=== PATIENT | female | born 1935 | race Caucasian/White ===

== ENCOUNTER 2017-09-13 05:16 | Emergency (ER) | payer MEDICARE, OTHER, SELFPAY ==
[2017-09-13 05:17] VITALS: BP 117/65; PULSE 108; RESP 18; TEMP 36.7; BMI 26.4
--- NOTE | 2017-09-13 05:21 | NURSING ---
CALLED FOR EKG PER RN REQUEST, PULLED OLD EKG'S FOR
--- NOTE | 2017-09-13 05:33 | ED.DCSUM_ITS ---
- ER Visit Summary Date of Service: 09/13/17 Chief Complaint: [] Palpitations fast heart rate History of Present Illness: The patient is a 82 F complaining of palpitations. She woke with it 1 hour ago. She feels and currently. They are mild. She has no pain. She was seen 2 weeks ago for the same. No previous ablation. She does have a pacemaker. Her labs and EKG and chest x-ray were negative. Including a troponin. She has an appointment September 27 with her matching machine operator. She is on metoprolol for the above. She has a history of SVT and paroxysmal A. fib. Physical Examination: [] Vital signs reviewed General: Well-nourished well-developed Head: Normocephalic atraumatic Eyes: Pupils equal round and reactive to light extraocular movements intact ENT: TMs clear no hemotympanum no trauma Neck: Nontender full range of motion Cardiovascular: Regular rate rhythm no murmurs normal S1-S2 Respiratory: No distress clear to auscultation bilaterally chest nontender Abdomen: Soft nontender nondistended normal bowel sounds no masses Back: Nontender no CVA tenderness Extremities: Nontender active range of motion ?4 extremities no trauma Skin: Normal color no trauma Neuro alert oriented cranial nerves II through XII intact normal strength sensation reflexes Test Results: [] Emergency Department Course and Treatment: [] Cardiogram shows sinus rhythm at a rate of 98. No acute ischemia or arrhythmia. Patient was monitored for 1 hour without arrhythmia. I do not feel she needs repeat blood work as she just had this less 2 weeks ago. I do not feel she needs cardiac enzymes. She has no chest pain. She seen her medications and follow-up with her doctor. Treatment Plan: [] Disposition: [] Impression: [] Palpitations This note was generated with [employer] dictation software. It may contain incorrect words, spelling, and punctuation that were not noted in review of the chart prior to signing ED Disposition - Plan for ED Patient: Chief Complaint: Palpitations Referrals: Johnny Arguello MD [Primary Care Provider] -
--- NOTE | 2017-09-13 05:33 | ED.DEP ---
ED Disposition - Plan for ED Patient: Disposition: Home or Assisted Living Chief Complaint: Palpitations Instructions: ED Palpitations Referrals: Johnny Arguello MD [Primary Care Provider] - Bradley Lowe MD [STAFF PHYSICIAN] -
[2017-09-13 06:00] VITALS: BP 132/64; PULSE 85
[2017-09-13 06:29] VITALS: BP 135/63; PULSE 87; RESP 18; O2SAT 97
== END 2017-09-13 06:46 | disposition home or self-care (01) ==
PROVIDERS: Emergency Provider Emergency Medicine; Family Provider Family Medicine; PCP Family Medicine
DX: R00.2 Palpitations (principal); I47.1 Supraventricular tachycardia; I48.0 Paroxysmal atrial fibrillation; Z95.0 Presence of cardiac pacemaker; E78.00 Pure hypercholesterolemia, unspecified; F41.9 Anxiety disorder, unspecified; Z79.82 Long term (current) use of aspirin; Z79.899 Other long term (current) drug therapy
CPT/HCPCS: 99284; A4216

== ENCOUNTER → 2017-09-23 07:06 | Outpatient (CLI) | payer MEDICARE, OTHER, SELFPAY ==
[2017-09-23 09:37] LABS: AST(SGOT) 22 U/L (15-37); Alanine Aminotransfer ALT/SGPT 27 U/L (13-56); Albumin, Serum 3.7 g/dL (3.2-5.0); Alkaline Phosphatase 92 U/L (45-117); Bilirubin, Direct 0.13 mg/dL (0.00-0.30); Cholesterol 167 mg/dL (200); Globulin 3.9 g/dL (2.2-4.2); High Density Lipoprotein 67 mg/dL; Protein, Total 7.6 g/dL (6.4-8.2); Triglycerides 95 mg/dL; Very Low Density Lipoprotein 19 mg/dL (5-40)
== END ==
PROVIDERS: Family Provider Family Medicine; PCP Family Medicine; Visit Provider Physician Assistant Medical
DX: E78.5 Hyperlipidemia, unspecified (principal); Z79.899 Other long term (current) drug therapy
CPT/HCPCS: 36415; 80061; 80076

== ENCOUNTER → 2017-11-21 09:32 | Outpatient (CLI) | payer MEDICARE, OTHER, SELFPAY ==
--- NOTE | 2017-11-21 09:33 | ECHOD_ITS ---
Reason For Study: VALVULAR DISEASE Procedure This was a 2D Doppler, Color Flow transthoracic echocardiogram. The exam was of adequate technical quality. Exam performed in department. Left Ventricle Normal LV size. Left ventricular systolic function is normal. The estimated ejection fraction is 65 %. Unable to assess diastolic dysfunction. No regional wall motion abnormalities noted. Right Ventricle Normal RV size. ICD or pacer leads identified within the right ventricle. Normal systolic function. Atria The left atrium is moderately enlarged. Normal right atrium. ICD or pacer leads identified within the right atrium. No doppler evidence for ASD. Mitral Valve There is severe mitral annular calcification. Extension of the mitral annular calcification onto the posterior mitral valve leaflet. Mild focal mitral valve calcification of the anterior leaflet. Moderate mitral valve stenosis. Mild-Moderate (1-2+) mitral valve insufficiency. Tricuspid Valve Normal tricuspid valve. Mild tricuspid valve insufficiency. Right ventricular systolic pressure estimated to be 37 mmHg. Aortic Valve Trisinus/trileaflet aortic valve. Moderate focal aortic valve thickening. Mild aortic stenosis. Pulmonic Valve The pulmonic valve is not well visualized. Trivial pulmonic valve insufficiency. Great Vessels Normal sized aortic root. Calcified aortic root. Pericardium/Pleural No pericardial effusion. MMode/2D Measurements & Calculations LVIDd: 2.7 cm IVSd: 1.3 cm LVOT diam: 1.9 cm LVIDs: 1.8 cm LVPWd: 1.1 cm LVOT area: 2.8 cm2 RVDd: 3.0 cm FS: 35.2 % MVA(traced): 1.3 cm2 Ao root diam: 2.8 cm LAV(MOD-bp): 67.4 ml LAV(MOD-bp) Indexed: 39.9 ml/m2 LAV(MOD-sp2): 101.0 ml LAV(MOD-sp4): 37.3 ml EDV(MOD-sp4): 67.3 ml EDV(MOD-sp2): 41.1 ml SV(MOD-sp4): 52.3 ml ESV(MOD-sp4): 15.1 ml EF(MOD-sp2): 67.6 % EF(MOD-sp4): 77.6 % SV(MOD-sp2): 27.8 ml LA A4 area: 15.9 cm2 RA A4 area: 9.1 cm2 Doppler Measurements & Calculations MV E max avelino: 148.3 cm/sec MV V2 max: 249.3 cm/sec Ao V2 max: 266.2 cm/sec MV A max avelino: 226.9 cm/sec MV max P.9 mmHg Ao max P.4 mmHg MV E/A: 0.65 MV V2 mean: 152.0 cm/sec Ao V2 mean: 179.9 cm/sec MV mean P.2 mmHg Ao mean P.8 mmHg MV V2 VTI: 68.7 cm Ao V2 VTI: 56.8 cm MVA(VTI): 1.2 cm2 JOMAR(I,D): 1.4 cm2 JOMAR(V,D): 1.4 cm2 LV V1 max: 127.5 cm/sec SV(LVOT): 79.2 ml PA V2 max: 104.2 cm/sec LV V1 max P.5 mmHg LV V1 mean P.6 mmHg LV V1 mean: 88.7 cm/sec LV V1 VTI: 28.1 cm TR max avelino: 290.4 cm/sec TR max P.1 mmHg Interpretation Summary Left ventricular systolic function is normal. The estimated ejection fraction is 65 %. The left atrium is moderately enlarged. There is severe mitral annular calcification. Extension of the mitral annular calcification onto the posterior mitral valve leaflet. Mild focal mitral valve calcification of the anterior leaflet. Moderate mitral valve stenosis. Mild-Moderate (1-2+) mitral valve insufficiency. Mild tricuspid valve insufficiency. Moderate focal aortic valve thickening. Mild aortic stenosis. Trivial pulmonic valve insufficiency. Calcified aortic root. Right ventricular systolic pressure estimated to be 37 mmHg. Unable to assess diastolic dysfunction. ICD or pacer leads identified within the right atrium ICD or pacer leads identified within the right ventricle. Ordering Physician: Alisia Snider/Bradley Lowe Referring Physician: HERSON ROUSE Performed By: Cheri Lopez, ERICKACS, RVT
--- NOTE | 2017-11-21 09:33 | CDU_ITS ---
Reason For Study: Carotid bruit Rt. Velocities/BP Lt. Velocities/BP Prox CCA 86.8/8.2 cm/sec. Prox CCA 99.7/17.6 cm/sec. Mid CCA 89.7/11.7 cm/sec. Mid CCA 104.0/21.1 cm/sec. Dist CCA 73.9/12.3 cm/sec. Dist CCA 95.0/14.7 cm/sec. Prox ICA 65.7/14.1 cm/sec. Prox ICA 63.9/17.0 cm/sec. Mid ICA 52.6/12.2 cm/sec. Mid ICA 78.0/18.8 cm/sec. Dist ICA 58.7/12.6 cm/sec. Dist ICA 59.4/16.1 cm/sec. Rt. ICA/CCA = .73. Lt. ICA/CCA = .75. Prox ECA 55.7/0.0 cm/sec. Prox ECA 90.9/4.1 cm/sec. Rt. Vert. 37.5/7.6 cm/sec. Lt. Vert. 52.2/15.8 cm/sec. Right Extracranial There is intimal thickening but no significant atherosclerotic plaque noted in the right common carotid artery. There is heterogeneous, irregular atherosclerotic plaque noted in the right internal carotid artery. There is intimal thickening but no significant atherosclerotic plaque noted in the right external carotid artery. Antegrade flow is noted in the right vertebral artery. Left Extracranial There is intimal thickening but no significant atherosclerotic plaque noted in the left common carotid artery. There is heterogeneous, irregular atherosclerotic plaque noted in the left internal carotid artery. There is no significant atherosclerotic plaque noted in the left external carotid artery. Antegrade flow is noted in the left vertebral artery. Procedure Carotid Duplex [id number]. Exam performed in department. Interpretation Summary Mild (<50%) stenosis right extracranial internal carotid. Mild (<50%) stenosis left extracranial internal carotid. Flow within the vertebral arteries is antegrade bilaterally. Ordering Physician: Alisia Snider Referring Physician: Johnny Arguello Performed By: Malka Olivera RVT
== END ==
PROVIDERS: Family Provider Family Medicine; PCP Family Medicine; Visit Provider Physician Assistant Medical
DX: I47.1 Supraventricular tachycardia (principal); I36.1 Nonrheumatic tricuspid (valve) insufficiency; I25.10 Atherosclerotic heart disease of native coronary artery without angina pectoris; I35.9 Nonrheumatic aortic valve disorder, unspecified; R09.89 Other specified symptoms and signs involving the circulatory and respiratory systems
CPT/HCPCS: 93306; 93880

== ENCOUNTER → 2017-12-15 11:38 | Outpatient (CLI) | payer MEDICARE, OTHER, SELFPAY ==
--- NOTE | 2017-12-15 11:40 | BI_ITS ---
MAMMOGRAPHY - BILATERAL SCREENING REASON FOR EXAM: Female, 82 years old. Routine annual screening examination. PERTINENT HISTORY: Non-contributory. TECHNIQUE: Digital bilateral breast hortensia (3D mammographic acquisition) in the CC and MLO projections. 2-D mediolateral oblique (MLO) and craniocaudad (CC) views of both breasts were obtained. CAD: Full Field Digital Mammography with Computer Added Detection was performed. COMPARISON: Comparison is made with prior study dated December 02, 2016 and December 02, 2015. FINDINGS: Breast Composition: The breasts are heterogeneously dense, which may obscure small masses. There are no dominant masses or suspicious calcifications. No other significant abnormalities are identified. There has been no significant change since the prior study. BI/SCREENING MAMM (CAD), BILAT IMPRESSION: Stable bilateral screening mammogram. Yearly follow-up mammogram recommended. (A) ASSESSMENT CATEGORY: BIRADS Category 1: Negative. A letter regarding these results will be sent to the patient by the facility within 30 days. Approximately 10% of breast cancers are not detected by mammography. A normal mammogram should not delay biopsy of a clinically suspicious abnormality. [id number] Electronically Signed: Elie Ramos MD at 8:41 EDT Tel [phone], Service support ,
== END ==
PROVIDERS: Family Provider Family Medicine; PCP Family Medicine; Visit Provider Family Medicine
DX: Z12.31 Encounter for screening mammogram for malignant neoplasm of breast (principal)
CPT/HCPCS: 77063; 77067

== ENCOUNTER 2018-02-11 17:28 | Emergency (ER) | payer MEDICARE, OTHER, SELFPAY ==
[2018-02-11 17:30] VITALS: BP 168/91; PULSE 98; RESP 16; TEMP 36.7; O2SAT 97; BMI 26.4
--- NOTE | 2018-02-11 17:48 | EKG12_ITS ---
Test Reason : GEN ILLNESS Blood Pressure : / mmHG Vent. Rate : 092 BPM Atrial Rate : 092 BPM P-R Int : 220 ms QRS Dur : 088 ms QT Int : 368 ms P-R-T Axes : 064 038 085 degrees QTc Int : 455 ms Sinus rhythm with 1st degree A-V block Otherwise normal ECG Confirmed by TRAVIS MCNAMARA, MERCEDES ([id number]), news videotape editor EARLENE ROUSE ([id number]) on 02/13/2018 3:05:30 PM Referred By: NICK Confirmed By:MERCEDES ROBLES MD
[2018-02-11] MEDS: 0.9% Normal Saline 1,000 ML 1000 ML IV (18:11)
[2018-02-11 18:15] VITALS: BP 136/62; PULSE 67; RESP 17; O2SAT 96
[2018-02-11 18:22] LABS: Absolute Lymphocyte Count 1.33 X10^3/ul (0.83-4.51); Absolute Neutrophil Count 4.2 X10^3/uL (2.0-7.7); Basophil# 0.01 X10^3/uL; Basophil% 0.2 % (0-1); Eosinophils% 1.6 % (0-5); Hematocrit 40.4 % (37-47); Hemoglobin 13.3 g/dl (12.0-15.0); Lymphocyte # 1.33 X10^3/ul (4.0); Lymphocyte % 21.3 % (19-41); Mean Corp Hgb Conc 32.9 g/gl (32-36); Mean Corpuscular Hgb 30.9 pg (27.0-32.0); Mean Corpuscular Volume 93.7 fL (81-99); Mean Platelet Vol. 12.9 fl (6.2-12.0); Monocyte# 0.59 X10^3/uL; Monocyte% 9.5 % (0-10); Neutrophil % 67.2 % (47-70); POSITIVE COUNT NO; POSITIVE DIFFERENTIAL NO; POSITIVE MORPHOLOGY NO; Platelet Count 105 K/mm3 (150-450); RBC Distribution Width CV 13.7 % (11.6-14.6); RBC Distribution Width SD 46.8 fl (35.1-43.9); Red Blood Count 4.31 M/mm3 (4.2-5.4); White Blood Count 6.2 K/mm3 (4.4-11.0)
--- NOTE | 2018-02-11 18:23 | ED.DCSUM_ITS ---
- ER Visit Summary Date of Service: 02/11/18 Chief Complaint: General illness History of Present Illness: The patient is a 83 F presents to the emergency department generalized illness. Patient states she woke in just felt useless . She states that everything just felt like it was in knots. She denies any chest pain, shortness of breath, nausea, vomiting, or fever. She states throughout the day, her symptoms have improved. She states that she does have a history of anxiety but has never had symptoms like this before. The patient does have a history of hypertension and prior OH. She denies any headache. She has no focal weakness. She denies any trouble with speech or with balance. Physical Examination: Vital signs reviewed General: Well-nourished, well-developed Head: Normocephalic, atraumatic Eyes: Pupils equal and reactive, extraocular muscles intact Neck, supple, no lymphadenopathy Heart: Regular rate and rhythm Respiratory: No distress, clear bilaterally Abdomen: Soft, nontender, nondistended, no peritoneal signs Back: Nontender Extremities: Nontender, no edema, no cords Skin: Normal color no rash Neuro: Alert and oriented, no focal or lateralizing deficits Test Results: [] Emergency Department Course and Treatment: [The patient presents with generalized illness. She has absolutely no symptoms aside from some fatigue. Her exam is comforting. She has no focal weakness. Her lungs are clear. She is not hypoxic, tachypneic, or tachycardic. EKG was obtained which showed sinus rhythm without ischemic change. Screening labs are also unremarkable. With fluids and observation, the patient's symptoms had abated. I do feel that this may be a component of anxiety. I did cemetery counselor the patient that if her symptoms change in any way that she needs to return immediately. She and son at bedside are comfortable this plan of care. She will be discharged home. Treatment Plan: [] Disposition: Discharge Impression: Generalized illness-resolved This note was generated with [employer] dictation software. It may contain incorrect words, spelling, and punctuation that were not noted in review of the chart prior to signing ED Disposition - Plan for ED Patient: Chief Complaint: General Illness Instructions: ED Weakness [facility] Referrals: Johnny Arguello MD [Primary Care Provider] -
[2018-02-11 18:34] LABS: Anion Gap 8 (5-15); BUN 20 mg/dL (7-18); BUN/Creat Ratio 20.9 RATIO (10-20); Chloride 105 mmol/L (98-107); Creatinine, Serum 0.96 mg/dL (0.55-1.02); EST Glomerular Filtration Rate 59 mL/min (>60); Est Glom Filt Rate - Afr Amer 72 mL/min (>60); Estimated Creatinine Clearance 38.34 ml/min; Glucose 135 mg/dL (74-106); Potassium 3.9 mmol/L (3.5-5.1); Sodium Level 142 mmol/L (136-145)
[2018-02-11 18:59] VITALS: BP 133/56; PULSE 81; RESP 20
== END 2018-02-11 19:01 | disposition home or self-care (01) ==
LOC: ED 18:29
PROVIDERS: Emergency Provider Emergency Medicine; Family Provider Family Medicine; PCP Family Medicine
DX: R69 Illness, unspecified (principal); R53.83 Other fatigue; I25.10 Atherosclerotic heart disease of native coronary artery without angina pectoris; I25.2 Old myocardial infarction; I10 Essential (primary) hypertension; F41.9 Anxiety disorder, unspecified; E78.00 Pure hypercholesterolemia, unspecified; Z79.82 Long term (current) use of aspirin; Z79.899 Other long term (current) drug therapy
CPT/HCPCS: 80048; 85025; 93005; 96360; 99285; J7030

== ENCOUNTER 2018-08-13 09:00 | Emergency (ER) | payer MEDICARE, OTHER, SELFPAY ==
[2018-08-13 09:01] VITALS: BP 195/88; PULSE 72; RESP 18; TEMP 36.6; O2SAT 99; BMI 26.6
[2018-08-13] MEDS: LORazepam 1 MG Tablet PO (09:28)
--- NOTE | 2018-08-13 10:14 | ED.DCSUM_ITS ---
- ER Visit Summary Date of Service: 08/13/18 Chief Complaint: [Nerves] History of Present Illness: The patient is a 83 F [presents to the emergency department with complaint of feeling overwhelmed and nervous. Patient's felt this way since around 2017. Patient was seen by her primary care physician and started on escitalopram in June however she is been taking it as needed instead of on a regular basis. Patient also on imipramine for her anxiety. Patient denies any chest pain or shortness of breath. She denies feeling depressed or suicidal. She is been sleeping at night. She has been eating normally. Patient has no physical complaints. She only describes some slight fullness in her head.] Physical Examination: [HEENT-PERRLA, EOMI. Cranial nerves II through XII grossly intact. TMs clear. Mucous membranes moist. No adenopathy. Cardiovascular-regular rate and rhythm without murmur or ectopy Lungs-clear to auscultation, chest wall stable without crepitus or subcu emphysema Abdomen-normoactive bowel sounds, soft, nontender, no rebound or rigidity, no peritoneal signs. Extremities-intact ?4, normal range of motion, normal pulses, atraumatic] Test Results: [None indicated] Emergency Department Course and Treatment: [Patient was given Ativan 1 mg in the emergency department and on reevaluation she is feeling markedly improved.] Treatment Plan: [I discussed case with Dr. Bradley Reyna who was covering for Dr. Johnny Arguello who recommended as needed Ativan as well as continuing the Lexapro on a daily basis as well as the imipramine and follow-up with Dr. Johnny Arguello in the office.] Disposition: [Discharged home in stable condition] Impression: [Anxiety reaction] This note was generated with [employer] dictation software. It may contain incorrect words, spelling, and punctuation that were not noted in review of the chart prior to signing ED Disposition - Plan for ED Patient: Chief Complaint: General Illness Referrals: Johnny Arguello MD [Primary Care Provider] -
--- NOTE | 2018-08-13 10:14 | ED.DEP ---
ED Disposition - Plan for ED Patient: Chief Complaint: General Illness Instructions: ED Stress React Prescriptions: Lorazepam [Ativan] 0.5 mg PO TID PRN #20 tab PRN Reason: Anxiety Referrals: Johnny Arguello MD [Primary Care Provider] - 5-7 Days
== END 2018-08-13 10:46 | disposition home or self-care (01) ==
PROVIDERS: Emergency Provider Emergency Medicine; Family Provider Family Medicine; PCP Family Medicine
DX: F41.1 Generalized anxiety disorder (principal); I10 Essential (primary) hypertension; I47.1 Supraventricular tachycardia; I34.1 Nonrheumatic mitral (valve) prolapse; Z79.82 Long term (current) use of aspirin; Z79.899 Other long term (current) drug therapy
CPT/HCPCS: 99283

== ENCOUNTER 2019-01-07 07:58 | Emergency (ER) | payer MEDICARE, OTHER, SELFPAY ==
[2019-01-07 07:59] VITALS: BP 185/77; PULSE 84; RESP 16; TEMP 36.8; O2SAT 97; BMI 27.3
--- NOTE | 2019-01-07 08:17 | RAD_ITS ---
STUDY: X-RAY - ACUTE ABDOMINAL SERIES REASON FOR EXAM: Female, 83 years old. Ane constipation TECHNIQUE: Single view of the chest. Supine, and erect view(s) of the abdomen were obtained. COMPARISON: 08/30/2017 chest x-ray, 01/25/2016 CT scan abdomen and pelvis FINDINGS: There is a left-sided pacer with leads overlying the right atrium and ventricle. There are stable fibrotic changes suggested in the lung bases. The lungs are clear and expanded. Normal size heart. Normal mediastinum and jareth. Normal visualized pulmonary arteries. Normal visualized aortic arch and descending thoracic aorta. There is moderate stool in the colon. There is abundant stool within the sigmoid and rectum. Postoperative change in the right midline abdomen. There is dextroscoliosis of the lumbar spine. There is multilevel degenerative change. RAD/Acute Abdomen Inc Chest IMPRESSION: Stable chest. Pacemaker. Constipation fecal impaction. Scoliosis, degenerative change. Electronically Signed: Kalyn Martines MD at 8:57 EDT Tel , Service support ,
--- NOTE | 2019-01-07 08:23 | ED.DCSUM_ITS ---
History of Present Illness Chief Complaint: Abd Pain Detail of Chief Complaint: Sometimes upper sometimes lower Informant: Patient Onset: Month(s) - 4 months Timing: Intermittent Quality: It is presents Location: At times right and left upper quadrant and at times right and left lower qu Current Severity: - - Presently no discomfort Maximum Severity: - - Unable to quantitate. Worsened by: Nothing Relieved by: Nothing Associated Symptoms: Constipation, which patient states is a chronic issue Narrative: Patient is an 83-year-old woman who presents to determine what the cause of her upper and lower intermittent abdominal pain is. She states onset 4 months ago. She saw her primary care physician 1 month ago. She states he prescribed medication . She is on able to tell me what medication she was prescribed. She denies fever, chills night sweats. She denies weight gain or weight loss. She denies cardiac or respiratory symptoms. She presently denies abdominal pain. She states she has problems with bowel movement, which is chronic. She denies change in color, consistency or frequency of her bowel movements. Prior similar symptoms: Yes Recent Illness/Hospitalization: Yes - Past Medical History (1) Acute myocardial infarction Status: Chronic (2) Atrioventricular block, complete Status: Chronic (3) Benign essential hypertension Status: Chronic (4) CAD (coronary artery disease) Status: Chronic Comment: had a cardiac cath and no intervention necessary. (5) Hyperlipidemia Status: Chronic (6) Hypertension Status: Chronic (7) Pulmonary HTN Status: Chronic (8) Supraventricular tachycardia Status: Chronic Past Medical History - Allergies and Home Meds Allergies/Adverse Reactions: Allergies No Known Allergies Allergy (Verified 01/07/19 07:59) Primary Care Physician: Johnny Arguello MD [Primary Care Provider] - Prior records reviewed: Yes Surgical History: cataract - bilateral, cholecystectomy, hysterectomy - with oophorectomy for fibroids, pacemaker implantation - October of [address] Perez Lives: Alone Smoking Status: Never smoker Alcohol: None - Family History Maternal Family History: Reports: - - Her mother choked to in a restaurant but had no significan chronic medical illnesses. Paternal Family History: Reports: - - her father at 89 YOA of old AGE Sibling Family History: Reports: No pertinent history, - - she had a siser who at 12 YOA with a copper storage disease Review of Systems General: Denies: Chills, Fever, Malaise, Subjective, Sweats, Weight loss Eyes: Denies: Visual changes - bilaterally, Blurred Vision - bilaterally, Diplopia ENT: Denies: Rhinorrhea, Sore throat Cardiovascular: Denies: Chest pain, Palpitations Respiratory: Denies: Dyspnea, Cough, Dyspnea on exertion, Orthopnea, Paroxysmal nocturnal dyspnea Gastrointestinal: Reports: Abdominal pain, Constipation. Denies: Nausea, Vomiting, Diarrhea, Melena, Hematochezia Genitourinary: Denies: Dysuria, Hematuria, Frequency Musculoskeletal: Denies: Back pain, Extremity Pain Skin: Denies: Rash, Wounds Neurological: Denies: Headache, Weakness, Numbness Hematologic: Denies: Easy bruising, Easy bleeding Allergy: Denies: Uticaria, Swelling of the mouth Physical Exam Vital Signs/Narrative: Vital Signs Temp Pulse Resp BP Pulse Ox 01/07/19 07:59 98.2 F 84 16 185/77 H 97 Inital Vital Signs reviewed: Yes General: Well nourished, Well developed, No Acute Distress Head: Normocephalic, Atraumatic Eyes: Perrl, EOMI ENT: Moist mucous membranes, No rhinorrhea Neck: Supple, Nontender Cardiovascular: Regular rate, Regular rhythm, No murmurs Respiratory: No distress, CTA bilaterally, Chest nontender Abdomen: Soft, Nontender, Nondistended, Normal bowel sounds, No masses, - - Well-healed surgical scars noted. Back: Nontender, Normal Inspection Extremities: Nontender, No edema Skin: Normal color, No rash Neurological: Alert, Oriented x3, Cranial nerves II-XII grossly intact, Normal Strength, Normal Sensation Psychological: Normal affect, Normal Mood Diagnostic/Tx/Re-eval Chest X-Ray - ED: - - Three-view x-ray of the abdomen reveals no acute process on the chest portion. There is minimal chronic changes. Dual-chamber pacemaker noted. Film is rotated. The abdominal portion reveals evidence of scoliosis. No ossific gas pattern with significant amount of stool distal of the splenic fracture and in the sigmoid/rectal area. There is no evidence of free air or obstruction. - Medical Decision Making With intermittent discomfort for 4 months and presently no discomfort uncertain cause. Because patient is elderly will obtain CBC and BMP as well as x-ray. If evidence of anemia or hypercalcemia will scan looking for malignancy otherwise w ould be appropriate for outpatient follow-up and possible colonoscopy. Blood sugar is elevated. She is not diabetic. We will have her follow-up with Dr. JEFF Arguello for repeat blood work. Will place on MiraLAX 3 times a day for the next week. ED Disposition - Plan for ED Patient: Disposition: Home or Assisted Living Diagnosis: Bilateral lower abdominal pain, Hyperglycemia, unspecified, Constipation in female Instructions: ED Abdominal Pain Unkn Cause, ED Constipation, ED Hyperglycemia New Susp Diabetes Referrals: Johnny Arguello MD [Primary Care Provider] - 3-5 Days Additional Instructions: Recommend MiraLAX 3 times a day for the next 1 to 2 weeks then twice a day thereafter. Recommend follow-up with Dr. JEFF Arguello in 5 to 7 days for blood work and specifically assess blood sugar.
[2019-01-07 08:32] LABS: Absolute Lymphocyte Count 0.86 X10^3/ul (0.83-4.51); Absolute Neutrophil Count 5.2 X10^3/uL (2.0-7.7); Basophil# 0.03 X10^3/uL; Basophil% 0.4 % (0-1); Eosinophil# 0.13 X10^3/uL; Eosinophils% 1.9 % (0-5); Hematocrit 40.8 % (37-47); Hemoglobin 13.3 g/dl (12.0-15.0); Lymphocyte # 0.86 X10^3/ul (4.0); Lymphocyte % 12.7 % (19-41); Mean Corp Hgb Conc 32.6 g/gl (32-36); Mean Corpuscular Hgb 31.4 pg (27.0-32.0); Mean Corpuscular Volume 96.2 fL (81-99); Mean Platelet Vol. 13.1 fl (6.2-12.0); Monocyte# 0.52 X10^3/uL; Monocyte% 7.7 % (0-10); Neutrophil # 5.21 X10^3/uL (2.7-7.7); Platelet Count 122 K/mm3 (150-450); RBC Distribution Width CV 14.9 % (11.6-14.6); RBC Distribution Width SD 50.5 fl (35.1-43.9); Red Blood Count 4.24 M/mm3 (4.2-5.4); White Blood Count 6.8 K/mm3 (4.4-11.0)
[2019-01-07 08:33] LABS: POSITIVE COUNT NO; POSITIVE DIFFERENTIAL NO; POSITIVE MORPHOLOGY NO
[2019-01-07 08:46] LABS: Anion Gap 10 (5-15); BUN 16 mg/dL (7-18); Calcium,Total 8.9 mg/dL (8.5-10.1); Chloride 104 mmol/L (98-107); EST Glomerular Filtration Rate 56 mL/min (>60); Est Glom Filt Rate - Afr Amer 68 mL/min (>60); Estimated Creatinine Clearance 36.81 ml/min; Glucose 151 mg/dL (74-106); Sodium Level 144 mmol/L (136-145)
[2019-01-07 08:57] VITALS: BP 165/72; PULSE 72; RESP 16; O2SAT 98
--- NOTE | 2019-01-07 09:25 | ED.RN ---
pt requested to walk home instead of waiting for a ride. physician ok with that.
== END 2019-01-07 09:32 | disposition home or self-care (01) ==
PROVIDERS: Emergency Provider Emergency Medicine; Family Provider Family Medicine; PCP Family Medicine
DX: R10.31 Right lower quadrant pain (principal); R10.32 Left lower quadrant pain; R73.9 Hyperglycemia, unspecified; K56.41 Fecal impaction; I25.10 Atherosclerotic heart disease of native coronary artery without angina pectoris; I25.2 Old myocardial infarction; I10 Essential (primary) hypertension; E78.5 Hyperlipidemia, unspecified; I27.20 Pulmonary hypertension, unspecified; I47.1 Supraventricular tachycardia; I44.2 Atrioventricular block, complete; Z95.0 Presence of cardiac pacemaker; Z79.82 Long term (current) use of aspirin; Z79.899 Other long term (current) drug therapy
CPT/HCPCS: 74022; 80048; 85025; 99285

== ENCOUNTER → 2019-03-07 13:21 | Outpatient (CLI) | payer MEDICARE, OTHER, SELFPAY ==
[2019-02-19 10:52] VITALS: BMI 27.4
--- NOTE | 2019-03-07 13:26 | ECHOD_ITS ---
Reason For Study: MURMUR Procedure This was a 2D Doppler, Color Flow transthoracic echocardiogram. The study was technically difficult. Exam performed in department. Left Ventricle Normal left ventricle. Left ventricular systolic function is normal. The estimated ejection fraction is 65 %. There is evidence of diastolic dysfunction. No regional wall motion abnormalities noted. Right Ventricle Normal RV size. ICD or pacer leads identified within the right ventricle. Normal systolic function. Atria The left atrium is moderately enlarged. Normal right atrium. ICD or pacer leads identified within the right atrium. No doppler evidence for ASD. Mitral Valve There is severe mitral annular calcification. Extension of the mitral annular calcification onto the mitral valve leaflets. Moderate to severe mitral valve stenosis. Mild (1+) mitral valve insufficiency. Tricuspid Valve Normal tricuspid valve. Trivial tricuspid valve insufficiency. Right ventricular systolic pressure estimated to be 36 mmHg. Aortic Valve Trisinus/trileaflet aortic valve. Mild diffuse aortic valve thickening. Mild focal aortic valve calcification. Moderate aortic stenosis. Pulmonic Valve The pulmonic valve is not well visualized. Trivial pulmonic valve insufficiency. Great Vessels The aortic root is not well visualized. Pericardium/Pleural No pericardial effusion. MMode/2D Measurements & Calculations RVDd: 3.0 cm LVOT diam: 1.9 cm LAV(MOD-bp): 78.9 ml LVOT area: 2.9 cm2 LAV(MOD-bp) Indexed: 44.3 ml/m2 LAV(MOD-sp2): 67.0 ml LAV(MOD-sp4): 68.8 ml LA dimension(2D): 3.7 cm LA A4 area: 19.9 cm2 RA A4 area: 12.6 cm2 Time Measurements MV dec time: 0.43 sec Doppler Measurements & Calculations MV E max fransico: 165.4 cm/sec Lat Peak E' Fransico: 7.0 cm/sec Med Peak E' Fransico: 3.6 cm/sec MV A max fransico: 224.2 cm/sec E/E' lat: 23.6 E/E' med: 46.3 MV E/A: 0.74 MV V2 max: 255.8 cm/sec MV P1/2t max fransico: 165.6 cm/sec Ao V2 max: 284.8 cm/sec MV max P.2 mmHg MV P1/2t: 134.8 msec Ao max P.6 mmHg MV V2 mean: 151.1 cm/sec MV dec slope: 360.0 cm/sec2 Ao V2 mean: 200.5 cm/sec MV mean P.2 mmHg Ao mean P.5 mmHg MV V2 VTI: 67.3 cm MVA(P1/2t): 1.6 cm2 Ao V2 VTI: 57.4 cm MVA(VTI): 0.99 cm2 JOMAR(I,D): 1.2 cm2 JOMAR(V,D): 1.0 cm2 LV V1 max: 101.2 cm/sec SV(LVOT): 66.8 ml PA V2 max: 100.7 cm/sec LV V1 max P.2 mmHg LV V1 mean P.3 mmHg LV V1 mean: 71.4 cm/sec LV V1 VTI: 22.8 cm TR max fransico: 288.2 cm/sec MV P1/2t-pr_phl: 116.5 msec TR max P.2 mmHg Interpretation Summary The study was technically difficult. Left ventricular systolic function is normal. The estimated ejection fraction is 65 %. The left atrium is moderately enlarged. There is severe mitral annular calcification. Extension of the mitral annular calcification onto the mitral valve leaflets. Moderate to severe mitral valve stenosis. Mild (1+) mitral valve insufficiency. Trivial tricuspid valve insufficiency. Moderate aortic stenosis. Trivial pulmonic valve insufficiency. Right ventricular systolic pressure estimated to be 36 mmHg. There is evidence of diastolic dysfunction. ICD or pacer leads identified within the right atrium ICD or pacer leads identified within the right ventricle. Ordering Physician: Bradley Lowe Referring Physician: Johnny Arguello Performed By: Salima Maher, RDCS, RVT
[2019-03-07 17:00] LABS: AST(SGOT) 26 U/L (15-37); Alanine Aminotransfer ALT/SGPT 28 U/L (13-56); Alkaline Phosphatase 85 U/L (45-117); Bilirubin, Direct 0.13 mg/dL (0.00-0.30); Cholesterol 209 mg/dL (200); High Density Lipoprotein 74 mg/dL; Triglycerides 114 mg/dL; Very Low Density Lipoprotein 23 mg/dL (5-40)
== END ==
PROVIDERS: Family Provider Family Medicine; PCP Family Medicine; Referring Provider Internal Medicine Cardiovascular Disease; Visit Provider Internal Medicine Cardiovascular Disease
DX: R01.1 Cardiac murmur, unspecified (principal); I35.0 Nonrheumatic aortic (valve) stenosis; I34.2 Nonrheumatic mitral (valve) stenosis; I34.0 Nonrheumatic mitral (valve) insufficiency; E78.5 Hyperlipidemia, unspecified
CPT/HCPCS: 36415; 80061; 80076; 93306

== ENCOUNTER → 2019-04-20 16:23 | Outpatient (CLI) | payer MEDICARE, OTHER, SELFPAY ==
[2019-02-19 10:52] VITALS: BMI 27.4
[2019-04-20 18:05] LABS: Hemoglobin A1c 5.9 % (4.2-6.3)
[2019-04-20 18:25] LABS: AST(SGOT) 18 U/L (15-37); Alanine Aminotransfer ALT/SGPT 24 U/L (13-56); Albumin, Serum 3.6 g/dL (3.2-5.0); Alkaline Phosphatase 82 U/L (45-117); Anion Gap 7 (5-15); BUN 19 mg/dL (7-18); BUN/Creat Ratio 19.7 RATIO (10-20); Calcium,Total 8.8 mg/dL (8.5-10.1); Chloride 106 mmol/L (98-107); Cholesterol 184 mg/dL (200); Creatinine, Serum 0.96 mg/dL (0.55-1.02); EST Glomerular Filtration Rate 59 mL/min (>60); Est Glom Filt Rate - Afr Amer 71 mL/min (>60); Globulin 3.6 g/dL (2.2-4.2); Glucose 129 mg/dL (74-106); High Density Lipoprotein 62 mg/dL; Potassium 4.5 mmol/L (3.5-5.1); Protein, Total 7.2 g/dL (6.4-8.2); Sodium Level 143 mmol/L (136-145); Thyroid Stim Hormone (TSH) 2.49 uIU/mL (0.358-3.74); Triglycerides 139 mg/dL; Very Low Density Lipoprotein 28 mg/dL (5-40)
[2019-04-20 18:31] LABS: Absolute Lymphocyte Count 1.63 X10^3/uL (0.83-4.51); Absolute Neutrophil Count 4.4 X10^3/uL (2.0-7.7); Basophil# 0.02 X10^3/uL; Basophil% 0.3 % (0-1); Eosinophil# 0.14 X10^3/uL; Lymphocyte # 1.63 X10^3/ul (4.0); Lymphocyte % 23.6 % (19-41); Mean Corp Hgb Conc 32.5 g/dL (32-36); Mean Corpuscular Hgb 31.6 pg (27.0-32.0); Mean Corpuscular Volume 97.1 fL (81-99); Mean Platelet Vol. 13.6 fl (6.2-12.0); Monocyte# 0.75 X10^3/uL; Monocyte% 10.9 % (0-10); NRBC Flagged by Analyzer 0 % (0-5); Neutrophil # 4.35 X10^3/uL (2.7-7.7); Neutrophil % 62.9 % (47-70); Platelet Count 112 K/mm3 (150-450); RBC Distribution Width SD 49.7 fl (35.1-43.9); Red Blood Count 4.12 M/mm3 (4.2-5.4); White Blood Count 6.9 K/mm3 (4.4-11.0)
[2019-04-20 18:45] LABS: Differential Comment SCANNED
[2019-04-21 08:44] LABS: Vitamin B12 251 pg/mL (211-911)
== END ==
PROVIDERS: Family Provider Family Medicine; PCP Family Medicine; Referring Provider Family Medicine; Visit Provider Family Medicine
DX: I10 Essential (primary) hypertension (principal); E78.00 Pure hypercholesterolemia, unspecified; R73.09 Other abnormal glucose; R41.3 Other amnesia
CPT/HCPCS: 36415; 80053; 80061; 82607; 83036; 84443; 85025

== ENCOUNTER → 2019-08-14 14:54 | Outpatient (CLI) | payer MEDICARE, OTHER, SELFPAY ==
[2019-02-19 10:52] VITALS: BMI 27.4
--- NOTE | 2019-08-14 14:59 | RAD_ITS ---
STUDY: X-RAY - RIGHT KNEE REASON FOR EXAM: Female, 84 years old. knee pain, mostly right TECHNIQUE: 4 view(s) of the knee. Weight-bearing COMPARISON: None. FINDINGS: No acute fracture or dislocation. Near-complete lateral compartment joint space. Moderate tricompartmental osteoarthritis. No significant joint effusion. RAD/Knee 4 or More Views IMPRESSION: Near complete lateral compartment joint space loss. Moderate tricompartmental osteoarthritis. Electronically Signed: Ayad Perez DO at 11:07 EST Tel , Service support ,
--- NOTE | 2019-08-14 14:59 | RAD_ITS ---
STUDY: X-RAY - LEFT KNEE REASON FOR EXAM: Female, 84 years old. knee pain, mostly right TECHNIQUE: 4 view(s) of the knee. Weight-bearing COMPARISON: None. FINDINGS: Moderate medial compartment joint space loss. Moderate tricompartmental osteoarthritis. No acute fracture or dislocation. No significant joint effusion RAD/Knee 4 or More Views IMPRESSION: Degenerative changes as detailed above Electronically Signed: Ayad Perez DO at 11:09 EST Tel , Service support ,
== END ==
LOC: MTLAB 14:59 → MTRAD 15:09
PROVIDERS: Family Provider Family Medicine; PCP Family Medicine; Referring Provider Family Medicine; Visit Provider Family Medicine
DX: M17.0 Bilateral primary osteoarthritis of knee (principal)
CPT/HCPCS: 73564

== ENCOUNTER → 2020-03-19 06:30 | Outpatient (REF) | payer MEDICARE, OTHER, SELFPAY ==
[2019-08-20 12:46] VITALS: BMI 26.9
[2020-03-19 09:58] LABS: Color, Urine Yellow (Yellow); Glucose, Dipstick Normal (Normal); Ketone-Dipstick 5 mg/dl (Negative); Leukocyte Esterase-Dipstick 25 /ul (Negative); Nitrite-Dipstick Negative (Negative); Occult Blood-Urine Negative /ul (Negative); Protein-Dipstick 15 mg/dl (Negative); Specific Gravity, Urine 1.025 (1.002-1.030); Urine Bilirubin Dipstick Negative (Negative); Urine Clarity Sl. Cloudy (Clear); Urine Urobilinogen 1 mg/dl (Normal)
== END ==
LOC: OLS.DANBUR 06:30
PROVIDERS: PCP Family Medicine
DX: N39.0 Urinary tract infection, site not specified (principal)
CPT/HCPCS: 81002; 87077; 87086; 87088; 87186

== ENCOUNTER → 2020-03-26 05:00 | Outpatient (REF) | payer MEDICARE, OTHER, SELFPAY ==
[2019-08-20 12:46] VITALS: BMI 26.9
[2020-03-26 08:30] LABS: Hematocrit 27.5 % (37-47); Hemoglobin 8.1 g/dL (12.0-15.0); Mean Corp Hgb Conc 29.5 g/dL (32-36); Mean Corpuscular Volume 88.1 fL (81-99); Mean Platelet Vol. 12.7 fl (6.2-12.0); Platelet Count 132 K/mm3 (150-450); RBC Distribution Width CV 16.2 % (11.6-14.6); RBC Distribution Width SD 52.4 fl (35.1-43.9); Red Blood Count 3.12 M/mm3 (4.2-5.4); White Blood Count 4.7 K/mm3 (4.4-11.0)
[2020-03-26 08:39] LABS: Anion Gap 4 (5-15); BUN 16 mg/dL (7-18); BUN/Creat Ratio 21.9 RATIO (10-20); Calcium,Total 8.4 mg/dL (8.5-10.1); Chloride 105 mmol/L (98-107); Creatinine, Serum 0.73 mg/dL (0.55-1.02); EST Glomerular Filtration Rate 81 mL/min (>60); Est Glom Filt Rate - Afr Amer 97 mL/min (>60); Glucose 92 mg/dL (74-106); Potassium 3.1 mmol/L (3.5-5.1); Sodium Level 140 mmol/L (136-145)
[2020-03-26 09:01] LABS: Hemoglobin A1c 5.8 % (3.8-5.6)
== END ==
LOC: OLS.DANBUR 05:00
PROVIDERS: PCP Family Medicine; Visit Provider Family Medicine
DX: I10 Essential (primary) hypertension (principal); K92.2 Gastrointestinal hemorrhage, unspecified; Z79.899 Other long term (current) drug therapy
CPT/HCPCS: 36415; 80048; 83036; 85027

== ENCOUNTER → 2020-03-27 08:25 | Outpatient (CLI) | payer MEDICARE, OTHER, SELFPAY ==
[2019-08-20 12:46] VITALS: BMI 26.9
[2020-03-27] VITALS (7 sets, daily range): BP systolic 122–153; BP diastolic 40–61; PULSE 59–65; RESP 14–18; TEMP 36.3–37.2; O2SAT 96–100; BMI 25.7
--- NOTE | 2020-03-27 14:42 | NURSING ---
flushing with NS. left hand has coban dressing from hemotoma from IV start. fingers dusky, warm. hemoatoma is reduced in size.
== END ==
LOC: MEDOUTP 08:30
PROVIDERS: PCP Family Medicine; Referring Provider Family Medicine; Visit Provider Family Medicine
DX: D64.9 Anemia, unspecified (principal)
CPT/HCPCS: 36415; 36430; 86850; 86900; 86901; 86920; 86922; J7040; P9016; A4216

== ENCOUNTER → 2020-04-03 04:45 | Outpatient (REF) | payer MEDICARE, OTHER, SELFPAY ==
[2020-03-27 08:50] VITALS: BMI 25.7
[2020-04-03 08:30] LABS: Hematocrit 35.6 % (37-47); Hemoglobin 10.8 g/dL (12.0-15.0); Mean Corp Hgb Conc 30.3 g/dL (32-36); Mean Corpuscular Hgb 27.2 pg (27.0-32.0); Mean Corpuscular Volume 89.7 fL (81-99); Mean Platelet Vol. 13.5 fl (6.2-12.0); Platelet Count 136 K/mm3 (150-450); RBC Distribution Width CV 16.7 % (11.6-14.6); RBC Distribution Width SD 53.8 fl (35.1-43.9); Red Blood Count 3.97 M/mm3 (4.2-5.4); White Blood Count 6.7 K/mm3 (4.4-11.0)
[2020-04-03 08:43] LABS: Anion Gap 4 (5-15); BUN 19 mg/dL (7-18); BUN/Creat Ratio 24.7 RATIO (10-20); Calcium,Total 8.6 mg/dL (8.5-10.1); Chloride 106 mmol/L (98-107); Creatinine, Serum 0.77 mg/dL (0.55-1.02); EST Glomerular Filtration Rate 76 mL/min (>60); Est Glom Filt Rate - Afr Amer 92 mL/min (>60); Glucose 87 mg/dL (74-106); Potassium 3.5 mmol/L (3.5-5.1); Sodium Level 141 mmol/L (136-145)
== END ==
LOC: OLS.DANBUR 04:45
PROVIDERS: Internal Medicine; PCP Family Medicine
DX: K92.2 Gastrointestinal hemorrhage, unspecified (principal); E78.00 Pure hypercholesterolemia, unspecified; I10 Essential (primary) hypertension
CPT/HCPCS: 36415; 80048; 85027

== ENCOUNTER → 2020-07-24 05:00 | Outpatient (REF) | payer MEDICARE, OTHER, SELFPAY ==
[2020-04-18 14:09] VITALS: BMI 23.8
[2020-07-24 09:32] LABS: Absolute Lymphocyte Count 0.64 X10^3/uL (0.83-4.51); Absolute Neutrophil Count 3.7 X10^3/uL (2.0-7.7); Basophil# 0.02 X10^3/uL; Basophil% 0.4 % (0-1); Eosinophil# 0.05 X10^3/uL; Hematocrit 39.6 % (37-47); Hemoglobin 12.5 g/dL (12.0-15.0); Lymphocyte # 0.64 X10^3/ul (4.0); Lymphocyte % 13.2 % (19-41); Mean Corp Hgb Conc 31.6 g/dL (32-36); Mean Corpuscular Hgb 31.6 pg (27.0-32.0); Monocyte# 0.47 X10^3/uL; Monocyte% 9.7 % (0-10); NRBC Flagged by Analyzer 0 % (0-5); Neutrophil # 3.66 X10^3/uL (2.7-7.7); Neutrophil % 75.5 % (47-70); POSITIVE COUNT YES; Platelet Count 76 K/mm3 (150-450); RBC Distribution Width CV 15.1 % (11.6-14.6); RBC Distribution Width SD 55.6 fl (35.1-43.9); Red Blood Count 3.96 M/mm3 (4.2-5.4); White Blood Count 4.9 K/mm3 (4.4-11.0)
[2020-07-24 09:33] LABS: Differential Indicated SCAN CRITERIA MET
[2020-07-24 10:27] LABS: Platelet Estimate MOD DEC (ADEQ)
== END ==
LOC: OLS.DANBUR 05:00
PROVIDERS: PCP Family Medicine
DX: I10 Essential (primary) hypertension (principal); K92.2 Gastrointestinal hemorrhage, unspecified
CPT/HCPCS: 36415; 85025

== ENCOUNTER → 2020-07-25 15:59 | Outpatient (CLI) | payer MEDICARE, OTHER, SELFPAY ==
[2020-04-18 14:09] VITALS: BMI 23.8
[2020-07-25 16:06] LABS: Bacteria 0 SEEN /hpf (None Seen); Mucous, Urine 0 SEEN /hpf (<or=2+); Red Blood Cells-Urine 0 SEEN /hpf (0-5)
[2020-07-25 17:26] LABS: Absolute Lymphocyte Count 1.19 X10^3/uL (0.83-4.51); Absolute Neutrophil Count 3.2 X10^3/uL (2.0-7.7); Basophil# 0.03 X10^3/uL; Basophil% 0.6 % (0-1); Eosinophil# 0.08 X10^3/uL; Eosinophils% 1.6 % (0-5); Hematocrit 39.1 % (37-47); Lymphocyte # 1.19 X10^3/ul (4.0); Lymphocyte % 23.8 % (19-41); Mean Corp Hgb Conc 30.7 g/dL (32-36); Mean Corpuscular Hgb 30.5 pg (27.0-32.0); Mean Corpuscular Volume 99.2 fL (81-99); NRBC Flagged by Analyzer 0 % (0-5); Neutrophil % 63.8 % (47-70); POSITIVE COUNT YES; Platelet Count 78 K/mm3 (150-450); RBC Distribution Width CV 15.1 % (11.6-14.6); RBC Distribution Width SD 55.3 fl (35.1-43.9); Red Blood Count 3.94 M/mm3 (4.2-5.4)
[2020-07-25 17:30] LABS: Differential Indicated SCAN CRITERIA MET
[2020-07-25 17:37] LABS: Color, Urine Yellow (Yellow); Glucose, Dipstick Normal (Normal); Ketone-Dipstick Negative (Negative); Leukocyte Esterase-Dipstick 25 /ul (Negative); Nitrite-Dipstick Negative (Negative); Occult Blood-Urine Negative /ul (Negative); Protein-Dipstick 30 mg/dl (Negative); Urine Bilirubin Dipstick Negative (Negative); Urine Clarity Clear (Clear); Urine Urobilinogen 1 mg/dl (Normal)
[2020-07-25 17:51] LABS: Differential Comment SCANNED
[2020-07-25 17:54] LABS: Protein:Creat Ratio 184 mg/g CRE (0-200)
[2020-07-25 17:57] LABS: Squamous Epithelial Cells - UA 0-5 SEEN /hpf (5-10); White Blood Cells 0-5 SEEN /hpf (0-5)
[2020-07-25 18:02] LABS: ALB/GLOB Ratio 1.2 RATIO (0.9-2.4); AST(SGOT) 16 U/L (15-37); Alanine Aminotransfer ALT/SGPT 18 U/L (13-56); Albumin, Serum 3.7 g/dL (3.2-5.0); Alkaline Phosphatase 78 U/L (45-117); Anion Gap 6 (5-15); BUN 18 mg/dL (7-18); BUN/Creat Ratio 21.8 RATIO (10-20); Calcium,Total 8.7 mg/dL (8.5-10.1); Chloride 105 mmol/L (98-107); Cholesterol 196 mg/dL (200); Creatinine, Serum 0.82 mg/dL (0.55-1.02); EST Glomerular Filtration Rate 70 mL/min (>60); Est Glom Filt Rate - Afr Amer 85 mL/min (>60); Globulin 3.1 g/dL (2.2-4.2); Glucose 82 mg/dL (74-106); High Density Lipoprotein 67 mg/dL; Phosphorus 3.4 mg/dL (2.5-4.9); Potassium 3.3 mmol/L (3.5-5.1); Protein, Total 6.8 g/dL (6.4-8.2); Sodium Level 144 mmol/L (136-145); Triglycerides 72 mg/dL; Very Low Density Lipoprotein 14 mg/dL (5-40)
[2020-07-25 18:09] LABS: Hemoglobin A1c 5.5 % (3.8-5.6)
[2020-07-26 10:56] LABS: PTHIN 107.3 pg/mL (18.4-80.1)
== END ==
PROVIDERS: PCP Family Medicine; Referring Provider Family Medicine; Visit Provider Family Medicine
DX: I25.10 Atherosclerotic heart disease of native coronary artery without angina pectoris (principal); N18.30 Chronic kidney disease, stage 3 unspecified; R73.02 Impaired glucose tolerance (oral)
CPT/HCPCS: 36415; 80053; 80061; 81001; 82570; 83036; 83970; 84100; 84156; 85025

== ENCOUNTER 2020-10-14 21:02 | Inpatient (IN) | payer MEDICARE, OTHER, SELFPAY ==
[2020-04-18 14:09] VITALS: BMI 23.8
[2020-10-14 21:04] VITALS: BP 144/58; BP 152/56; PULSE 66; PULSE 67; RESP 18; RESP 19; TEMP 37.1; O2SAT 86; O2SAT 93; BMI 24.4
--- NOTE | 2020-10-14 21:24 | CT_ITS ---
HISTORY: moderate head injury Technique:CT Head or Brain W/O Contrast Injection. Sagittal and coronal 2-D reformats Number of Images including paperwork:245 Comparison: Of the patient's 34 previous radiologic exams at this institution, the most recent comparison CT scan of the brain is from July 24, 2012 Findings: Periventricular deep and subcortical white matter disease is present. Left frontal and facial scalp contusion. No underlying skull fracture. Paranasal sinuses are clear. The brain is atrophic. Calcific ASCVD involves intracranial arteries. No acute intracranial edema or hemorrhage. No acute abnormality of orbits. Middle ear cavities and mastoid air cells are well aerated. Skull is normal. CT/Brain/Head without Contrast IMPRESSION: No acute intracranial abnormality. Left frontal, parietal and even temporal region scalp contusion. The brain appears to be free of hemorrhage Chronic changes as above. ASPECT 10. Individualized dose optimization techniques were used for this CT. at 2315 Reported and signed by: Jonel Mane MD Electronically Signed: Jonel Mane MD at 23:14 EST Tel , Service support ,
--- NOTE | 2020-10-14 21:24 | EKG12_ITS ---
Test Reason : FALL Blood Pressure : / mmHG Vent. Rate : 065 BPM Atrial Rate : 065 BPM P-R Int : 226 ms QRS Dur : 092 ms QT Int : 470 ms P-R-T Axes : 093 037 085 degrees QTc Int : 488 ms Sinus rhythm with 1st degree A-V block Otherwise normal ECG Confirmed by EDE MCNAMARA, VISH ([id number]), medical editor JIN RODRIGUEZ ([id number]) on 10/20/2020 10:21:53 A M Referred By: TATIANA Confirmed By:JEROD MERA MD
--- NOTE | 2020-10-14 21:25 | CT_ITS ---
HISTORY: polytrauma TECHNIQUE: Helically acquired images were obtained of the chest following the intravenous administration of 100 ML of Isovue-370 Iodinated contrast. as per pulmonary angiogram protocol with 2D MIP reconstructions. A radiation dose optimization technique was used for this scan. COMPARISON: Comparison chest x-ray August 30, 2017. Comparison CT angiogram of the chest is from January 21, 2016. FINDINGS: # of images incl. paperwork: [id number] Left chest wall dual-lead cardiac pacer persists. Interstitial pulmonary edema. Basilar atelectasis.. Tiny bilateral pleural effusions Within the thoracic spinethere is a dextroscoliosis that could be positional. Mild kyphosis. Minimal degenerative disc disease. . Anterior and posterior enthesophytes. Bilateral glenohumeral osteoarthritis. Vertebral body height is normal. Facets are well aligned. No rib lesions are perceived. Heart is enlarged. Left ventricular hypertrophy. Severe mitral valve disease possibly rheumatic heart disease. Severe coronary artery calcific atherosclerosis Thoracic aorta elongated with calcific atherosclerotic plaque The right vertebral artery is very small but patent. Some atherosclerosis within the origin of the left vertebral artery but it is patent as high as imaged. Atherosclerosis within both carotid bulbs.. No aneurysms, stenoses, dissections, nor occlusions. Mediastinal and hilar adenopathy. Body wall edema. No pulmonary emboli. Visualized portions of the upper abdomen are without identified acute pathology. CT/Chest WITH Contrast IMPRESSION: No pulmonary embolism, aortic aneurysm, or aortic dissection. Cardiomegaly, atherosclerosis, interstitial pulmonary edema, basilar atelectasis, tiny pleural effusions, body wall edema all suggest CHF. Mediastinal adenopathy of unknown source. No definitive pneumonia or neoplasia within the chest. No pneumothorax, no acute fractures. Individualized dose optimization techniques were used for this CT. at 2324 Reported and signed by: Jonel Mane MD Electronically Signed: Jonel Mane MD at 23:22 EST Tel , Service support ,
--- NOTE | 2020-10-14 21:25 | CT_ITS ---
HISTORY: polytrauma TECHNIQUE: Helically acquired images were obtained of the cervical spine without contrast. 2D reformatted images were reviewed. A radiation dose optimization technique was used for this scan. COMPARISON: Of the patient's 34 previous radiologic exams in this institution, no previous imaging of the cervical spine FINDINGS: # of images incl. paperwork: 425 Vertebral body height is fairly well-preserved. There is a focal anterior subluxation of C6 on C7 by 4 mm Degenerative arthritic disease at the odontoid C1 articulation with osteophytes sclerosis and loss of joint space. Degenerative malalignment is present. Disc degenerative malalignment is due to degenerative disc disease. Degenerative disc disease is greatest at theC4-C5 and C5-C6 levels. This disease is manifested by loss of disc height, endplate sclerosis, and anterior and posterior enthesophytes. Facets are well aligned with arthropathy. Calcific plaque within the carotid bulbs. Prevertebral and paraspinal soft tissues are normal. No bones are fractured. Visualized portions of the mastoid air cells are free of disease. CT/Spine Cervical without Contras IMPRESSION: Multilevel degenerative disc disease without acute fracture or traumatic subluxation. Individualized dose optimization techniques were used for this CT. at 2332 Reported and signed by: Jonel Mane MD Electronically Signed: Jonel Mane MD at 23:31 EST Tel , Service support ,
[2020-10-14 21:57] LABS: Mucous, Urine 0 SEEN /hpf (<or=2+); Red Blood Cells-Urine 0 SEEN /hpf (0-5); White Blood Cells 0 SEEN /hpf (0-5)
[2020-10-14 21:58] LABS: Color, Urine Yellow (Yellow); Glucose, Dipstick Normal (Normal); Ketone-Dipstick Negative (Negative); Leukocyte Esterase-Dipstick Negative /ul (Negative); Nitrite-Dipstick Negative (Negative); Occult Blood-Urine Negative /ul (Negative); Protein-Dipstick 15 mg/dl (Negative); Urine Bilirubin Dipstick Negative (Negative); Urine Clarity Sl. Cloudy (Clear); Urine Urobilinogen 1 mg/dl (Normal)
[2020-10-14 22:02] LABS: Absolute Lymphocyte Count 0.54 X10^3/uL (0.83-4.51); Absolute Neutrophil Count 13.5 X10^3/uL (2.0-7.7); Basophil# 0.03 X10^3/uL; Basophil% 0.2 % (0-1); Eosinophil# 0.04 X10^3/uL; Eosinophils% 0.3 % (0-5); Hematocrit 35.4 % (37-47); Hemoglobin 11.4 g/dL (12.0-15.0); Lymphocyte # 0.54 X10^3/ul (4.0); Lymphocyte % 3.6 % (19-41); Mean Corp Hgb Conc 32.2 g/dL (32-36); Mean Corpuscular Hgb 32.3 pg (27.0-32.0); Mean Corpuscular Volume 100.3 fL (81-99); Monocyte# 0.73 X10^3/uL; Monocyte% 4.9 % (0-10); NRBC Flagged by Analyzer 0 % (0-5); Neutrophil # 13.48 X10^3/uL (2.7-7.7); Neutrophil % 90.5 % (47-70); POSITIVE COUNT YES; POSITIVE DIFFERENTIAL YES; Platelet Count 84 K/mm3 (150-450); RBC Distribution Width CV 16.3 % (11.6-14.6); RBC Distribution Width SD 59.8 fl (35.1-43.9); Red Blood Count 3.53 M/mm3 (4.2-5.4); White Blood Count 14.9 K/mm3 (4.4-11.0)
[2020-10-14 22:07] LABS: Amorphous Sediment 1+; Bacteria 1+ /hpf (None Seen); Squamous Epithelial Cells - UA 0-5 SEEN /hpf (5-10)
[2020-10-14 22:10] LABS: Differential Indicated SCAN CRITERIA MET
[2020-10-14 22:13] LABS: International Normalized Ratio 1.1
[2020-10-14 22:14] LABS: Partial Thromboplast Time 29.2 Seconds (24.1-36.2)
[2020-10-14 22:18] LABS: ALB/GLOB Ratio 1.2 RATIO (0.9-2.4); AST(SGOT) 19 U/L (15-37); Alanine Aminotransfer ALT/SGPT 24 U/L (13-56); Albumin, Serum 3.5 g/dL (3.2-5.0); Alkaline Phosphatase 69 U/L (45-117); Anion Gap 5 (5-15); BUN 19 mg/dL (7-18); BUN/Creat Ratio 24.5 RATIO (10-20); Calcium,Total 8.8 mg/dL (8.5-10.1); Chloride 106 mmol/L (98-107); Creatinine, Serum 0.78 mg/dL (0.55-1.02); EST Glomerular Filtration Rate 75 mL/min (>60); Est Glom Filt Rate - Afr Amer 91 mL/min (>60); Estimated Creatinine Clearance 32.53 ml/min; Glucose 137 mg/dL (74-106); Protein, Total 6.5 g/dL (6.4-8.2); Sodium Level 141 mmol/L (136-145)
--- NOTE | 2020-10-14 22:20 | RAD_ITS ---
HISTORY: Fracture. AP pelvis and 2 views left hip. Comparison study is an abdominal x-ray from January 07, 2019. Findings: Acute left subcapital femoral neck fracture. There is cranial migration of the distal femur. Varus angulation. The left femoral head is well-seated within the left acetabulum. Calcific plaque within the superficial femoral artery. Degenerative disc disease. Sacroiliac joint arthritis. RAD/HIP, UNI W/ Pelvis 2-3 Views IMPRESSION: Acute left subcapital femoral neck fracture with overriding fracture fragments, and varus angulation. at 2245 Reported and signed by: Jonel Mane MD Electronically Signed: Jonel Mane MD at 22:44 EST Tel , Service support ,
[2020-10-14 22:27] LABS: Anisocytosis 1+; Macrocytosis 1+; Platelet Estimate MOD DEC (ADEQ); Platelet Morphology LARGE; Red Cell Morphology N CHROM NORMAL (NORM C&C)
--- NOTE | 2020-10-14 22:58 | ED.DCSUM_ITS ---
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 She had evidence of head injury and had some pain in the left hip. Outpatient x-rays were obtained which demonstrated a femoral neck fracture. Patient is not on any blood thinners. She is not a reliable historian. Patient is currently denying any pain. And has a pacemaker due to complete AV block. She has a history of mitral and aortic stenosis. 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 Perez Lives: Alf Smoking Status: Never smoker Alcohol: None Drugs: None - Family History Maternal Family History: Reports: - - Her mother choked to in a restaurant but had no significan chronic medical illnesses. Paternal Family History: Reports: - - her father at 89 YOA of old AGE Sibling Family History: Reports: No pertinent history, - - she had a siser who at 12 YOA with a copper storage disease Review of Systems General: Denies: Chills, Fever, Sweats Eyes: Denies: Visual changes - bilaterally, Diplopia ENT: Denies: Rhinorrhea, Sore throat Cardiovascular: Denies: Chest pain, Palpitations Respiratory: Denies: Dyspnea, Cough, Dyspnea on exertion Gastrointestinal: Denies: Abdominal pain, Nausea, Vomiting, Diarrhea, Melena, Hematochezia Genitourinary: Denies: Dysuria, Hematuria, Frequency Musculoskeletal: Denies: Back pain, Extremity Pain Skin: Reports: Wounds. Denies: Rash Neurological: Denies: Headache, Weakness, Numbness Physical Exam Vital Signs/Narrative: Vital Signs Temp Pulse Resp BP Pulse Ox 10/14/20 21:04 98.7 F 66 19 H 152/56 H 86 Inital Vital Signs reviewed: Yes General: Well nourished, Well developed, No Acute Distress Head: Normocephalic, Trauma - There is forehead and facial ecchymosis and a superficial abrasion. Eyes: Perrl, EOMI ENT: Moist mucous membranes, No rhinorrhea Neck: Supple, Nontender Cardiovascular: Regular rate, Regular rhythm, Murmur Respiratory: No distress, CTA bilaterally, Chest nontender Abdomen: Soft, Nontender, Nondistended, Normal bowel sounds Back: Nontender, Normal Inspection Extremities: No edema, Tenderness - Tender palpation of the left hip shortening positive logroll Skin: Normal color, No rash Neurological: Alert, Cranial nerves II-XII grossly intact, Normal Strength, Normal Sensation. Negative for: Oriented x3 - Orientated x2 Psychological: Normal affect, Normal Mood Diagnostic/Tx/Re-eval Laboratory Last Values WBC 14.9 K/mm3 (4.4-11.0) H 10/14/20 21:40 RBC 3.53 M/mm3 (4.2-5.4) L 10/14/20 21:40 Hgb 11.4 g/dL (12.0-15.0) L 10/14/20 21:40 Hct 35.4 % (37-47) L 10/14/20 21:40 MCV 100.3 fL (81-99) H 10/14/20 21:40 MCH 32.3 pg (27.0-32.0) H 10/14/20 21:40 MCHC 32.2 g/dL (32-36) 10/14/20 21:40 RDW Std Deviation 59.8 fl (35.1-43.9) H 10/14/20 21:40 RDW Coeff of Kelly 16.3 % (11.6-14.6) H 10/14/20 21:40 Plt Count 84 K/mm3 (150-450) L 10/14/20 21:40 MPV TNP 10/14/20 21:40 Immature Gran % (Auto) 0.500 % (0.0-0.9) 10/14/20 21:40 Neut % (Auto) 90.5 % (47-70) H 10/14/20 21:40 Lymph % (Auto) 3.6 % (19-41) L 10/14/20 21:40 [place] % (Auto) 4.9 % (0-10) 10/14/20 21:40 Eos % (Auto) 0.3 % (0-5) 10/14/20 21:40 Baso % (Auto) 0.2 % (0-1) 10/14/20 21:40 Absolute Neuts (auto) 13.5 X10^3/uL (2.0-7.7) H 10/14/20 21:40 Absolute Lymphs (auto) 0.54 X10^3/uL (0.83-4.51) L 10/14/20 21:40 Nucleated RBC % 0 % (0-5) 10/14/20 21:40 Differential Comment SEE COMMENT 10/14/20 21:40 Platelet Estimate MOD DEC (ADEQ) 10/14/20 21:40 Plt Morphology Comment LARGE 10/14/20 21:40 RBC Morphology N CHROM NORMAL (NORM C&C) 10/14/20 21:40 Anisocytosis 1+ 10/14/20 21:40 Macrocytosis 1+ 10/14/20 21:40 PT 14.0 SECONDS (11.7-14.9) 10/14/20 21:40 INR 1.1 10/14/20 21:40 APTT 29.2 Seconds (24.1-36.2) 10/14/20 21:40 Sodium 141 mmol/L (136-145) 10/14/20 21:40 Potassium 4.0 mmol/L (3.5-5.1) 10/14/20 21:40 Chloride 106 mmol/L (98-107) 10/14/20 21:40 Carbon Dioxide 30.0 mmol/L (21.0-32.0) 10/14/20 21:40 Anion Gap 5 (5-15) 10/14/20 21:40 BUN 19 mg/dL (7-18) H 10/14/20 21:40 Creatinine 0.78 mg/dL (0.55-1.02) 10/14/20 21:40 Estim Creat Clear Calc 32.53 ml/min 10/14/20 21:40 Est GFR (MDRD) Af Amer 91 mL/min (>60) 10/14/20 21:40 Est GFR (MDRD) Non-Af 75 mL/min (>60) 10/14/20 21:40 BUN/Creatinine Ratio 24.5 RATIO (10-20) H 10/14/20 21:40 Glucose 137 mg/dL (74-106) H 10/14/20 21:40 Calcium 8.8 mg/dL (8.5-10.1) 10/14/20 21:40 Total Bilirubin 1.10 mg/dL (0.20-1.00) H 10/14/20 21:40 AST 19 U/L (15-37) 10/14/20 21:40 ALT 24 U/L (13-56) 10/14/20 21:40 Alkaline Phosphatase 69 U/L (45-117) 10/14/20 21:40 Total Protein 6.5 g/dL (6.4-8.2) 10/14/20 21:40 Albumin 3.5 g/dL (3.2-5.0) 10/14/20 21:40 Globulin 3.0 g/dL (2.2-4.2) 10/14/20 21:40 Albumin/Globulin Ratio 1.2 RATIO (0.9-2.4) 10/14/20 21:40 Urine Color Yellow (Yellow) 10/14/20 21:46 Urine Clarity Sl. Cloudy (Clear) 10/14/20 21:46 Urine pH 7.0 (5.0 - 8.0) 10/14/20 21:46 Ur Specific [place] 1.010 (1.002-1.030) 10/14/20 21:46 Urine Protein 15 mg/dl (Negative) H 10/14/20 21:46 Urine Glucose (UA) Normal mg/dl (Normal) 10/14/20 21:46 Urine Ketones Negative mg/dl (Negative) 10/14/20 21:46 Urine Occult Blood Negative /ul (Negative) 10/14/20 21:46 Urine Nitrite Negative (Negative) 10/14/20 21:46 Urine Bilirubin Negative mg/dL (Negative) 10/14/20 21:46 Urine Urobilinogen 1 mg/dl (Normal) H 10/14/20 21:46 Ur Leukocyte Esterase Negative /ul (Negative) 10/14/20 21:46 Urine RBC 0 SEEN /hpf (0-5) 03 21:46 Urine WBC 0 SEEN /hpf (0-5) 03 21:46 Ur Squamous Epith Cells 0-5 SEEN /hpf (5-10) 10/14/20 21:46 Amorphous Sediment 1+ 10/14/20 21:46 Urine Bacteria 1+ /hpf (None Seen) 10/14/20 21:46 Urine Mucus 0 SEEN /hpf (<or=2+) 10/14/20 21:46 - EKG Initial EKG Interpretation: Sinus Rhythm - EKG demonstrates a sinus rhythm with a first- degree AV block at a rate of 65. - Medical Decision Making My interpretation of the plain films of the left hip and pelvis is acute fracture of the left femoral neck with displacement. CT the head and neck were negative for intracranial hemorrhage or fracture. CT of the chest is consistent with congestive heart failure. Nursing informed me that they had seen some oxygen saturations into the high 80s and placed on supplemental oxygen. I gave her additional Lasix given the chest CT findings. Case was discussed with on-call orthopedics Dr. Burdick and hospitalist Dr. Cohen. ED Disposition - Plan for ED Patient: Diagnosis: Hip fracture, left, CHF (congestive heart failure) Referrals: Johnny Harkins MD [Primary Care Provider] -
[2020-10-14 23:02] VITALS: BP 151/56; PULSE 67; RESP 18; O2SAT 93
[2020-10-14] MEDS: Furosemide 100 MG/10 ML Vial 60 MG IV (23:35)
--- NOTE | 2020-10-14 23:48 | HP.PCM_ITS ---
Problem List (1) Hip fracture, left Status: Acute (2) CHF (congestive heart failure) Status: Acute Qualifiers: Heart failure type: diastolic Heart failure chronicity: acute on chronic Qualified Code(s): I50.33 - Acute on chronic diastolic (congestive) heart failure (3) Anemia Status: Acute (4) Presence of permanent cardiac pacemaker Status: Chronic Comment: Dual chamber pacemaker implant 10/19 (5) Nonrheumatic mitral valve stenosis with insufficiency Status: Chronic (6) Nonrheumatic aortic (valve) stenosis Status: Chronic (7) Bilateral carotid bruits Status: Chronic (8) Essential hypertension Status: Chronic (9) Atherosclerotic heart disease of [place] coronary artery without angina pectoris Status: Chronic Qualifiers: [place] vs. transplanted heart: [place] heart Qualified Code(s): I25.10 - Atherosclerotic heart disease of [place] coronary artery without angina pectoris Comment: Mild per cath 2011 (10) Syncope and collapse Status: Acute (11) Dizziness and giddiness Status: Acute (12) Palpitations Status: Chronic (13) Cerebrovascular accident Status: Chronic (14) Acute myocardial infarction Status: Chronic (15) Supraventricular tachycardia Status: Chronic (16) Atrioventricular block, complete Status: Chronic (17) Hyperlipidemia Status: Chronic Qualifiers: Hyperlipidemia type: unspecified Qualified Code(s): E78.5 - Hyperlipidemia, unspecified (18) LVH (left ventricular hypertrophy) Status: Chronic (19) Pulmonary HTN Status: Chronic History of Present Illness Date of Admission: 10/15/20 Chief Complaint: Fall with left hip fracture. The patient is a 85 year old F with multiple comorbidities as listed above including heart failure, valvular heart disease, chronic iron deficiency anemia was sent to ER from [facility] after she had fall. As per alf record, she had unwitnessed fall with bruise over left forehead and left hip. As per EMS vitals, she was also found hypoxic 86% on room air but no tachypnea, fever or hypotension. patient is confused, disoriented to time, place and person and probably has dementia. Complete history and review of systems unobtainable. She denies pain over the left hip. No chest pain or pressure, shortness of breath, dizziness. She denies abdominal pain, burning micturition. She had Mott inserted in ED. Left hip and pelvis x-ray shows acute left subcapital femur neck fracture with displacement and varus angulation. Twelve-lead EKG shows normal sinus rhythm at 65 beats per 1, first-degree AV block. As per alf documentation seems patient is full code but needs to be addressed with the family. [] Past Medical History Past Medical History (Chronic Problems): Chronic Problems (Last Reviewed 04/18/20 @ 14:21 by Alisia Mccullough) Presence of permanent cardiac pacemaker (Chronic) Dual chamber pacemaker implant 10/19 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) Nonrheumatic aortic (valve) stenosis (Chronic) Bilateral carotid bruits (Chronic) Essential hypertension (Chronic) Atherosclerotic heart disease of [place] coronary artery without angina pectoris (Chronic) Mild per cath 2012 Palpitations (Chronic) Cerebrovascular accident (Chronic) Acute myocardial infarction (Chronic) Supraventricular tachycardia (Chronic) Atrioventricular block, complete (Chronic) Hyperlipidemia (Chronic) LVH (left ventricular hypertrophy) (Chronic) Pulmonary HTN (Chronic) Medical History: Medical History (Last Reviewed 04/18/20 @ 14:21 by Alisia Mccullough) Anemia (Acute) D64.9 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) I34.2, I34.0 Nonrheumatic aortic (valve) stenosis (Chronic) I35.0 Bilateral carotid bruits (Chronic) R09.89 Essential hypertension (Chronic) I10 Atherosclerotic heart disease of [place] coronary artery without angina pectoris (Chronic) I25.10 Mild per cath 2012 Palpitations (Chronic) R00.2 Cerebrovascular accident (Chronic) I63.9 Acute myocardial infarction (Chronic) I21.9 Supraventricular tachycardia (Chronic) I47.1 Atrioventricular block, complete (Chronic) I44.2 Hyperlipidemia (Chronic) E78.5 LVH (left ventricular hypertrophy) (Chronic) I51.7 Pulmonary HTN (Chronic) I27.2 Iron deficiency anemia due to chronic blood loss (Inactive) D50.0 Allergies buspirone [From BuSpar] Allergy (Unknown, Verified 10/14/20 21:02) Unknown cimetidine [From Tagamet] Allergy (Unknown, Verified 10/14/20 21:02) unknown Home Medications: Ambulatory Orders Medication Instructions Recorded lisinopril 5 mg tablet 5 mg PO BID #90 tab 07/27/18 metoprolol tartrate 50 mg tablet 50 mg PO BID #180 tab 11/29/19 Cholecalciferol (Vitamin D3) 2,000 unit PO DAILY 03/27/20 [Vitamin D3] Escitalopram Oxalate 20 mg PO DAILY 03/27/20 Polyethylene Glycol 3350 [Miralax] 17 gm PO DAILY 03/27/20 simvastatin 40 mg tablet 40 mg PO QHS #90 tab 04/07/20 ferrous sulfate 325 mg (65 mg 325 mg PO DAILY 04/18/20 iron) tablet omeprazole 20 mg tablet,delayed 20 mg PO BID 04/18/20 release Amlodipine [Norvasc] 5 mg PO DAILY 10/14/20 Loperamide 2 mg PO DAILY PRN 10/14/20 Vit A/Vit C/Vit E/Zinc/Copper 1 ea PO DAILY 10/14/20 [Preservision Areds Softgel] Surgical History: Surgical History (Last Reviewed 04/18/20 @ 14:21 by Alisia Mccullough) Presence of permanent cardiac pacemaker (Chronic) Z95.0 Dual chamber pacemaker implant 10/19 History of left heart catheterization (LHC) Onset Date: ~07/27/12 Z98.890 Mild CAD Surgical History: cataract - bilateral, cholecystectomy, hysterectomy - with oophorectomy for fibroids, pacemaker implantation - October of [address] Perez Psychiatric History: No pertinent psych hx [employer] History: uterine fibroids - has had FREYA with BSO Lives: Group Home Smoking Status: Never smoker Tobacco Use: Non-smoker Alcohol: None Drugs: None - *Family History Maternal History Items: - - Her mother choked to in a restaurant but had no significan chronic medical illnesses. Paternal History Items: - - her father at 89 YOA of old AGE Sibling History Items: No pertinent history, - - she had a siser who at 12 YOA with a copper storage disease Review of Systems Constitutional: Denies: Chills, Fever HEENT: Reports: Difficulty Hearing Neurological: Reports: Balance problems, Incoordination Psychiatric: Reports: Anxiety Hematologic/ Lymphatic: Reports: Easy Bruising Unable to obtain accurate/complete ROS d/t: Confusion, disorientation, dementia VTE Information - Inpt Only VTE Present on Admission: No VTE Mechan Device Prophylaxis: None VTE Pharm Prophylaxis ordered?: Yes Patient Problems: Active and Suspected Problems (Last Reviewed 04/18/20 @ 14:21 by Alisia Mccullough) Hip fracture, left (Acute) CHF (congestive heart failure) (Acute) Anemia (Acute) Syncope and collapse (Acute) Dizziness and giddiness (Acute) Objective: General: Alert, awake but disoriented to time, place, person and circumstances. HEENT: Mild bruise over left forehead. PERRLA, EOMI, Normocephalic Oral: Oral mucosa dry. No Gingival or Mucosal Lesions/ Ulcerations Neck: Supple, No JVD, Negative Carotid Bruits Lungs: Air entry diminished in bilateral lung bases. Mild bilateral lung bases inspiratory rhonchi. Cardiovascular: Regular rate, Regular Rhythm, Normal S1, Normal S2, ejection systolic murmur over right second ICS, pansystolic murmur over LLSB and cardiac apex Abdomen: Bowel Sounds Present, Soft, Non Tender, Non-Distended : No renal angle tenderness. No suprapubic tenderness. Extremities: No ankle edema, Capillary Refill Less than 3 Seconds Skin: Bruise over left forehead. Musculoskeletal: No residual tenderness over left hip joint, lateral. LLE externally rotated. Arthritis of bilateral wrist and finger joints. Neurological: Cranial nerves II-XII grossly intact, Deep Tendon Reflexes 2+/4 and Symmetrical, Neuro grossly intact Psych/Mental Status: Disoriented, dementia - Physical Exam Vitals/I&O's: Vital Signs Temp Pulse Resp BP Pulse Ox 98.7 F 67 18 151/56 H 93 10/14/20 21:04 10/14/20 23:02 10/14/20 23:02 10/14/20 23:02 10/14/20 23:02 Oxygen Flow Rate (L/min) 2 Oxygen Delivery Method Nasal Cannula Weight: 133 lb 9.602 oz Body Mass Index (BMI) 24.4 Laboratory Results 10/14/20 21:40: WBC 14.9 H, RBC 3.53 L, Hgb 11.4 L, Hct 35.4 L, MCV 100.3 H, MCH 32.3 H, MCHC 32.2, RDW Std Deviation 59.8 H, RDW Coeff of Kelly 16.3 H, Plt Count 84 L, MPV TNP, Immature Gran % (Auto) 0.500, Neut % (Auto) 90.5 H, Lymph % (Auto) 3.6 L, [place] % (Auto) 4.9, Eos % (Auto) 0.3, Baso % (Auto) 0.2, Absolute Neuts (auto) 13.5 H, Absolute Lymphs (auto) 0.54 L, Nucleated RBC % 0, Differential Comment SEE COMMENT, Platelet Estimate MOD DEC, Plt Morphology Comment LARGE, RBC Morphology N CHROM, Anisocytosis 1+, Macrocytosis 1+ 10/14/20 21:40: PT 14.0, INR 1.1, APTT 29.2 10/14/20 21:40: Sodium 141, Potassium 4.0, Chloride 106, Carbon Dioxide 30.0, Anion Gap 5, BUN 19 H, Creatinine 0.78, Estim Creat Clear Calc 32.53, Est GFR (MDRD) Af Amer 91, Est GFR (MDRD) Non-Af 75, BUN/Creatinine Ratio 24.5 H, Glucos e 137 H, Calcium 8.8, Total Bilirubin 1.10 H, AST 19, ALT 24, Alkaline Phosphatase 69, Total Protein 6.5, Albumin 3.5, Globulin 3.0, Albumin/Globulin Ratio 1.2 10/14/20 21:40: B-Natriuretic Peptide Pending 10/14/20 21:46: Urine Color Yellow, Urine Clarity Sl. Cloudy, Urine pH 7.0, Ur Specific [place] 1.010, Urine Protein 15 H, Urine Glucose (UA) Normal, Urine Ketones Negative, Urine Occult Blood Negative, Urine Nitrite Negative, Urine Bilirubin Negative, Urine Urobilinogen 1 H, Ur Leukocyte Esterase Negative, Urine RBC 0 SEEN, Urine WBC 0 SEEN, Ur Squamous Epith Cells 0-5 SEEN, Amorphous Sediment 1+, Urine Bacteria 1+, Urine Mucus 0 SEEN Assessment/Plan All Active Problems (Last Reviewed 04/18/20 @ 14:21 by Alisia Mccullough) Hip fracture, left (Acute) CHF (congestive heart failure) (Acute) Anemia (Acute) Syncope and collapse (Acute) Dizziness and giddiness (Acute) Cancer of skin of back (Resolved) history of ischemic stroke (Resolved) This 35-year-old female, alf resident is being admitted through ER after fall and left femoral neck displaced and angulated subcapital hip fracture. 1. Left subcapital femoral neck fracture with displacement and varus angulation, pathological due to osteoporosis after a trivial fall: Patient is being admitted in PCU as she has significant history of valvular heart disease and heart failure. Pain control. PT and OT ordered. Dr. Burdick is been consulted from ER physician. NSQIP perioperative surgical risk calculated. She has 25% risk for serious complication, 27.4% of any complication, 3.6% of pneumonia, 3.7% cardiac complication, 2.3% VTE, 15.2% for readmission. Will consult cardiology. Repeat 2D echo. Patient had Lasix 60 mg IV 1 dose in the ER. We will continue Lasix 40 mg IV daily from tomorrow and titrate as per fluid status. 2. Acute on chronic diastolic heart failure/HFpEF: As per previous echo in April 2019, EF 65%, moderate to severe MS, mild MR, moderate aortic stenosis, RVSP 36 mmHg and no evidence of diastolic dysfunction. Patient on amlodipine, metoprolol, simvastatin and lisinopril continued. BNP 327. Troponin ordered. 2D echo in April 2019 Left ventricular systolic function is normal. The estimated ejection fraction is 65 %. The left atrium is moderately enlarged. There is severe mitral annular calcification. Extension of the mitral annular calcification onto the mitral valve leaflets. Moderate to severe mitral valve stenosis. Mild (1+) mitral valve insufficiency. Trivial tricuspid valve insufficiency. Moderate aortic stenosis. Trivial pulmonic valve insufficiency. Right ventricular systolic pressure estimated to be 36 mmHg. There is evidence of diastolic dysfunction. ICD or pacer leads identified within the right atrium ICD or pacer leads identified within the right ventricle. 3. Valvular heart disease: Moderate to severe MS, moderate aortic stenosis, mild MR: As mentioned above 4. Chronic iron deficiency anemia: H&H 11.4/35. Platelet count 84,000. Mild leukocytosis probably inflammatory. 5. History of mild coronary artery disease, complete heart block status post permanent cardiac pacemaker, hypertension, CVA, dyslipidemia and pulmonary hypertension: Multiple comorbidities complicates the present care and expect difficult and delay recovery after surgery. VTE prophylaxis: Lovenox 30 mg 1 dose and then evaluate prior to surgery. As per alf documentation, patient is full code. Patient will need further address of CODE STATUS, goal of life care to be addressed with the family member. Inpatient E&M: [id number] Init Hosp L3
[2020-10-15] VITALS (22 sets, daily range): BP systolic 105–144; BP diastolic 49–76; PULSE 60–71; RESP 14–18; TEMP 36.3–37.1; O2SAT 95–100; BMI 22.8; BMI 22.7
[2020-10-15] LABS: BNP,B-Type NATRIURETIC PEPTIDE 327.1 pg/mL (0-100)
--- NOTE | 2020-10-15 00:28 | ED.RN ---
son jag notified pt was admitted to pcu for fx hip
--- NOTE | 2020-10-15 00:29 | ED.RN ---
milli notified pt is admitted . called to ene
[2020-10-15] MEDS: Enoxaparin 30 MG/0.3 ML Syringe SC (01:31)
[2020-10-15 02:53] LABS: Magnesium 1.7 mg/dL (1.6-2.6)
[2020-10-15 05:29] LABS: Absolute Lymphocyte Count 0.68 X10^3/uL (0.83-4.51); Absolute Neutrophil Count 10.3 X10^3/uL (2.0-7.7); Basophil# 0.03 X10^3/uL; Basophil% 0.3 % (0-1); Eosinophil# 0.05 X10^3/uL; Eosinophils% 0.4 % (0-5); Hematocrit 37.2 % (37-47); Lymphocyte # 0.68 X10^3/ul (4.0); Lymphocyte % 5.7 % (19-41); Mean Corp Hgb Conc 32.3 g/dL (32-36); Mean Corpuscular Hgb 32.4 pg (27.0-32.0); Mean Corpuscular Volume 100.5 fL (81-99); Monocyte% 6.7 % (0-10); NRBC Flagged by Analyzer 0 % (0-5); Neutrophil # 10.31 X10^3/uL (2.7-7.7); Neutrophil % 86.6 % (47-70); POSITIVE COUNT YES; POSITIVE MORPHOLOGY YES; Platelet Count 87 K/mm3 (150-450); RBC Distribution Width CV 16.2 % (11.6-14.6); RBC Distribution Width SD 59.8 fl (35.1-43.9); White Blood Count 11.9 K/mm3 (4.4-11.0)
[2020-10-15 05:31] LABS: Differential Indicated SCAN CRITERIA MET
[2020-10-15 05:54] LABS: Anion Gap 7 (5-15); BUN 18 mg/dL (7-18); BUN/Creat Ratio 24.9 RATIO (10-20); Chloride 101 mmol/L (98-107); Creatinine, Serum 0.72 mg/dL (0.55-1.02); EST Glomerular Filtration Rate 81 mL/min (>60); Est Glom Filt Rate - Afr Amer 99 mL/min (>60); Estimated Creatinine Clearance 32.53 ml/min; Glucose 143 mg/dL (74-106); Potassium 3.3 mmol/L (3.5-5.1); Sodium Level 140 mmol/L (136-145); Thyroid Stim Hormone (TSH) 1.78 uIU/mL (0.358-3.74)
--- NOTE | 2020-10-15 05:55 | ECHOD_ITS ---
Reason For Study: CHF Procedure This was a 2D Doppler, Color Flow transthoracic echocardiogram. The exam was of adequate technical quality. Exam performed portable in patient room. Left Ventricle Normal LV size. Left ventricular systolic function is normal. The estimated ejection fraction is 60 %. There is evidence of diastolic dysfunction. No regional wall motion abnormalities noted. Right Ventricle Normal RV size. ICD or pacer leads identified within the right ventricle. Normal systolic function. Atria The left atrium is severely enlarged. Normal right atrium. ICD or pacer leads identified within the right atrium. No doppler evidence for ASD. Mitral Valve There is severe mitral annular calcification. Extension of the mitral annular calcification onto the posterior mitral valve leaflets with subsequent notation of diffuse thickening and restriction of the mitral valve leaflets. Severe mitral valve stenosis. Trivial mitral valve insufficiency. Tricuspid Valve Normal tricuspid valve. Trivial tricuspid valve insufficiency. Right ventricular systolic pressure estimated to be 34 mmHg. Aortic Valve Severe focal aortic valve thickening. Severe focal aortic valve calcification. Severe aortic stenosis. Trivial aortic valve insufficiency. Pulmonic Valve The pulmonic valve is not well visualized. Trivial pulmonic valve insufficiency. Great Vessels Normal sized aortic root. Calcified aortic root. Pericardium/Pleural No pericardial effusion. MMode/2D Measurements & Calculations LVIDd: 4.0 cm IVSd: 1.2 cm LVOT diam: 1.9 cm LVIDs: 1.7 cm LVPWd: 1.1 cm LVOT area: 2.7 cm2 RVDd: 2.8 cm FS: 56.0 % Ao root diam: 2.3 cm LAV(MOD-bp): 86.9 ml LA A4 area: 24.8 cm2 LAV(MOD-bp) Indexed: 55.7 ml/m2 LAV(MOD-sp2): 79.2 ml LAV(MOD-sp4): 85.2 ml LA dimension(2D): 3.9 cm RA A4 area: 12.0 cm2 Time Measurements MV dec time: 0.53 sec Doppler Measurements & Calculations MV E max fransico: 187.7 cm/sec Lat Peak E' Fransico: 2.7 cm/sec Med Peak E' Fransico: 2.1 cm/sec MV A max fransico: 194.8 cm/sec E/E' lat: 69.2 E/E' med: 88.1 MV E/A: 0.96 MV V2 max: 231.6 cm/sec MV P1/2t max fransico: 211.9 cm/sec Ao V2 max: 343.2 cm/sec MV max P.5 mmHg MV P1/2t: 155.6 msec Ao max P.1 mmHg MV V2 mean: 156.0 cm/sec MV dec slope: 398.8 cm/sec2 Ao V2 mean: 251.4 cm/sec MV mean P.4 mmHg Ao mean P.6 mmHg MV V2 VTI: 92.2 cm MVA(P1/2t): 1.4 cm2 Ao V2 VTI: 76.4 cm MVA(VTI): 0.72 cm2 JOMAR(I,D): 0.87 cm2 JOMAR(V,D): 0.85 cm2 LV V1 max: 106.0 cm/sec SV(LVOT): 66.4 ml PA V2 max: 107.9 cm/sec LV V1 max P.5 mmHg LV V1 mean P.5 mmHg LV V1 mean: 75.1 cm/sec LV V1 VTI: 24.2 cm TR max fransico: 277.8 cm/sec TR max P.9 mmHg Interpretation Summary Left ventricular systolic function is normal. The estimated ejection fraction is 60 %. The left atrium is severely enlarged. There is severe mitral annular calcification. Extension of the mitral annular calcification onto the posterior mitral valve leaflets with subsequent notation of diffuse thickening and restriction of the mitral valve leaflets. Severe mitral valve stenosis. Trivial mitral valve insufficiency. Trivial tricuspid valve insufficiency. Severe aortic stenosis. Trivial aortic valve insufficiency. Trivial pulmonic valve insufficiency. Calcified aortic root. Right ventricular systolic pressure estimated to be 34 mmHg. There is evidence of diastolic dysfunction. ICD or pacer leads identified within the right atrium ICD or pacer leads identified within the right ventricle. Ordering Physician: Alex Cohen Referring Physician: Johnny Harkins Performed By: Maritza Wick RDCS, RVT
[2020-10-15] MEDS: Potassium Chloride Oral Tablet 20 MEQ 40 MEQ PO ×2 (06:37→08:51)
--- NOTE | 2020-10-15 07:48 | CON.PCM_ITS ---
Reason for Consult Date of Consultation: 10/15/20 Reason for Consultation: left femoral neck fracture displaced History of Present Illness: The patient is a 85 year old F who is an ambulator status post ground-level fall. Stained left displaced femoral neck fracture she is thrombocytopenic. Currently denies any pain in bed. Past Medical History Past Medical History (Chronic Problems): Chronic Problems (Last Reviewed 04/18/20 @ 14:21 by Alisia Mccullough) Presence of permanent cardiac pacemaker (Chronic) Dual chamber pacemaker implant 10/19 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) Nonrheumatic aortic (valve) stenosis (Chronic) Bilateral carotid bruits (Chronic) Essential hypertension (Chronic) Atherosclerotic heart disease of [place] coronary artery without angina pectoris (Chronic) Mild per cath 2011 Palpitations (Chronic) Cerebrovascular accident (Chronic) Acute myocardial infarction (Chronic) Supraventricular tachycardia (Chronic) Atrioventricular block, complete (Chronic) Hyperlipidemia (Chronic) LVH (left ventricular hypertrophy) (Chronic) Pulmonary HTN (Chronic) Medical History: Medical History (Last Reviewed 04/18/20 @ 14:21 by Alisia Mccullough) Anemia (Acute) D64.9 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) I34.2, I34.0 Nonrheumatic aortic (valve) stenosis (Chronic) I35.0 Bilateral carotid bruits (Chronic) R09.89 Essential hypertension (Chronic) I10 Atherosclerotic heart disease of [place] coronary artery without angina pectoris (Chronic) I25.10 Mild per cath 2012 Palpitations (Chronic) R00.2 Cerebrovascular accident (Chronic) I63.9 Acute myocardial infarction (Chronic) I21.9 Supraventricular tachycardia (Chronic) I47.1 Atrioventricular block, complete (Chronic) I44.2 Hyperlipidemia (Chronic) E78.5 LVH (left ventricular hypertrophy) (Chronic) I51.7 Pulmonary HTN (Chronic) I27.2 Iron deficiency anemia due to chronic blood loss (Inactive) D50.0 Allergies buspirone [From BuSpar] Allergy (Unknown, Verified 10/14/20 21:02) Unknown cimetidine [From Tagamet] Allergy (Unknown, Verified 10/14/20 21:02) unknown Home Medications: Ambulatory Orders Medication Instructions Recorded lisinopril 5 mg tablet 5 mg PO BID #90 tab 07/27/18 metoprolol tartrate 50 mg tablet 50 mg PO BID #180 tab 11/29/19 Cholecalciferol (Vitamin D3) 2,000 unit PO DAILY 03/27/20 [Vitamin D3] Escitalopram Oxalate 20 mg PO DAILY 03/27/20 Polyethylene Glycol 3350 [Miralax] 17 gm PO DAILY 03/27/20 simvastatin 40 mg tablet 40 mg PO QHS #90 tab 04/07/20 ferrous sulfate 325 mg (65 mg 325 mg PO DAILY 04/18/20 iron) tablet omeprazole 20 mg tablet,delayed 20 mg PO BID 04/18/20 release Amlodipine [Norvasc] 5 mg PO DAILY 10/14/20 Loperamide 2 mg PO DAILY PRN 10/14/20 Vit A/Vit C/Vit E/Zinc/Copper 1 ea PO DAILY 10/14/20 [Preservision Areds Softgel] Surgical History: Surgical History (Last Reviewed 04/18/20 @ 14:21 by Alisia Mccullough) Presence of permanent cardiac pacemaker (Chronic) Z95.0 Dual chamber pacemaker implant 10/19 History of left heart catheterization (LHC) Onset Date: ~07/27/12 Z98.890 Mild CAD Surgical History: cataract - bilateral, cholecystectomy, hysterectomy - with oophorectomy for fibroids, pacemaker implantation - October of [address] Perez Psychiatric History: No pertinent psych hx [employer] History: uterine fibroids - has had FREYA with BSO Lives: Prison Smoking Status: Never smoker Tobacco Use: Non-smoker Alcohol: None Drugs: None - *Family History Maternal History Items: - - Her mother choked to in a restaurant but had no significan chronic medical illnesses. Paternal History Items: - - her father at 89 YOA of old AGE Sibling History Items: No pertinent history, - - she had a siser who at 12 YOA with a copper storage disease Patient Problems: Active and Suspected Problems (Last Reviewed 04/18/20 @ 14:21 by Alisia Mccullough) Hip fracture, left (Acute) CHF (congestive heart failure) (Acute) Anemia (Acute) Syncope and collapse (Acute) Dizziness and giddiness (Acute) - Physical Exam Vitals/I&O's: Vital Signs Temp Pulse Resp BP Pulse Ox 98.2 F 61 16 136/52 H 99 10/15/20 05:13 10/15/20 05:13 10/15/20 05:13 10/15/20 05:13 10/15/20 05:13 Oxygen Flow Rate (L/min) 2 Oxygen Delivery Method Nasal Cannula Weight: 123 lb 7.342 oz Body Mass Index (BMI) 22.8 Intake and Output for Last 24 Hours 10/13/20 10/14/20 10/15/20 23:59 23:59 23:59 Intake Total 120 / 120 Output Total 1400 / 1400 Balance -1280 / -1280 General: No apparent distress, Confused Extremities: Tenderness - No open wounds compartments soft palpable pedal pulses able to extend flec toes no joint effusion around knee nontender throughout the rest of the lower extremity Laboratory Results 10/14/20 21:40: WBC 14.9 H, RBC 3.53 L, Hgb 11.4 L, Hct 35.4 L, MCV 100.3 H, MCH 32.3 H, MCHC 32.2, RDW Std Deviation 59.8 H, RDW Coeff of Kelly 16.3 H, Plt Count 84 L, MPV TNP, Immature Gran % (Auto) 0.500, Neut % (Auto) 90.5 H, Lymph % (Auto) 3.6 L, Potter % (Auto) 4.9, Eos % (Auto) 0.3, Baso % (Auto) 0.2, Absolute Neuts (auto) 13.5 H, Absolute Lymphs (auto) 0.54 L, Nucleated RBC % 0, Differential Comment SEE COMMENT, Platelet Estimate MOD DEC, Plt Morphology Comment LARGE, RBC Morphology N CHROM, Anisocytosis 1+, Macrocytosis 1+ 10/14/20 21:40: PT 14.0, INR 1.1, APTT 29.2 10/14/20 21:40: Sodium 141, Potassium 4.0, Chloride 106, Carbon Dioxide 30.0, Anion Gap 5, BUN 19 H, Creatinine 0.78, Estim Creat Clear Calc 32.53, Est GFR (MDRD) Af Amer 91, Est GFR (MDRD) Non-Af 75, BUN/Creatinine Ratio 24.5 H, Glucose 137 H, Calcium 8.8, Total Bilirubin 1.10 H, AST 19, ALT 24, Alkaline Phosphatase 69, Total Protein 6.5, Albumin 3.5, Globulin 3.0, Albumin/Globulin Ratio 1.2 10/14/20 21:40: B-Natriuretic Peptide 327.1 H 10/14/20 21:46: Urine Color Yellow, Urine Clarity Sl. Cloudy, Urine pH 7.0, Ur Specific Franklin 1.010, Urine Protein 15 H, Urine Glucose (UA) Normal, Urine Ketones Negative, Urine Occult Blood Negative, Urine Nitrite Negative, Urine Bilirubin Negative, Urine Urobilinogen 1 H, Ur Leukocyte Esterase Negative, Urine RBC 0 SEEN, Urine WBC 0 SEEN, Ur Squamous Epith Cells 0-5 SEEN, Amorphous Sediment 1+, Urine Bacteria 1+, Urine Mucus 0 SEEN 10/15/20 02:20: Magnesium 1.7, Troponin I < 0.015 10/15/20 05:20: WBC 11.9 H, RBC 3.70 L, Hgb 12.0, Hct 37.2, MCV 100.5 H, MCH 32.4 H, MCHC 32.3, RDW Std Deviation 59.8 H, RDW Coeff of Kelly 16.2 H, Plt Count 87 L, Immature Gran % (Auto) 0.300, Neut % (Auto) 86.6 H, Lymph % (Auto) 5.7 L, Potter % (Auto) 6.7, Eos % (Auto) 0.4, Baso % (Auto) 0.3, Absolute Neuts (auto) 10.3 H, Absolute Lymphs (auto) 0.68 L, Nucleated RBC % 0 10/15/20 05:20: Sodium 140, Potassium 3.3 L, Chloride 101, Carbon Dioxide 32.0, Anion Gap 7, BUN 18, Creatinine 0.72, Estim Creat Clear Calc 32.53, Est GFR (MDRD) Af Amer 99, Est GFR (MDRD) Non-Af 81, BUN/Creatinine Ratio 24.9 H, Glucose 143 H, Calcium 9.0, TSH 1.78 10/15/20 05:20: Troponin I < 0.015 Current Medications Acetaminophen (Acetaminophen 325 Mg Tablet) 650 mg PO Q6H PRN PRN PRN Reason: Pain Score 1-10/Temp > 100.7 F Albuterol Sulfate (Albuterol 2.5 Mg/3 Ml Vial.Neb.) 2.5 mg INHALATION Q2H PRN PRN PRN Reason: SOB/Wheezing Amlodipine Besylate (Amlodipine 5 Mg Tablet) 5 mg PO DAILY AMOS Atorvastatin Calcium (Atorvastatin Calcium 40 Mg Tablet) 40 mg PO QHS [facility] Cholecalciferol (Cholecalciferol (Vit D3) 1,000 Unit (25mcg)) 2,000 unit PO DAILY [facility] Ferrous Sulfate (Ferrous Sulfate 325 Mg Tablet) 325 mg PO DAILYCM [facility] Furosemide (Furosemide 40 Mg/4 Ml Vial) 40 mg IV DAILY [facility] Sodium Chloride () 250 mls @ 15 mls/hr IV .[id number] PRN PRN Reason: Saline Flush Sodium Chloride () 250 mls @ 15 mls/hr IV .[id number] PRN PRN Reason: Additional IVPB Infusion Cefazolin Sodium 2 gm/ Sodium (Chloride) 110 mls @ 150 mls/hr IV X1 ONE Stop: 10/15/20 08:43 Lisinopril (Lisinopril 5 Mg Tablet) 5 mg PO BID [facility] Loperamide HCl (Loperamide 2 Mg Capsule) 2 mg PO DAILY PRN PRN PRN Reason: Diarrhea Metoprolol Tartrate (Metoprolol Tartrate 50 Mg Tablet) 50 mg PO BID [facility] Morphine Sulfate (Morphine 2 Mg/Ml Syringe) 2 mg IV Q3H PRN PRN PRN Reason: Pain Score 6-10 Nitroglycerin (Nitroglycerin (Inpatient Use) 0.4 Mg Tab.Subl) 0.4 mg SL Q5M PRN PRN Reason: CARDIAC/CHEST PAIN Nutritional Formula (Lactose Free) (Ensure Enlive 120 Ml Liquid) 120 ml PO 4X/DAY [facility] Last Admin: 10/15/20 07:43 Dose: Not Given Documented by: Oxycodone HCl (Oxycodone 5 Mg Tablet) 5 mg PO Q4H PRN PRN PRN Reason: Pain Score 4-5 Pantoprazole Sodium (Pantoprazole Sodium 20 Mg Tablet) 20 mg PO BID [facility] Polyethylene Glycol (Polyethylene Glycol 3350 17 Gm Packet) 17 gm PO DAILY [facility] Potassium Chloride (Potassium Chloride Oral Tablet 20 Meq) 40 meq PO Q3H [facility] Stop: 10/15/20 09:31 Last Admin: 10/15/20 06:37 Dose: 40 meq Documented by: Senna/Docusate Sodium (Senna/Docusate Sodium 1 Tablet) 2 tablet PO BID PRN PRN PRN Reason: Constipation Sodium Chloride (0.9% Saline Lock 10 Ml Syringe) 10 - 40 ml IV UD PRN PRN Reason: SALINE FLUSH Assessment/Plan All Active Problems (Last Reviewed 04/18/20 @ 14:21 by Alisia Mccullough) Hip fracture, left (Acute) CHF (congestive heart failure) (Acute) Anemia (Acute) Syncope and collapse (Acute) Dizziness and giddiness (Acute) Cancer of skin of back (Resolved) history of ischemic stroke (Resolved) displaced left femoral neck fracture Thrombocytopenia please hold any further anticoagulation NPO for surgery, malka FIERRO Local with son and daughter about surgery however the son that is the POA is on route to hospital will consent with him Awaiting medical cardio clearance for possible surgery 2:00 PM today. planning cemented left hip hemiarthroplasty.
[2020-10-15] MEDS: Furosemide 40 MG/4 ML Vial IV (08:52)
[2020-10-15] MEDS: amLODIPine 5 MG Tablet PO (08:52)
[2020-10-15] MEDS: Polyethylene Glycol 3350 17 GM PACKET PO (08:52)
[2020-10-15] MEDS: Lisinopril 5 MG Tablet PO (08:52)
[2020-10-15] MEDS: Metoprolol Tartrate 50 MG Tablet PO ×2 (08:53→21:27)
[2020-10-15] MEDS: Pantoprazole Sodium 20 MG Tablet PO ×2 (08:54→21:27)
[2020-10-15] MEDS: Ferrous Sulfate 325 MG Tablet PO (08:54)
--- NOTE | 2020-10-15 09:00 | CASEMGMT ---
Addendum entered by Deidre Agosto 10/15/20 10:07: SW met with patient, introduced self and role at [facility]. SW mentioned d/c planning. He said he spoke with the physician and he suggested the two units. SW offered a list of local nursing homes and he declined stating he would like her to stay here at [facility] for rehab. ESSENCE did talk with Emily and she will put patient's name on the TCU and Rehab lists. Plan: [facility] 4th floor rehab or TCU Deidre WINSTON Original Note: Patient is from [facility]. Physician spoke with patient's son about plan of care. He then discussed d/c plan relaying that patient will need to go to a SNF when discharged. Patient's son would like [facility] 4th floor rehab unit or [facility] TCU. SW will talk with family when they arrive to verify plan. Deidre GR
[2020-10-15] MEDS: 0.9% Saline Lock 10 ML Syringe IV (09:05)
--- NOTE | 2020-10-15 10:28 | CON.PCM_ITS ---
Problem List (1) Nonrheumatic aortic (valve) stenosis Status: Chronic (2) Nonrheumatic mitral valve stenosis with insufficiency Status: Chronic (3) Presence of permanent cardiac pacemaker Status: Chronic Comment: Dual chamber pacemaker implant 10/19 (4) CHF (congestive heart failure) Status: Acute Qualifiers: Heart failure type: diastolic Heart failure chronicity: acute on chronic Qualified Code(s): I50.33 - Acute on chronic diastolic (congestive) heart failure (5) Atherosclerotic heart disease of [place] coronary artery without angina pectoris Status: Chronic Qualifiers: [place] vs. transplanted heart: saxman heart Qualified Code(s): I25.10 - Atherosclerotic heart disease of [place] coronary artery without angina pectoris Comment: Mild per cath 2011 (6) Hyperlipidemia Status: Chronic Qualifiers: Hyperlipidemia type: unspecified Qualified Code(s): E78.5 - Hyperlipidemia, unspecified (7) Essential hypertension Status: Chronic (8) Hip fracture, left Status: Acute Reason for Consult Date of Consultation: 10/15/20 History of Present Illness: The patient is a 85 year [id number] white female who has been residing in an extended care facility who is now status post mechanical fall and left hip fracture who is been requested to have preoperative cardiovascular evaluation based upon concerns of a history of underlying valvular heart disease with aortic valve stenosis and mitral valve stenosis/insufficiency, permanent pacemaker secondary to underlying cardiac dysrhythmias and conduction system disease, congestive heart failure, CAD previously considered nonhemodynamically significant, superimposed upon hyperlipidemia and hypertension. Based upon a conversation with the patient with her son present there is been no report of any ongoing concerning chest discomfort or difficulty breathing. There is been no orthopnea or PND or peripheral pitting edema. There has been no report of any syncopal events. The patient states that with her recent fall she did not lose consciousness. She was brought to the hospital for further evaluation. She was diagnosed with a left hip fracture. She has pending left hip ORIF. On cardiac athletic monitor her rhythm was sinus rhythm. Her ECG demonstrated sinus rhythm with a first-degree AV block. [] Past Medical History Allergies/Adverse Reactions: Allergies buspirone [From BuSpar] Allergy (Unknown, Verified 10/14/20 21:02) Unknown cimetidine [From Tagamet] Allergy (Unknown, Verified 10/14/20 21:02) unknown Home Medications: Ambulatory Orders Medication Instructions Recorded lisinopril 5 mg tablet 5 mg PO BID #90 tab 07/27/18 metoprolol tartrate 50 mg tablet 50 mg PO BID #180 tab 11/29/19 Cholecalciferol (Vitamin D3) 2,000 unit PO DAILY 03/27/20 [Vitamin D3] Escitalopram Oxalate 20 mg PO DAILY 03/27/20 Polyethylene Glycol 3350 [Miralax] 17 gm PO DAILY 03/27/20 simvastatin 40 mg tablet 40 mg PO QHS #90 tab 04/07/20 ferrous sulfate 325 mg (65 mg 325 mg PO DAILY 04/18/20 iron) tablet omeprazole 20 mg tablet,delayed 20 mg PO BID 04/18/20 release Amlodipine [Norvasc] 5 mg PO DAILY 10/14/20 Loperamide 2 mg PO DAILY PRN 10/14/20 Vit A/Vit C/Vit E/Zinc/Copper 1 ea PO DAILY 10/14/20 [Preservision Areds Softgel] Past Medical History (Chronic Problems): Chronic Problems (Last Reviewed 04/18/20 @ 14:21 by Alisia Mccullough) Presence of permanent cardiac pacemaker (Chronic) Dual chamber pacemaker implant 10/19 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) Nonrheumatic aortic (valve) stenosis (Chronic) Bilateral carotid bruits (Chronic) Essential hypertension (Chronic) 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 Perez Psychiatric History: No pertinent psych hx [employer] History: uterine fibroids - has had FREYA with BSO - *Family History Maternal History Items: - - Her mother choked to in a restaurant but had no significan chronic medical illnesses. Paternal History Items: - - her father at 89 YOA of old AGE Sibling History Items: No pertinent history, - - she had a siser who at 12 YOA with a copper storage disease Lives: Assisted Smoking Status: Never smoker Tobacco Use: Non-smoker Alcohol: None Drugs: None Review of Systems - Review of Systems General: Denies: Fever, Night Sweats, Fatigue Cardiovascular: Denies: Chest Discomfort, Shortness of Breath, Orthopnea, PND, Peripheral Edema, Palpitations, Lightheadedness, Dizziness, Near Syncope, Syncope Respiratory: Denies: Cough, Sputum Production, Hemoptysis Gastrointestinal: Denies: Hematemesis, Hematochezia, Melena Genitourinary: Denies: Dysuria, Hematuria Skin: Denies: Rash Subjectve: Is an 85-year-old white female appears to be resting comfortably at the moment in no acute distress. Objective: Vital Signs Temp Pulse Resp BP Pulse Ox 98.2 F 64 16 136/52 H 99 10/15/20 05:13 10/15/20 08:53 10/15/20 05:13 10/15/20 05:13 10/15/20 05:13 Oxygen Flow Rate (L/min) 2 Oxygen Delivery Method Nasal Cannula Weight: 123 lb 7.342 oz Body Mass Index (BMI) 22.8 Intake and Output for Last 24 Hours 10/13/20 10/14/20 10/15/20 23:59 23:59 23:59 Intake Total 120 / 120 Output Total 1400 / 1400 Balance -1280 / -1280 General: Awake, Cooperative, No Acute Distress HEENT: Normocephalic, Microcephalic, PERRL, EOMI, Sclera Non Icteric, - - Left periorbital ecchymoses Neck: Supple, Good ROM, No JVD Lungs: Clear to auscultation Cardiovascular: Regular Rhythm, Normal S1, Normal S2 Murmur Murmur: Grade 3/6, Harsh, Mid Systolic, LLSB, [place], LVOT, Sternal Notch Vascular: Radiation of Murmur to Carotid Arteries Abdomen: Bowel Sounds Present, Soft Extremities: No edema Psych/Mental Status: Dementia 10/14/20 21:40: WBC 14.9 H, RBC 3.53 L, Hgb 11.4 L, Hct 35.4 L, MCV 100.3 H, MCH 32.3 H, MCHC 32.2, Plt Count 84 L, MPV TNP, Immature Gran % (Auto) 0.500, Neut % (Auto) 90.5 H, Lymph % (Auto) 3.6 L, [place] % (Auto) 4.9, Eos % (Auto) 0.3, Baso % (Auto) 0.2, Absolute Neuts (auto) 13.5 H, Nucleated RBC % 0 10/14/20 21:40: PT 14.0, INR 1.1, APTT 29.2 10/14/20 21:40: Sodium 141, Potassium 4.0, Chloride 106, Carbon Dioxide 30.0, Anion Gap 5, BUN 19 H, Creatinine 0.78, Est GFR (MDRD) Af Amer 91, Est GFR (MDRD) Non-Af 75, BUN/Creatinine Ratio 24.5 H, Glucose 137 H, Calcium 8.8, Total Bilirubin 1.10 H 10/14/20 21:40: B-Natriuretic Peptide 327.1 H 10/14/20 21:46: Urine Color Yellow, Urine Clarity Sl. Cloudy, Urine pH 7.0, Ur Specific [place] 1.010, Urine Protein 15 H, Urine Glucose (UA) Normal, Urine Ketones Negative, Urine Occult Blood Negative, Urine Nitrite Negative, Urine Bilirubin Negative, Urine Urobilinogen 1 H, Ur Leukocyte Esterase Negative, Urine RBC 0 SEEN, Urine WBC 0 SEEN 10/15/20 02:20: Magnesium 1.7, Troponin I < 0.015 10/15/20 05:20: WBC 11.9 H, RBC 3.70 L, Hgb 12.0, Hct 37.2, MCV 100.5 H, MCH 32.4 H, MCHC 32.3, Plt Count 87 L, Immature Gran % (Auto) 0.300, Neut % (Auto) 86.6 H, Lymph % (Auto) 5.7 L, [place] % (Auto) 6.7, Eos % (Auto) 0.4, Baso % (Auto) 0.3, Absolute Neuts (auto) 10.3 H, Nucleated RBC % 0 10/15/20 05:20: Sodium 140, Potassium 3.3 L, Chloride 101, Carbon Dioxide 32.0, Anion Gap 7, BUN 18, Creatinine 0.72, Est GFR (MDRD) Af Amer 99, Est GFR (MDRD) Non-Af 81, BUN/Creatinine Ratio 24.9 H, Glucose 143 H, Calcium 9.0 10/15/20 05:20: Troponin I < 0.015 10/15/20 08:00: Troponin I < 0.015 Rhythm: Sinus rhythm EKG: As noted above ECHO: 03-07-2019 Interpretation Summary The study was technically difficult. Left ventricular systolic function is normal. The estimated ejection fraction is 65 %. The left atrium is moderately enlarged. There is severe mitral annular calcification. Extension of the mitral annular calcification onto the mitral valve leaflets. Moderate to severe mitral valve stenosis. Mild (1+) mitral valve insufficiency. Trivial tricuspid valve insufficiency. Moderate aortic stenosis. Trivial pulmonic valve insufficiency. Right ventricular systolic pressure estimated to be 36 mmHg. There is evidence of diastolic dysfunction. ICD or pacer leads identified within the right atrium ICD or pacer leads identified within the right ventricle. DATE OF SERVICE: 08/29/2015 EXERCISE TOLERANCE TEST: The patient underwent pharmacologic (regadenoson) evaluation with a peak heart rate of 109 beats per minute (77% predicted maximum heart rate) and a peak blood pressure of 148/72 mmHg. The baseline ECG demonstrates an electronic ventricular-paced rhythm. The peak pharmacologic ECG demonstrates a continued electronic ventricular-paced rhythm. There were no cardiac dysrhythmias pretest, during pharmacologic infusion, and recovery. The patient had no complaint of chest discomfort during pharmacologic infusion or recovery. The examination was discontinued secondary to completion of protocol. IMPRESSION: 1. Pharmacologic (regadenoson) evaluation. 2. Peak pharmacologic ECG with continued electronic ventricular-paced rhythm with no obvious ECG changes. 3. Nuclear images pending. MYOCARDIAL PERFUSION IMAGING STUDY: TECHNIQUE: The patient was injected with 11.3 mCi of Tc99m Cardiolite and subsequently rest SPECT Cardiolite nuclear imaging was obtained in the horizontal long, vertical long and short axes views. The patient underwent pharmacologic (regadenoson) evaluation with a peak heart rate of 109 beats per minute (77% predicted maximum heart rate) and a peak blood pressure of 148/72 mmHg. The patient was injected with 33.1 mCi of Tc99m Cardiolite and subsequently stress SPECT Cardiolite nuclear imaging was obtained in the horizontal long, vertical long and short axes views. A gated Cardiolite study at peak stress was obtained. INTERPRETATION: Rest and stress SPECT Cardiolite nuclear imaging, status post realignment and normalization, demonstrate areas of extracardiac/hepatic and gastrointestinal tracer uptake near the inferior segments. Otherwise, there appears to be relative uniform tracer uptake and myocardial perfusion appearing within normal limits. There is notation of end systolic thickening and brightening. The gated Cardiolite study demonstrates my ocardial thickening and inward wall motion. The reported LVEF is 80%. IMPRESSION: 1. Rest and stress SPECT Cardiolite nuclear imaging demonstrates relative uniform tracer uptake and myocardial perfusion appearing within normal limits. 2. The gated Cardiolite study reports an LVEF of 80%. Cardiac Cath: 07-27-2012: [facility] Summary: Left ventricle normal: LVEF 65% Moderate concentric LVH Mitral annular calcification: Severe CAD: Nonobstructive CAD Pacemaker check: 07-16-2020 Summary: Battery longevity approximately 2.5 years Pacemaker function: Considered appropriate CT scan: IMPRESSION: No pulmonary embolism, aortic aneurysm, or aortic dissection. Cardiomegaly, atherosclerosis, interstitial pulmonary edema, basilar atelectasis, tiny pleural effusions, body wall edema all suggest CHF. Mediastinal adenopathy of unknown source. No definitive pneumonia or neoplasia within the chest. No pneumothorax, no acute fractures. Individualized dose optimization techniques were used for this CT. at 2324 Reported and signed by: Jonel Mane MD Electronically Signed: Jonel Mane MD at 23:22 EST Assessment/Plan 1. Valvular heart disease (aortic valve stenosis and mitral valve stenosis/insufficiency) The patient does have underlying valvular heart disease. This is not a new finding for her. The present time she appears without any acute cardiovascular symptoms. She will continue to be followed by history, exam, and echocardiogram as deemed appropriate. 2. Permanent pacemaker The patient does have a permanent pacemaker. It was placed secondary to concerns of both tachy and bradycardia dysrhythmias/conduction system disease. It was interrogated in July 2020. It appeared to be functioning appropriately. 3. CHF The patient in the past has been diagnosed with concerns of CHF-preserved left ventricular ejection fraction/LVEF. At the moment she appears to be without any acute symptoms. She will continue to be followed for any concerns as deemed appropriate. 4. CAD The patient's previous noninvasive and invasive studies are noted. She has been found in the past to have nonobstructive CAD. At the present time she will continue medical management and follow-up as deemed appropriate. 6. Hyperlipidemia She should continue medical therapy as deemed appropriate. 7. Hypertension Her blood pressure should be monitored for any significant fluctuations requiring adjustment of her medications. 8. Left hip fracture She does have a left hip fracture. She is pending ORIF. From a cardiovascular standpoint it does not appear at this time that she requires cardiovascular diagnostic studies such as diagnostic cardiac catheterization or cardiovascular intervention prior to her upcoming left hip ORIF. She should have close monitoring of her cardiac rate, rhythm, and blood pressure during and following her procedure. An attempt should be made to avoid hypotension, especially in the setting of her valvular heart disease, during and following her procedure. Also an attempt should be made to avoid excess IV volume overload based upon her underlying valvular heart disease during and following her surgery. Following her surgery she should be followed with laboratory studies such as H&H to monitor for any significant anemia that would require PRBC transfusions to maintain oxygen carrying capacity. Based upon her cardiovascular history she is at an increased risk for adverse cardiovascular events from noncardiac surgery. However without any ongoing acute cardiovascular symptoms/findings and the patient appearing to be symptomatically hemodynamically stable at this time hopefully with close monitoring these risks can be kept at a minimum. The patient's case was discussed and reviewed with the patient, her son who was present at the time, and Dr. Duran. This note was generated using a voice recognition system and there may be incorrect words, spelling or punctuation that were not noted when reviewing the office note prior to saving.
--- NOTE | 2020-10-15 12:47 | NURSING ---
OR tech Caridad at bedside to take patient down to OR taken on 2L NC via bed at 1245
[2020-10-15] MEDS: Cefazolin 2 GM in 0.9% Normal Saline 100 ML IV (14:03)
--- NOTE | 2020-10-15 15:12 | PCM.PROGNOTE ---
Patient Problems: Active and Suspected Problems (Last Reviewed 04/18/20 @ 14:21 by Alisia Mccullough) Hip fracture, left (Acute) CHF (congestive heart failure) (Acute) Anemia (Acute) Syncope and collapse (Acute) Dizziness and giddiness (Acute) Subjective: Patient was seen and examined today, she was due to go to surgery today for repair of a left subcapital femoral neck fracture. I talked with orthopedic surgery today as well as the son and cardiology. Cardiology has cleared the patient for surgery at this time. Patient's medical problems include mitral stenosis, mild atherosclerotic heart disease, mild pulmonary hypertension, hyperlipidemia, chronic diastolic congestive heart failure, and cognitive impairment-she has not been diagnosed with dementia. - Physical Exam Vitals/I&O's: Vital Signs Temp Pulse Resp BP Pulse Ox 97.4 F L 61 16 130/51 H 99 10/15/20 10:54 10/15/20 11:36 10/15/20 10:54 10/15/20 10:54 10/15/20 10:54 Oxygen Flow Rate (L/min) 2 Oxygen Delivery Method Nasal Cannula Weight: 56 kg Body Mass Index (BMI) 22.7 Intake and Output for Last 24 Hours 10/13/20 10/14/20 10/15/20 23:59 23:59 23:59 Intake Total 170 / 170 Output Total 2099 / 2099 Balance -1929 / -1929 General: Alert, Cooperative, No apparent distress, Well developed, Well nourished, Confused HEENT: Atraumatic, PERRLA, EOMI, Normocephalic Neck: Supple, No JVD, - - Bilateral carotid bruits are noted which may be transmitted from the patient's precardiac area Lungs: Clear to auscultation, Normal air movement, No rhonchi, No wheeze Cardiovascular: Regular rate, Regular Rhythm, Normal S1, Normal S2, Murmur - There is a 2/6 systolic murmur noted at the left sternal border and apex Abdomen: Bowel Sounds Present, Soft, Non Tender, Non-Distended Extremities: No clubbing, No cyanosis, Capillary Refill Less than 3 Seconds Skin: No rashes, No breakdown Neurological: Cranial nerves II-XII grossly intact, Motor Exam 5/5 strength throughout Psych/Mental Status: - - Patient alert, she exhibits mild confusion Microbiology Past 72 Hours 10/15/20 09:30 Mucosa - Nose SARS-CoV-2 Antigen (Rapid) - Final Laboratory Results 10/14/20 21:40: WBC 14.9 H, RBC 3.53 L, Hgb 11.4 L, Hct 35.4 L, MCV 100.3 H, MCH 32.3 H, MCHC 32.2, RDW Std Deviation 59.8 H, RDW Coeff of [place] 16.3 H, Plt Count 84 L, MPV TNP, Immature Gran % (Auto) 0.500, Neut % (Auto) 90.5 H, Lymph % (Auto) 3.6 L, [place] % (Auto) 4.9, Eos % (Auto) 0.3, Baso % (Auto) 0.2, Absolute Neuts (auto) 13.5 H, Absolute Lymphs (auto) 0.54 L, Nucleated RBC % 0, Differential Comment SEE COMMENT, Platelet Estimate MOD DEC, Plt Morphology Comment LARGE, RBC Morphology N CHROM, Anisocytosis 1+, Macrocytosis 1+ 10/14/20 21:40: PT 14.0, INR 1.1, APTT 29.2 10/14/20 21:40: Sodium 141, Potassium 4.0, Chloride 106, Carbon Dioxide 30.0, Anion Gap 5, BUN 19 H, Creatinine 0.78, Estim Creat Clear Calc 32.53, Est GFR (MDRD) Af Amer 91, Est GFR (MDRD) Non-Af 75, BUN/Creatinine Ratio 24.5 H, Glucose 137 H, Calcium 8.8, Total Bilirubin 1.10 H, AST 19, ALT 24, Alkaline Phosphatase 69, Total Protein 6.5, Albumin 3.5, Globulin 3.0, Albumin/Globulin Ratio 1.2 10/14/20 21:40: B-Natriuretic Peptide 327.1 H 10/14/20 21:46: Urine Color Yellow, Urine Clarity Sl. Cloudy, Urine pH 7.0, Ur Specific [place] 1.010, Urine Protein 15 H, Urine Glucose (UA) Normal, Urine Ketones Negative, Urine Occult Blood Negative, Urine Nitrite Negative, Urine Bilirubin Negative, Urine Urobilinogen 1 H, Ur Leukocyte Esterase Negative, Urine RBC 0 SEEN, Urine WBC 0 SEEN, Ur Squamous Epith Cells 0-5 SEEN, Amorphous Sediment 1+, Urine Bacteria 1+, Urine Mucus 0 SEEN 10/15/20 02:20: Magnesium 1.7, Troponin I < 0.015 10/15/20 05:20: WBC 11.9 H, RBC 3.70 L, Hgb 12.0, Hct 37.2, MCV 100.5 H, MCH 32.4 H, MCHC 32.3, RDW Std Deviation 59.8 H, RDW Coeff of [place] 16.2 H, Plt Count 87 L, Immature Gran % (Auto) 0.300, Neut % (Auto) 86.6 H, Lymph % (Auto) 5.7 L, [place] % (Auto) 6.7, Eos % (Auto) 0.4, Baso % (Auto) 0.3, Absolute Neuts (auto) 10.3 H, Absolute Lymphs (auto) 0.68 L, Nucleated RBC % 0 10/15/20 05:20: Sodium 140, Potassium 3.3 L, Chloride 101, Carbon Dioxide 32.0, Anion Gap 7, BUN 18, Creatinine 0.72, Estim Creat Clear Calc 32.53, Est GFR (MDRD) Af Amer 99, Est GFR (MDRD) Non-Af 81, BUN/Creatinine Ratio 24.9 H, Glucose 143 H, Calcium 9.0, TSH 1.78 10/15/20 05:20: Troponin I < 0.015 10/15/20 08:00: Troponin I < 0.015 Current Medications Acetaminophen (Acetaminophen 325 Mg Tablet) 650 mg PO Q6H PRN PRN PRN Reason: Pain Score 1-10/Temp > 100.7 F Albuterol Sulfate (Albuterol 2.5 Mg/3 Ml Vial.Neb.) 2.5 mg INHALATION Q2H PRN PRN PRN Reason: SOB/Wheezing Amlodipine Besylate (Amlodipine 5 Mg Tablet) 5 mg PO DAILY [facility] Last Admin: 10/15/20 08:52 Dose: 5 mg Documented by: Atorvastatin Calcium (Atorvastatin Calcium 40 Mg Tablet) 40 mg PO QHS [facility] Cholecalciferol (Cholecalciferol (Vit D3) 1,000 Unit (25mcg)) 2,000 unit PO DAILY [facility] Last Admin: 10/15/20 08:53 Dose: 2,000 unit Documented by: Ferrous Sulfate (Ferrous Sulfate 325 Mg Tablet) [facility] Last Admin: 10/15/20 08:54 Dose: 325 mg Documented by: Furosemide (Furosemide 40 Mg/4 Ml Vial) 40 mg IV DAILY [facility] Last Admin: 10/15/20 08:52 Dose: 40 mg Documented by: Sodium Chloride () 250 mls @ 15 mls/hr IV .[id number] PRN PRN Reason: Saline Flush Sodium Chloride () 250 mls @ 15 mls/hr IV .[id number] PRN PRN Reason: Additional IVPB Infusion Lisinopril (Lisinopril 5 Mg Tablet) 5 mg PO BID [facility] Last Admin: 10/15/20 08:52 Dose: 5 mg Documented by: Loperamide HCl (Loperamide 2 Mg Capsule) 2 mg PO DAILY PRN PRN PRN Reason: Diarrhea Metoprolol Tartrate (Metoprolol Tartrate 50 Mg Tablet) 50 mg PO BID [facility] Last Admin: 10/15/20 08:53 Dose: 50 mg Documented by: Morphine Sulfate (Morphine 2 Mg/Ml Syringe) 2 mg IV Q3H PRN PRN PRN Reason: Pain Score 6-10 Nitroglycerin (Nitroglycerin (Inpatient Use) 0.4 Mg Tab.Subl) 0.4 mg SL Q5M PRN PRN Reason: CARDIAC/CHEST PAIN Nutritional Formula (Lactose Free) (Ensure Enlive 120 Ml Liquid) 120 ml PO 4X/DAY [facility] Last Admin: 10/15/20 14:24 Dose: Not Given Documented by: Oxycodone HCl (Oxycodone 5 Mg Tablet) 5 mg PO Q4H PRN PRN PRN Reason: Pain Score 4-5 Pantoprazole Sodium (Pantoprazole Sodium 20 Mg Tablet) 20 mg PO BID [facility] Last Admin: 10/15/20 08:54 Dose: 20 mg Documented by: Polyethylene Glycol (Polyethylene Glycol 3350 17 Gm Packet) 17 gm PO DAILY [facility] Last Admin: 10/15/20 08:52 Dose: 17 gm Documented by: Senna/Docusate Sodium (Senna/Docusate Sodium 1 Tablet) 2 tablet PO BID PRN PRN PRN Reason: Constipation Sodium Chloride (0.9% Saline Lock 10 Ml Syringe) 10 - 40 ml IV UD PRN PRN Reason: SALINE FLUSH Last Admin: 10/15/20 09:05 Dose: 10 ml Documented by: Medical Necessity - Tobacco Use Smoking Status: Never smoker Tobacco Use: Non-smoker Assessment/Plan All Active Problems (Last Reviewed 04/18/20 @ 14:21 by Alisia Mccullough) Hip fracture, left (Acute) CHF (congestive heart failure) (Acute) Anemia (Acute) Syncope and collapse (Acute) Dizziness and giddiness (Acute) Cancer of skin of back (Resolved) history of ischemic stroke (Resolved) #1 left subcapital femoral neck fracture secondary to osteoporosis-cardiology is cleared the patient for surgery today, I anticipate that she will go to surgery this afternoon for ORIF (probable Lui arthroplasty), PT and OT will see the patient, she will need at least short-term placement in the care home facility. She currently resides at [facility] #2 severe mitral stenosis-particular attention will be paid to fluid administration postop #3 mild coronary artery disease #4 mild pulmonary hypertension #5 essential hypertension #6 chronic diastolic congestive heart failure #7 cognitive impairment-most probably secondary to undiagnosed dementia, patient's son states that patient has periods of confusion which she describes as mild and most times appears cognitively intact. The assisted living facility confirms this. Patient was unable to confirm with me this morning that she broke her hip, initially she thought she was at [facility] now but then corrected herself to say that she was at [facility]. #8 bilateral carotid bruits-patient has a past history of this in her chart, it is unclear how extensive these are. I have not planned to order any testing on the patient at this time Inpatient E&M: 88079 Subs Hosp L2
--- NOTE | 2020-10-15 16:14 | PCM.OPRPT ---
Report of Operation Date of Procedure: 10/15/20 Description of Surgical Findings:: Preoperative diagnosis: Left hip femoral neck fracture displaced Postoperative diagnosis: Same Procedure: Left hip hemiarthroplasty Implants: [place] Accolade II stem size 3 cemented 132 degree neck angle -3 neck length 46 mm outer diameter bipolar head Anesthesia: General l EBL: 150 cc Complications: None Condition: Stable to PACU Indication for procedure: This is a 85-year-old demented female halfway patient status post ground-level fall sustaining displaced left femoral neck fracture. plans for definitive hemiarthroplasty were discussed with all 3 children including power of deputy attorney general Syed her son including risks benefits and alternatives of the procedure were reviewed with the patient including risk of bleeding infection nerve artery tissue damage need for further surgery continue pain postoperative hip precaution restrictions leg length discrepancy and dislocation. Procedure: Patient was met in the preoperative holding area once again the operative extremity was identified by both patient and physician and was marked. Patient was met by anesthesia and brought to the operating room where anesthesia was started . The patient was then positioned in the lateral decubitus position on a well-padded pegboard with an axillary roll. All bony prominences were checked and padded. The patient was prepped and draped in the usual sterile fashion. A timeout was called to ensure the proper patient procedure and extremity were being contemplated. Anatomic landmarks were palpated and marked for a standard posterior lateral approach. A timeout was called to ensure the proper patient procedure and extremity were being contemplated. A 10 blade scalpel was used to make a posterior incision through the skin and subcutaneous tissue. In retractors were used and electrocautery was used to maintain meticulous hemostasis and dissect full-thickness flaps until the gluteal fascia was reached. The gluteal fascia was incised in line with the gluteal fibers. The bursal tissue was then freed from the underside and a Charnley retractor was placed. The fatpad was elevated off of the external rotators with electrocautery and the external rotators were dissected off of the greater trochanter including the piriformis and were tagged with #1 Ethibond for later repair. The joint capsule opened with posterior trapdoor technique. A femoral neck cutting guide was used to calista the neck with a Bovie and an oscillating saw was used to complete the femoral neck cut. the fracture was visualized and with the use of a corkscrew and a skid the femoral head was removed and sized. We then trialed with the matching sizes . Hohmann was placed around the lesser trochanter. A femoral elevator was used. As well as a pointed wide Hohmann around the lesser trochanter and a Hohmann to help retract the gluteus medius. A box chisel was used to remove excess lateral neck followed by a canal finder and a lateralizing reamer. This was followed by sequential broaches. Attention was made of the version within the canal. Once the final broach was seated we then trialed and reduced the hip it was determined that a 132 degree neck angle with a -3 neck length was the appropriate size. We then checked stability with shuck testing as well as flexion and interminal rotation then proceeded with hip extension and checked leg lengths at the knees and heels. At this point trials were removed. The femoral stem was cemented after a cement restrictor was placed. Pressurization techniques were used and stem was held into place until cement has hardened excess cement was removed with curettes. we re-trialed and then proceeded to impact the femoral head onto the Sebastián taper. We then surgically reduce the hip check stability again and leg lengths and were satisfied. irricept rinse was allowed to sit for 1 minutes while everyone changed their gloves. Thorough irrigation was performed. Followed by closure of the external rotators with #2 FiberWire followed by closure of gluteal fascia with #1 Ethibond. 0 Vicryl fat stitches and 2-0 Vicryl subcutaneous stitches and sandi in the skin. Dressing was applied in the form of silverlon dressing and an abduction pillow was placed. Patient tolerated the procedure well there was no intraoperative complications all counts were correct and the patient was brought back to the PACU in stable condition
--- NOTE | 2020-10-15 16:18 | PCM.PN.ORT ---
Patient Problems: Active and Suspected Problems (Last Reviewed 04/18/20 @ 14:21 by Alisia Mccullough) Hip fracture, left (Acute) CHF (congestive heart failure) (Acute) Anemia (Acute) Syncope and collapse (Acute) Dizziness and giddiness (Acute) Subjective: Patient stable in PACU, son jag notified of procedural outcome - Physical Exam Vitals/I&O's: Vital Signs Temp Pulse Resp BP Pulse Ox 97.4 F L 61 16 130/51 H 99 10/15/20 10:54 10/15/20 11:36 10/15/20 10:54 10/15/20 10:54 10/15/20 10:54 Oxygen Flow Rate (L/min) 2 Oxygen Delivery Method Nasal Cannula Weight: 123 lb 7.342 oz Body Mass Index (BMI) 22.7 Intake and Output for Last 24 Hours 10/13/20 10/14/20 10/15/20 23:59 23:59 23:59 Intake Total 280 / 280 Output Total 2400 / 2400 Balance -2120 / -2120 General: No apparent distress Extremities: - - Leg lengths appropriate and palpable pedal pulses Microbiology Past 72 Hours 10/15/20 09:30 Mucosa - Nose SARS-CoV-2 Antigen (Rapid) - Final Laboratory Results 10/14/20 21:40: WBC 14.9 H, RBC 3.53 L, Hgb 11.4 L, Hct 35.4 L, MCV 100.3 H, MCH 32.3 H, MCHC 32.2, RDW Std Deviation 59.8 H, RDW Coeff of Kelly 16.3 H, Plt Count 84 L, MPV TNP, Immature Gran % (Auto) 0.500, Neut % (Auto) 90.5 H, Lymph % (Auto) 3.6 L, Laurel % (Auto) 4.9, Eos % (Auto) 0.3, Baso % (Auto) 0.2, Absolute Neuts (auto) 13.5 H, Absolute Lymphs (auto) 0.54 L, Nucleated RBC % 0, Differential Comment SEE COMMENT, Platelet Estimate MOD DEC, Plt Morphology Comment LARGE, RBC Morphology N CHROM, Anisocytosis 1+, Macrocytosis 1+ 10/14/20 21:40: PT 14.0, INR 1.1, APTT 29.2 10/14/20 21:40: Sodium 141, Potassium 4.0, Chloride 106, Carbon Dioxide 30.0, Anion Gap 5, BUN 19 H, Creatinine 0.78, Estim Creat Clear Calc 32.53, Est GFR (MDRD) Af Amer 91, Est GFR (MDRD) Non-Af 75, BUN/Creatinine Ratio 24.5 H, Glucose 137 H, Calcium 8.8, Total Bilirubin 1.10 H, AST 19, ALT 24, Alkaline Phosphatase 69, Total Protein 6.5, Albumin 3.5, Globulin 3.0, Albumin/Globulin Ratio 1.2 10/14/20 21:40: B-Natriuretic Peptide 327.1 H 10/14/20 21:46: Urine Color Yellow, Urine Clarity Sl. Cloudy, Urine pH 7.0, Ur Specific [place] 1.010, Urine Protein 15 H, Urine Glucose (UA) Normal, Urine Ketones Negative, Urine Occult Blood Negative, Urine Nitrite Negative, Urine Bilirubin Negative, Urine Urobilinogen 1 H, Ur Leukocyte Esterase Negative, Urine RBC 0 SEEN, Urine WBC 0 SEEN, Ur Squamous Epith Cells 0-5 SEEN, Amorphous Sediment 1+, Urine Bacteria 1+, Urine Mucus 0 SEEN 10/15/20 02:20: Magnesium 1.7, Troponin I < 0.015 10/15/20 05:20: WBC 11.9 H, RBC 3.70 L, Hgb 12.0, Hct 37.2, MCV 100.5 H, MCH 32.4 H, MCHC 32.3, RDW Std Deviation 59.8 H, RDW Coeff of Kelly 16.2 H, Plt Count 87 L, Immature Gran % (Auto) 0.300, Neut % (Auto) 86.6 H, Lymph % (Auto) 5.7 L, Laurel % (Auto) 6.7, Eos % (Auto) 0.4, Baso % (Auto) 0.3, Absolute Neuts (auto) 10.3 H, Absolute Lymphs (auto) 0.68 L, Nucleated RBC % 0 10/15/20 05:20: Sodium 140, Potassium 3.3 L, Chloride 101, Carbon Dioxide 32.0, Anion Gap 7, BUN 18, Creatinine 0.72, Estim Creat Clear Calc 32.53, Est GFR (MDRD) Af Amer 99, Est GFR (MDRD) Non-Af 81, BUN/Creatinine Ratio 24.9 H, Glucose 143 H, Calcium 9.0, TSH 1.78 10/15/20 05:20: Troponin I < 0.015 10/15/20 08:00: Troponin I < 0.015 10/15/20 15:10: Blood Type Pending, Antibody Screen Pending, Crossmatch See Detail Current Medications Acetaminophen (Acetaminophen 325 Mg Tablet) 650 mg PO Q6H PRN PRN PRN Reason: Pain Score 1-10/Temp > 100.7 F Acetaminophen (Acetaminophen 500 Mg Tablet) 1,000 mg PO Q8 [facility] Albuterol Sulfate (Albuterol 2.5 Mg/3 Ml Vial.Neb.) 2.5 mg INHALATION Q2H PRN PRN PRN Reason: SOB/Wheezing Amlodipine Besylate (Amlodipine 5 Mg Tablet) 5 mg PO DAILY [facility] Last Admin: 10/15/20 08:52 Dose: 5 mg Documented by: Atorvastatin Calcium (Atorvastatin Calcium 40 Mg Tablet) 40 mg PO QHS [facility] Cholecalciferol (Cholecalciferol (Vit D3) 1,000 Unit (25mcg)) 2,000 unit PO DAILY [facility] Last Admin: 10/15/20 08:53 Dose: 2,000 unit Documented by: Enoxaparin Sodium (Enoxaparin 40 Mg/0.4 Ml Syringe) 40 mg SC DAILY@0600 [facility] Enteral Nutritional Formula (Ensure Surgery 237 Ml Liquid) 237 ml PO TIDCM [facility] Ferrous Sulfate (Ferrous Sulfate 325 Mg Tablet) 325 mg PO DAILYCM [facility] Last Admin: 10/15/20 08:54 Dose: 325 mg Documented by: Furosemide (Furosemide 40 Mg/4 Ml Vial) 40 mg IV DAILY [facility] Last Admin: 10/15/20 08:52 Dose: 40 mg Documented by: Sodium Chloride () 250 mls @ 15 mls/hr IV .[id number] PRN PRN Reason: Saline Flush Sodium Chloride () 250 mls @ 15 mls/hr IV .[id number] PRN PRN Reason: Additional IVPB Infusion Cefazolin Sodium () 1 gm in 50 mls @ 100 mls/hr IV Q8 [facility] Lisinopril (Lisinopril 5 Mg Tablet) 5 mg PO BID [facility] Last Admin: 10/15/20 08:52 Dose: 5 mg Documented by: Loperamide HCl (Loperamide 2 Mg Capsule) 2 mg PO DAILY PRN PRN PRN Reason: Diarrhea Metoprolol Tartrate (Metoprolol Tartrate 50 Mg Tablet) 50 mg PO BID [facility] Last Admin: 10/15/20 08:53 Dose: 50 mg Documented by: Morphine Sulfate (Morphine 2 Mg/Ml Syringe) 2 mg IV Q3H PRN PRN PRN Reason: Pain Score 6-10 Nitroglycerin (Nitroglycerin (Inpatient Use) 0.4 Mg Tab.Subl) 0.4 mg SL Q5M PRN PRN Reason: CARDIAC/CHEST PAIN Nutritional Formula (Lactose Free) (Ensure Enlive 120 Ml Liquid) 120 ml PO 4X/DAY [facility] Last Admin: 10/15/20 14:24 Dose: Not Given Documented by: Oxycodone HCl (Oxycodone 5 Mg Tablet) 2.5 mg PO Q6H PRN PRN PRN Reason: Pain Score 4-10 Pantoprazole Sodium (Pantoprazole Sodium 20 Mg Tablet) 20 mg PO BID [facility] Last Admin: 10/15/20 08:54 Dose: 20 mg Documented by: Polyethylene Glycol (Polyethylene Glycol 3350 17 Gm Packet) 17 gm PO DAILY [facility] Last Admin: 10/15/20 08:52 Dose: 17 gm Documented by: Senna/Docusate Sodium (Senna/Docusate Sodium 1 Tablet) 2 tablet PO BID PRN PRN PRN Reason: Constipation Sodium Chloride (0.9% Saline Lock 10 Ml Syringe) 10 - 40 ml IV UD PRN PRN Reason: SALINE FLUSH Last Admin: 10/15/20 09:05 Dose: 10 ml Documented by: Medical Necessity - Tobacco Use Smoking Status: Never smoker Tobacco Use: Non-smoker Assessment/Plan All Active Problems (Last Reviewed 04/18/20 @ 14:21 by Alisia Mccullough) Hip fracture, left (Acute) CHF (congestive heart failure) (Acute) Anemia (Acute) Syncope and collapse (Acute) Dizziness and giddiness (Acute) Cancer of skin of back (Resolved) history of ischemic stroke (Resolved) Postop day #0 left hip hemiarthroplasty cemented DVT prophylaxis SCDs FELICITY hose and Lovenox 40 mg subcutaneous daily beginning 10/16/2020 6am PT OT weightbearing as tolerated hip precautions Abduction pillow while in bed while in hospital after may transition to pillow Dressing to remain clean dry and undisturbed for 72 hours postop unless seal is broken then may be replaced by nursing After 72 hours may shower but do not submerge in tub. Dressing should be changed daily at that point if not showering daily should have incision cleaned daily with antibacterial soap and warm water. Follow-up in office 2 weeks for wound check and staple removal
--- NOTE | 2020-10-15 16:40 | RAD_ITS ---
STUDY: X-RAY - PELVIS AND LEFT HIP REASON FOR EXAM: Female, 85 years old. Post Op -- AP both hips on single karin/lateral of op hip PACU TECHNIQUE: 2 views of the pelvis and hip. COMPARISON: None. FINDINGS: There is a non-specific bowel gas pattern. Normal visualized soft tissue structures. Normal bilateral iliac wings, sacroiliac joints and visualized sacrum. Normal bilateral superior and inferior pubic rami. Normal pubic symphysis. Normal bilateral ischial tuberosities. Left hip prosthesis noted in anatomic alignment and position. Surgical sandi are seen at the operative site. RAD/Hip Min 2 Views (Portable) IMPRESSION: Status post left hip prosthesis placement. Electronically Signed: Christopher Finley MD at 17:12 EST , Service support ,
[2020-10-15] MEDS: Cefazolin 1 GM/50 ML BAG IV (16:45)
--- NOTE | 2020-10-15 17:45 | NURSING ---
patient back from surgery at 1745 in room resting comfortably placed back on monitor on 2L [place]
[2020-10-15] MEDS: Acetaminophen 500 MG Tablet 1000 MG PO (21:27)
[2020-10-15] MEDS: Atorvastatin Calcium 40 MG Tablet PO (21:28)
[2020-10-15] MEDS: 0.9% Normal Saline 1,000 ML 50 ML IV (23:30)
[2020-10-16] VITALS (14 sets, daily range): BP systolic 90–104; BP diastolic 32–47; PULSE 66–87; RESP 12–18; TEMP 35.9–36.9; O2SAT 92–100; BMI 22.8
[2020-10-16] MEDS: Cefazolin 1 GM/50 ML BAG IV ×2 (00:34→08:33)
[2020-10-16] MEDS: Acetaminophen 500 MG Tablet 1000 MG PO ×3 (05:11→21:40)
[2020-10-16] MEDS: Enoxaparin 40 MG/0.4 ML Syringe SC (05:11)
[2020-10-16 05:20] LABS: Hematocrit 29.8 % (37-47); Hemoglobin 9.4 g/dL (12.0-15.0); Mean Corp Hgb Conc 31.5 g/dL (32-36); Mean Corpuscular Hgb 32.9 pg (27.0-32.0); Mean Corpuscular Volume 104.2 fL (81-99); POSITIVE COUNT YES; Platelet Count 90 K/mm3 (150-450); RBC Distribution Width CV 16.6 % (11.6-14.6); Red Blood Count 2.86 M/mm3 (4.2-5.4)
[2020-10-16 05:37] LABS: Anion Gap 6 (5-15); BUN 31 mg/dL (7-18); BUN/Creat Ratio 24.8 RATIO (10-20); Calcium,Total 8.3 mg/dL (8.5-10.1); Chloride 104 mmol/L (98-107); Creatinine, Serum 1.25 mg/dL (0.55-1.02); EST Glomerular Filtration Rate 43 mL/min (>60); Est Glom Filt Rate - Afr Amer 52 mL/min (>60); Estimated Creatinine Clearance 24.83 ml/min; Glucose 136 mg/dL (74-106); Potassium 4.3 mmol/L (3.5-5.1); Sodium Level 141 mmol/L (136-145)
--- NOTE | 2020-10-16 05:59 | PCM.HOSP.N ---
Hospitalist Note Patient had 1 L 100 mL urine output after midnight. Systolic blood pressure in the low 100s, baseline systolic 130s. Patient also on Lasix 40 mg IV daily. 2D echo reviewed. EF 60% with severe aortic stenosis, severe mitral valve stenosis, LA severely enlarged consistent with chronic HFpEF. Currently patient looks dehydrated after left hip surgery yesterday therefore Ringer lactate 1 L bolus and then 100 mill per hour for 1 L and then reevaluate. Lasix discontinued. Discussed with the nursing staff.
[2020-10-16] MEDS: Lactated Ringers 1,000 ML 999 ML IV (06:05)
[2020-10-16] MEDS: Lactated Ringers 1,000 ML 100 ML IV (06:07)
[2020-10-16] MEDS: Ensure Surgery 237 ML LIQUID PO ×2 (08:33→12:31)
[2020-10-16] MEDS: Ferrous Sulfate 325 MG Tablet PO (08:33)
--- NOTE | 2020-10-16 09:01 | PCM.PROGNOTE ---
Patient Problems: Active and Suspected Problems (Last Reviewed 04/18/20 @ 14:21 by Alisia Mccullough) Hip fracture, left (Acute) CHF (congestive heart failure) (Acute) Anemia (Acute) Syncope and collapse (Acute) Dizziness and giddiness (Acute) Subjective: Patient was seen and examined today, she appears comfortable, patient had low urine output throughout the night and her creatinine is elevated today, she was placed on a fluid bolus and given an IV at 100 an hour. Her Lasix was stopped at this time. Patient's hemoglobin today is 9.4. Objective: General: Patient is somnolent, she appears in no distress today HEENT: Atraumatic, PERRLA, EOMI, Normocephalic Neck: Supple, No JVD, - - Bilateral carotid bruits are noted Lungs: Clear to auscultation, Normal air movement, No rhonchi, No wheeze Cardiovascular: Regular rate, Regular Rhythm, Normal S1, Normal S2, Murmur - There is a 2/6 systolic murmur noted at the left sternal border and apex Abdomen: Bowel Sounds Present, Soft, Non Tender, Non-Distended Extremities: No clubbing, No cyanosis, Capillary Refill Less than 3 Seconds Skin: No rashes, No breakdown Neurological: Cranial nerves II-XII grossly intact Psych/Mental Status: - -Patient appears somnolent - Physical Exam Vitals/I&O's: Vital Signs Temp Pulse Resp BP Pulse Ox 97.7 F L 72 12 104/38 L 93 10/16/20 08:15 10/16/20 08:15 10/16/20 08:15 10/16/20 08:15 10/16/20 08:15 Oxygen Flow Rate (L/min) 2 Oxygen Delivery Method Room Air Weight: 62 kg Body Mass Index (BMI) 22.7 Intake and Output for Last 24 Hours 10/14/20 10/15/20 10/16/20 23:59 23:59 23:59 Intake Total 378 / 378 1375.84 / 1375.84 Output Total 2660 / 2660 100 / 100 Balance -2282 / -2282 1275.84 / 1275.84 Microbiology Past 72 Hours 10/15/20 09:30 Mucosa - Nose SARS-CoV-2 Antigen (Rapid) - Final Laboratory Results 10/15/20 15:10: Blood Type O POSITIVE, Antibody Screen NEGATIVE, Crossmatch See Detail 10/16/20 04:56: WBC 12.0 H, RBC 2.86 L, Hgb 9.4 L, Hct 29.8 L, MCV 104.2 H, MCH 32.9 H, MCHC 31.5 L, RDW Std Deviation 64.0 H, RDW Coeff of Kelly 16.6 H, Plt Count 90 L 10/16/20 04:56: Sodium 141, Potassium 4.3, Chloride 104, Carbon Dioxide 31.0, Anion Gap 6, BUN 31 H, Creatinine 1.25 H, Estim Creat Clear Calc 24.83, Est GFR (MDRD) Af Amer 52 L, Est GFR (MDRD) Non-Af 43 L, BUN/Creatinine Ratio 24.8 H, Glucose 136 H, Calcium 8.3 L Current Medications Acetaminophen (Acetaminophen 325 Mg Tablet) 650 mg PO Q6H PRN PRN PRN Reason: Pain Score 1-10/Temp > 100.7 F Acetaminophen (Acetaminophen 500 Mg Tablet) 1,000 mg PO Q8 [facility] Last Admin: 10/16/20 05:11 Dose: 1,000 mg Documented by: Albuterol Sulfate (Albuterol 2.5 Mg/3 Ml Vial.Neb.) 2.5 mg INHALATION Q2H PRN PRN PRN Reason: SOB/Wheezing Amlodipine Besylate (Amlodipine 5 Mg Tablet) 5 mg PO DAILY [facility] Last Admin: 10/15/20 08:52 Dose: 5 mg Documented by: Atorvastatin Calcium (Atorvastatin Calcium 40 Mg Tablet) 40 mg PO QHS [facility] Last Admin: 10/15/20 21:28 Dose: 40 mg Documented by: Cholecalciferol (Cholecalciferol (Vit D3) 1,000 Unit (25mcg)) 2,000 unit PO DAILY [facility] Last Admin: 10/15/20 08:53 Dose: 2,000 unit Documented by: Enoxaparin Sodium (Enoxaparin 40 Mg/0.4 Ml Syringe) 40 mg SC DAILY@0600 [facility] Last Admin: 10/16/20 05:11 Dose: 40 mg Documented by: Enteral Nutritional Formula (Ensure Surgery 237 Ml Liquid) 237 ml PO TIDCM [facility] Last Admin: 10/16/20 08:33 Dose: 237 ml Documented by: Ferrous Sulfate (Ferrous Sulfate 325 Mg Tablet) [facility] Last Admin: 10/16/20 08:33 Dose: 325 mg Documented by: Sodium Chloride () 250 mls @ 15 mls/hr IV .[id number] PRN PRN Reason: Saline Flush Last Infusion: 10/15/20 23:29 Dose: Infused Documented by: Sodium Chloride () 250 mls @ 15 mls/hr IV .[id number] PRN PRN Reason: Additional IVPB Infusion Cefazolin Sodium () 1 gm in 50 mls @ 100 mls/hr IV Q8H [facility] Stop: 10/16/20 09:29 Last Infusion: 10/16/20 08:45 Dose: 0 mls/hr Documented by: Lactated Ringer's () 1,000 mls @ 100 mls/hr IV .Q10H [facility] Stop: 10/16/20 16:59 Last Infusion: 10/16/20 07:06 Dose: 100 mls/hr Documented by: Lisinopril (Lisinopril 5 Mg Tablet) 5 mg PO BID [facility] Last Admin: 10/15/20 21:28 Dose: Not Given Documented by: Loperamide HCl (Loperamide 2 Mg Capsule) 2 mg PO DAILY PRN PRN PRN Reason: Diarrhea Metoprolol Tartrate (Metoprolol Tartrate 50 Mg Tablet) 50 mg PO BID [facility] Last Admin: 10/15/20 21:27 Dose: 50 mg Documented by: Morphine Sulfate (Morphine 2 Mg/Ml Syringe) 2 mg IV Q3H PRN PRN PRN Reason: Pain Score 6-10 Nitroglycerin (Nitroglycerin (Inpatient Use) 0.4 Mg Tab.Subl) 0.4 mg SL Q5M PRN PRN Reason: CARDIAC/CHEST PAIN Nutritional Formula (Lactose Free) (Ensure Enlive 120 Ml Liquid) 120 ml PO 4X/DAY [facility] Last Admin: 10/15/20 21:27 Dose: 120 ml Documented by: Oxycodone HCl (Oxycodone 5 Mg Tablet) 2.5 mg PO Q6H PRN PRN PRN Reason: Pain Score 4-10 Pantoprazole Sodium (Pantoprazole Sodium 20 Mg Tablet) 20 mg PO BID [facility] Last Admin: 10/15/20 21:27 Dose: 20 mg Documented by: Polyethylene Glycol (Polyethylene Glycol 3350 17 Gm Packet) 17 gm PO DAILY [facility] Last Admin: 10/15/20 08:52 Dose: 17 gm Documented by: Senna/Docusate Sodium (Senna/Docusate Sodium 1 Tablet) 2 tablet PO BID PRN PRN PRN Reason: Constipation Sodium Chloride (0.9% Saline Lock 10 Ml Syringe) 10 - 40 ml IV UD PRN PRN Reason: SALINE FLUSH Last Admin: 10/15/20 09:05 Dose: 10 ml Documented by: Medical Necessity - Tobacco Use Smoking Status: Never smoker Tobacco Use: Non-smoker Assessment/Plan All Active Problems (Last Reviewed 04/18/20 @ 14:21 by Alisia Mccullough) Hip fracture, left (Acute) CHF (congestive heart failure) (Acute) Anemia (Acute) Syncope and collapse (Acute) Dizziness and giddiness (Acute) Cancer of skin of back (Resolved) history of ischemic stroke (Resolved) #1 left subcapital femoral neck fracture secondary to osteoporosis-postop day #1 left hemiarthroplasty, continue PT and OT, patient will need at least temporary placement in pen[facility] facility at the time of discharge from the hospital #2 severe mitral stenosis-particular attention will be paid to fluid administration postop, I discussed this with cardiology and I will decrease her IV fluids to 75 cc/h. #3 mild coronary artery disease #4 mild pulmonary hypertension #5 essential hypertension #6 chronic diastolic congestive heart failure #7 cognitive impairment-most probably secondary to undiagnosed dementia, patient's son states that patient has periods of confusion which she describes as mild and most times appears cognitively intact. The assisted living facility confirms this. #8 bilateral carotid bruits-patient has a past history of this in her chart, it is unclear how extensive these are. I have not planned to order any testing on the patient at this time #9 severe aortic stenosis Inpatient E&M: 36875 Subs Hosp L2
[2020-10-16] MEDS: Lactated Ringers 1,000 ML 75 ML IV ×2 (10:17→23:42)
[2020-10-16] MEDS: Pantoprazole Sodium 20 MG Tablet PO ×2 (10:57→21:39)
[2020-10-16] MEDS: Polyethylene Glycol 3350 17 GM PACKET PO (10:57)
[2020-10-16] MEDS: Acetaminophen 325 MG Tablet 650 MG PO (11:29)
--- NOTE | 2020-10-16 11:41 | PCM.PN.ORT ---
Patient Problems: Active and Suspected Problems (Last Reviewed 04/18/20 @ 14:21 by Alisia Mccullough) Hip fracture, left (Acute) CHF (congestive heart failure) (Acute) Anemia (Acute) Syncope and collapse (Acute) Dizziness and giddiness (Acute) Subjective: PAtient states that she is doing fair today. she states that she is not having much pain and it is a lot better than yesterday. Objective: Patient is sitting upright in bed upon entering the room. She is actually taking her medications while PT is setting up to work with her. She is alert without any evidence of distress or discomfort. She is not lethargic. She has intact motor function of the knee/ankle/toes. She has soft compartments throughout the extremity and no tenderness on palpation. Incision has no signs of infection and there are no signs of DVT, seroma or hematoma at the incision site. She has intact sensation to light touch throughout the extremity. - Physical Exam Vitals/I&O's: Vital Signs Temp Pulse Resp BP Pulse Ox 97.8 F 67 12 95/47 L 92 10/16/20 10:00 10/16/20 10:00 10/16/20 10:00 10/16/20 10:00 10/16/20 10:00 Oxygen Flow Rate (L/min) 2 Oxygen Delivery Method Room Air Weight: 136 lb 10.986 oz Body Mass Index (BMI) 22.7 Intake and Output for Last 24 Hours 10/14/20 10/15/20 10/16/20 23:59 23:59 23:59 Intake Total 378 / 378 1720.84 / 1720.84 Output Total 2660 / 2660 100 / 100 Balance -2282 / -2282 1620.84 / 1620.84 General: Alert, Cooperative, No apparent distress, Well developed Extremities: No clubbing, No cyanosis, No Calf Tenderness Skin: Incision - occlusive dresing stilll in place. There is some minor blood noted on the dressing. No surrounding erythema or warmth and she has no tenderness on palpation over the incision. Musculoskeletal: No Tenderness to Palpation of Joints or Extremities Neurological: Neuro grossly intact Psych/Mental Status: Normal Affect Microbiology Past 72 Hours 10/15/20 09:30 Mucosa - Nose SARS-CoV-2 Antigen (Rapid) - Final Laboratory Results 10/15/20 15:10: Blood Type O POSITIVE, Antibody Screen NEGATIVE, Crossmatch See Detail 10/16/20 04:56: WBC 12.0 H, RBC 2.86 L, Hgb 9.4 L, Hct 29.8 L, MCV 104.2 H, MCH 32.9 H, MCHC 31.5 L, RDW Std Deviation 64.0 H, RDW Coeff of Kelly 16.6 H, Plt Count 90 L 10/16/20 04:56: Sodium 141, Potassium 4.3, Chloride 104, Carbon Dioxide 31.0, Anion Gap 6, BUN 31 H, Creatinine 1.25 H, Estim Creat Clear Calc 24.83, Est GFR (MDRD) Af Amer 52 L, Est GFR (MDRD) Non-Af 43 L, BUN/Creatinine Ratio 24.8 H, Glucose 136 H, Calcium 8.3 L Current Medications Acetaminophen (Acetaminophen 325 Mg Tablet) 650 mg PO Q6H PRN PRN PRN Reason: Pain Score 1-10/Temp > 100.7 F Last Admin: 10/16/20 11:29 Dose: 650 mg Documented by: Acetaminophen (Acetaminophen 500 Mg Tablet) 1,000 mg PO Q8 [facility] Last Admin: 10/16/20 05:11 Dose: 1,000 mg Documented by: Albuterol Sulfate (Albuterol 2.5 Mg/3 Ml Vial.Neb.) 2.5 mg INHALATION Q2H PRN PRN PRN Reason: SOB/Wheezing Amlodipine Besylate (Amlodipine 5 Mg Tablet) 5 mg PO DAILY [facility] Last Admin: 10/16/20 10:57 Dose: Not Given Documented by: Atorvastatin Calcium (Atorvastatin Calcium 40 Mg Tablet) 40 mg PO QHS [facility] Last Admin: 10/15/20 21:28 Dose: 40 mg Documented by: Cholecalciferol (Cholecalciferol (Vit D3) 1,000 Unit (25mcg)) 2,000 unit PO DAILY [facility] Last Admin: 10/16/20 10:58 Dose: 2,000 unit Documented by: Enoxaparin Sodium (Enoxaparin 40 Mg/0.4 Ml Syringe) 40 mg SC DAILY@0600 [facility] Last Admin: 10/16/20 05:11 Dose: 40 mg Documented by: Enteral Nutritional Formula (Ensure Surgery 237 Ml Liquid) 237 ml PO TIDCM [facility] Last Admin: 10/16/20 08:33 Dose: 237 ml Documented by: Ferrous Sulfate (Ferrous Sulfate 325 Mg Tablet) 325 mg PO DAILYCM [facility] Last Admin: 10/16/20 08:33 Dose: 325 mg Documented by: Sodium Chloride () 250 mls @ 15 mls/hr IV .[id number] PRN PRN Reason: Saline Flush Last Infusion: 10/15/20 23:29 Dose: Infused Documented by: Sodium Chloride () 250 mls @ 15 mls/hr IV .[id number] PRN PRN Reason: Additional IVPB Infusion Lactated Ringer's () 1,000 mls @ 75 mls/hr IV .[id number] [facility] Last Infusion: 10/16/20 10:17 Dose: 75 mls/hr Documented by: Lisinopril (Lisinopril 5 Mg Tablet) 5 mg PO BID [facility] Last Admin: 10/16/20 10:58 Dose: Not Given Documented by: Loperamide HCl (Loperamide 2 Mg Capsule) 2 mg PO DAILY PRN PRN PRN Reason: Diarrhea Metoprolol Tartrate (Metoprolol Tartrate 50 Mg Tablet) 50 mg PO BID [facility] Last Admin: 10/16/20 10:57 Dose: Not Given Documented by: Morphine Sulfate (Morphine 2 Mg/Ml Syringe) 2 mg IV Q3H PRN PRN PRN Reason: Pain Score 6-10 Nitroglycerin (Nitroglycerin (Inpatient Use) 0.4 Mg Tab.Subl) 0.4 mg SL Q5M PRN PRN Reason: CARDIAC/CHEST PAIN Nutritional Formula (Lactose Free) (Ensure Enlive 120 Ml Liquid) 120 ml PO 4X/DAY [facility] Last Admin: 10/16/20 10:56 Dose: Not Given Documented by: Oxycodone HCl (Oxycodone 5 Mg Tablet) 2.5 mg PO Q6H PRN PRN PRN Reason: Pain Score 4-10 Pantoprazole Sodium (Pantoprazole Sodium 20 Mg Tablet) 20 mg PO BID [facility] Last Admin: 10/16/20 10:57 Dose: 20 mg Documented by: Polyethylene Glycol (Polyethylene Glycol 3350 17 Gm Packet) 17 gm PO DAILY [facility] Last Admin: 10/16/20 10:57 Dose: 17 gm Documented by: Senna/Docusate Sodium (Senna/Docusate Sodium 1 Tablet) 2 tablet PO BID PRN PRN PRN Reason: Constipation Sodium Chloride (0.9% Saline Lock 10 Ml Syringe) 10 - 40 ml IV UD PRN PRN Reason: SALINE FLUSH Last Admin: 10/15/20 09:05 Dose: 10 ml Documented by: Medical Necessity - Tobacco Use Smoking Status: Never smoker Tobacco Use: Non-smoker Assessment/Plan All Active Problems (Last Reviewed 04/18/20 @ 14:21 by Alisia Mccullough) Hip fracture, left (Acute) CHF (congestive heart failure) (Acute) Anemia (Acute) Syncope and collapse (Acute) Dizziness and giddiness (Acute) Cancer of skin of back (Resolved) history of ischemic stroke (Resolved) PAtient seen today post-op day 1 from left hemiarthropathy (cemented). Patient appears to be doing well at this time. She is alert today and for the most part is able to answer questions appropriately. She has a little disorientation at the same time again is minor. She has no signs of discomfort or distress. Occlusive dressing still in place without signs of infection or acute inflammation. She has soft compartments and no signs of DVT. She is grossly neurovascularly intact. Patient should continue anticoagulation with Lovenox daily at this time. She should use SCDS and continue to use the abduction pillow while in bed here at the hospital. She should continue PT/OT and can weight bear as tolerated and transition to chair. Continue with current occlusive dressing for another 48 hours before removing (change if dressing peels up, loosens, or saturates). Will remove at 72 hours post-op and clean with soap and water and then change dressing daily after cleansing. PAtient to f/u in 2 weeks for wound check and care (staple removal).
--- NOTE | 2020-10-16 14:01 | NURSING ---
BP 96/32, PRIMARY RN MADE AWARE.
--- NOTE | 2020-10-16 14:33 | CASEMGMT ---
ESSENCE spoke with therapy and they feel patient would be better for TCU. ESSENCE called Emily and let her know this information. She will work on getting pre-cert for patient. Patient's son arrived at [facility] and he asked about the plan. ESSENCE let him know therapy feels she was more appropriate for the Transitional Care Unit. He was fine with this plan. ESSENCE told him we just have to wait on insurance to give the ok. ESSENCE told him it likely will not be today, but hopefully tomorrow. He thanked ESSENCE for the update. Deidre GR MSW
--- NOTE | 2020-10-16 16:02 | PCM.PN.CARD ---
Subjectve: The patient was evaluated earlier this day. She appeared to be resting comfortably at that time. Objective: Vital Signs Temp Pulse Resp BP Pulse Ox 97.8 F 75 12 98/39 L 94 10/16/20 16:00 10/16/20 16:00 10/16/20 16:00 10/16/20 16:00 10/16/20 16:00 Oxygen Flow Rate (L/min) 2 Oxygen Delivery Method Room Air Weight: 136 lb 10.986 oz Body Mass Index (BMI) 22.7 Intake and Output for Last 24 Hours 10/14/20 10/15/20 10/16/20 23:59 23:59 23:59 Intake Total 378 / 378 2080.84 / 2080.84 Output Total 2660 / 2660 225 / 225 Balance -2282 / -2282 1855.84 / 1855.84 General: Awake, Cooperative, No Acute Distress HEENT: Atraumatic, Normocephalic, PERRL, EOMI, Sclera Non Icteric Neck: No JVD Lungs: - - Diminished inspiratory effort Cardiovascular: Regular Rhythm, Normal S1, Dimished A2 Murmur Murmur: Grade 3/6, Harsh, Mid Systolic, LLSB, [place], LVOT, [place] Abdomen: Bowel Sounds Present, Soft Extremities: No edema Psych/Mental Status: Dementia 10/16/20 04:56: WBC 12.0 H, RBC 2.86 L, Hgb 9.4 L, Hct 29.8 L, MCV 104.2 H, MCH 32.9 H, MCHC 31.5 L, Plt Count 90 L 10/16/20 04:56: Sodium 141, Potassium 4.3, Chloride 104, Carbon Dioxide 31.0, Anion Gap 6, BUN 31 H, Creatinine 1.25 H, Est GFR (MDRD) Af Amer 52 L, Est GFR (MDRD) Non-Af 43 L, BUN/Creatinine Ratio 24.8 H, Glucose 136 H, Calcium 8.3 L Rhythm: Sinus rhythm: Electronic atrial paced rhythm Interpretation Summary Left ventricular systolic function is normal. The estimated ejection fraction is 60 %. The left atrium is severely enlarged. There is severe mitral annular calcification. Extension of the mitral annular calcification onto the posterior mitral valve leaflets with subsequent notation of diffuse thickening and restriction of the mitral valve leaflets. Severe mitral valve stenosis. Trivial mitral valve insufficiency. Trivial tricuspid valve insufficiency. Severe aortic stenosis. Trivial aortic valve insufficiency. Trivial pulmonic valve insufficiency. Calcified aortic root. Right ventricular systolic pressure estimated to be 34 mmHg. There is evidence of diastolic dysfunction. ICD or pacer leads identified within the right atrium ICD or pacer leads identified within the right ventricle. Medical Necessity - Tobacco Use Smoking Status: Never smoker Tobacco Use: Non-smoker Assessment/Plan 1. Valvular heart disease (aortic valve stenosis and mitral valve stenosis/insufficiency) The patient does have underlying valvular heart disease. This is not a new finding for her. The present time she appears without any acute cardiovascular symptoms. Her echocardiogram was performed and reviewed. She does appear to have severe aortic valve stenosis/mitral valve stenosis. 2. Permanent pacemaker The patient does have a permanent pacemaker. It was placed secondary to concerns of both tachy and bradycardia dysrhythmias/conduction system disease. It was interrogated in July 2020. It appeared to be functioning appropriately. 3. CHF The patient in the past has been diagnosed with concerns of CHF-preserved left ventricular ejection fraction/LVEF. Her IV fluid rate will be decreased. She will need to be monitored for any obvious occurrence of an acute on chronic CHF event. She may need to be receiving diuretic therapy depending upon her course. 4. CAD The patient's previous noninvasive and invasive studies are noted. She has been found in the past to have nonobstructive CAD. At the present time she will continue medical management and follow-up as deemed appropriate. 6. Hyperlipidemia She should continue medical therapy as deemed appropriate. 7. Hypertension Her blood pressure should be monitored for any significant fluctuations requiring adjustment of her medications. 8. Left hip fracture She does have a left hip fracture. He is now status post left hip ORIF. The patient's case was discussed and reviewed with the patient, her son who was present at the time, and Dr. Duran. This note was generated using a voice recognition system and there may be incorrect words, spelling or punctuation that were not noted when reviewing the office note prior to saving.
[2020-10-16] MEDS: Atorvastatin Calcium 40 MG Tablet PO (21:39)
[2020-10-16] MEDS: Metoprolol Tartrate 50 MG Tablet PO (21:39)
[2020-10-17] VITALS (20 sets, daily range): BP systolic 96–111; BP diastolic 40–78; PULSE 66–90; RESP 16–18; TEMP 36.5–37.2; O2SAT 91–100
[2020-10-17 05:02] LABS: Hematocrit 21.5 % (37-47); Hemoglobin 6.9 g/dL (12.0-15.0); Mean Corp Hgb Conc 32.1 g/dL (32-36); Mean Corpuscular Hgb 32.7 pg (27.0-32.0); Mean Corpuscular Volume 101.9 fL (81-99); POSITIVE COUNT YES; Platelet Count 59 K/mm3 (150-450); RBC Distribution Width CV 16.5 % (11.6-14.6); RBC Distribution Width SD 61.1 fl (35.1-43.9); Red Blood Count 2.11 M/mm3 (4.2-5.4); White Blood Count 8.2 K/mm3 (4.4-11.0)
[2020-10-17 05:20] LABS: Anion Gap 4 (5-15); BUN 41 mg/dL (7-18); BUN/Creat Ratio 47.2 RATIO (10-20); Calcium,Total 8.5 mg/dL (8.5-10.1); Chloride 105 mmol/L (98-107); Creatinine, Serum 0.87 mg/dL (0.55-1.02); EST Glomerular Filtration Rate 66 mL/min (>60); Est Glom Filt Rate - Afr Amer 80 mL/min (>60); Estimated Creatinine Clearance 35.67 ml/min; Glucose 111 mg/dL (74-106); Potassium 3.6 mmol/L (3.5-5.1); Sodium Level 140 mmol/L (136-145)
[2020-10-17] MEDS: Enoxaparin 40 MG/0.4 ML Syringe SC (05:31)
--- NOTE | 2020-10-17 07:37 | NURSING ---
This RN was hanging a unit of PRBCs for the pt, when the blood began to drip out of the bag. After making sure the bag was properly spiked the tubing disconnected completely and the blood gushed out onto the IV pole and floor. Lab was called and what was left of the unit was sent back down, while another one is to be prepared. EVS was called to come clean anything the nurses may have missed when cleaning initially.
[2020-10-17] MEDS: Ferrous Sulfate 325 MG Tablet PO (10:43)
[2020-10-17] MEDS: Polyethylene Glycol 3350 17 GM PACKET PO (10:43)
[2020-10-17] MEDS: Metoprolol Tartrate 50 MG Tablet PO ×2 (10:43→21:13)
[2020-10-17] MEDS: Pantoprazole Sodium 20 MG Tablet PO ×2 (10:43→21:13)
--- NOTE | 2020-10-17 12:19 | CASEMGMT ---
Addendum entered by Deidre Agosto 10/17/20 13:11: SW called patient's son and let him know patient was approved and she will go to TCU today. He plans on coming up to see her now. Plan: d/c to [facility] TCU under skilled level of care. Deidre WINSTON Original Note: ESSENCE received a call from Emily and patient was approved for TCU. Physician will discharge her this afternoon. ESSENCE will notify RN, pathology secretary, and patient's son. Deidre WINSTON
[2020-10-17] MEDS: Acetaminophen 500 MG Tablet 1000 MG PO ×2 (14:07→21:13)
--- NOTE | 2020-10-17 15:40 | CASEMGMT ---
[facility] Palliative screening tool completed for [employer]. Pt did not meet criteria.
--- NOTE | 2020-10-17 16:17 | CASEMGMT ---
ESSENCE spoke with patient's son when he arrived at [facility]. He asked why patient has to be in quarantine when she has had the vaccines. ESSENCE told him that is the state of [place]. He insisted [facility] put out new guidelines and changed this. ESSENCE told him ESSENCE is not aware of any changes other than after 14 days patient's can have visitors. ESSENCE called Emily and she confirmed this. ESSENCE let him know. Deidre GR MSW
[2020-10-17 17:09] LABS: Hemoglobin 7.9 g/dL (12.0-15.0); POSITIVE COUNT YES
[2020-10-17] MEDS: Ensure Surgery 237 ML LIQUID PO (17:56)
--- NOTE | 2020-10-17 18:15 | PCM.PROGNOTE ---
Patient Problems: Active and Suspected Problems (Last Reviewed 04/18/20 @ 14:21 by Alisia Mccullough) Hip fracture, left (Acute) CHF (congestive heart failure) (Acute) Anemia (Acute) Syncope and collapse (Acute) Dizziness and giddiness (Acute) Subjective: Patient was seen and examined today, she denied any shortness of breath or chest discomfort. Patient's hemoglobin was low this morning-she was given 1 unit of packed red blood cells, late this afternoon I repeated her hemoglobin but it is still low so I decided to transfuse 1 more unit of packed red blood cells and give her an infusion of Venofer. Patient was excepted to TCU today but I have delayed the transfer until she is reevaluated tomorrow. Patient is currently on room air. - Physical Exam Vitals/I&O's: Vital Signs Temp Pulse Resp BP Pulse Ox 97.7 F L 82 18 96/62 100 10/17/20 17:50 10/17/20 17:50 10/17/20 17:50 10/17/20 17:50 10/17/20 17:50 Oxygen Flow Rate (L/min) 2 Oxygen Delivery Method Room Air Weight: 59.8 kg Body Mass Index (BMI) 22.7 Intake and Output for Last 24 Hours 10/15/20 10/16/20 10/17/20 23:59 23:59 23:59 Intake Total 378 / 378 3320.84 / 3350.84 1097.5 / 1097.5 Output Total 2660 / 2660 325 / 425 600 / 600 Balance -2282 / -2282 2995.84 / 2925.84 497.5 / 497.5 General: Alert, Cooperative, No apparent distress, Well developed HEENT: Atraumatic, PERRLA, EOMI, Normocephalic Oral: Moist Mucosa Neck: Supple, No JVD, Trachea Midline, Thyroid Normal Size and Texture Lungs: Clear to auscultation, Normal air movement, No rhonchi, No wheeze, No rales Cardiovascular: Regular rate, Regular Rhythm, Normal S1, Normal S2, No murmurs, PMI Normal, No rub noted, No Gallop Abdomen: Bowel Sounds Present, Soft, Non Tender, Non-Distended Extremities: No clubbing, No cyanosis, No edema, Capillary Refill Less than 3 Seconds Skin: No rashes, No breakdown Neurological: Cranial nerves II-XII grossly intact, Neuro grossly intact, Sensory exam intact to light touch and pain Psych/Mental Status: Normal Affect, Appropriate Microbiology Past 72 Hours 10/15/20 09:30 Mucosa - Nose SARS-CoV-2 Antigen (Rapid) - Final Laboratory Results 10/15/20 15:10: Blood Type O POSITIVE, Antibody Screen NEGATIVE, Crossmatch See Detail 10/15/20 15:10: Crossmatch See Detail 10/17/20 04:30: WBC 8.2, RBC 2.11 L, Hgb 6.9 L, Hct 21.5 L, MCV 101.9 H, MCH 32.7 H, MCHC 32.1, RDW Std Deviation 61.1 H, RDW Coeff of Kelly 16.5 H, Plt Count 59 L 10/17/20 04:30: Sodium 140, Potassium 3.6, Chloride 105, Carbon Dioxide 31.0, Anion Gap 4 L, BUN 41 H, Creatinine 0.87, Estim Creat Clear Calc 35.67, Est GFR (MDRD) Af Amer 80, Est GFR (MDRD) Non-Af 66, BUN/Creatinine Ratio 47.2 H, Glucose 111 H, Calcium 8.5 10/17/20 15:10: Crossmatch See Detail 10/17/20 16:48: Hgb 7.9 L, Hct 24.0 L Current Medications Acetaminophen (Acetaminophen 325 Mg Tablet) 650 mg PO Q6H PRN PRN PRN Reason: Pain Score 1-10/Temp > 100.7 F Last Admin: 10/16/20 11:29 Dose: 650 mg Documented by: Acetaminophen (Acetaminophen 500 Mg Tablet) 1,000 mg PO Q8 [facility] Last Admin: 10/17/20 14:07 Dose: 1,000 mg Documented by: Albuterol Sulfate (Albuterol 2.5 Mg/3 Ml Vial.Neb.) 2.5 mg INHALATION Q2H PRN PRN PRN Reason: SOB/Wheezing Amlodipine Besylate (Amlodipine 5 Mg Tablet) 5 mg PO DAILY [facility] Last Admin: 10/17/20 10:42 Dose: Not Given Documented by: Atorvastatin Calcium (Atorvastatin Calcium 40 Mg Tablet) 40 mg PO QHS [facility] Last Admin: 10/16/20 21:39 Dose: 40 mg Documented by: Cholecalciferol (Cholecalciferol (Vit D3) 1,000 Unit (25mcg)) 2,000 unit PO DAILY [facility] Last Admin: 10/17/20 10:43 Dose: 2,000 unit Documented by: Enoxaparin Sodium (Enoxaparin 40 Mg/0.4 Ml Syringe) 40 mg SC DAILY [facility] Last Admin: 10/17/20 10:41 Dose: Not Given Documented by: Enteral Nutritional Formula (Ensure Surgery 237 Ml Liquid) 237 ml PO TIDCM [facility] Last Admin: 10/17/20 17:56 Dose: 237 ml Documented by: Ferrous Sulfate (Ferrous Sulfate 325 Mg Tablet) 325 mg PO DAILYCM [facility] Last Admin: 10/17/20 10:43 Dose: 325 mg Documented by: Sodium Chloride () 250 mls @ 15 mls/hr IV .[id number] PRN PRN Reason: Saline Flush Last Infusion: 10/15/20 23:29 Dose: Infused Documented by: Sodium Chloride () 250 mls @ 15 mls/hr IV .[id number] PRN PRN Reason: Additional IVPB Infusion Lactated Ringer's () 1,000 mls @ 75 mls/hr IV .[id number] [facility] Last Admin: 10/17/20 14:14 Dose: Not Given Documented by: Ferric Sodium Gluconate Complex 250 mg/ Sodium Chloride 270 mls @ 135 mls/hr IV X1 ONE Stop: 10/17/20 20:29 Lisinopril (Lisinopril 5 Mg Tablet) 5 mg PO BID [facility] Last Admin: 10/17/20 10:42 Dose: Not Given Documented by: Loperamide HCl (Loperamide 2 Mg Capsule) 2 mg PO DAILY PRN PRN PRN Reason: Diarrhea Metoprolol Tartrate (Metoprolol Tartrate 50 Mg Tablet) 50 mg PO BID [facility] Last Admin: 10/17/20 10:43 Dose: 50 mg Documented by: Morphine Sulfate (Morphine 2 Mg/Ml Syringe) 2 mg IV Q3H PRN PRN PRN Reason: Pain Score 6-10 Nitroglycerin (Nitroglycerin (Inpatient Use) 0.4 Mg Tab.Subl) 0.4 mg SL Q5M PRN PRN Reason: CARDIAC/CHEST PAIN Nutritional Formula (Lactose Free) (Ensure Enlive 120 Ml Liquid) 120 ml PO 4X/DAY [facility] Last Admin: 03/12/21 17:55 Dose: Not Given Documented by: Oxycodone HCl (Oxycodone 5 Mg Tablet) 2.5 mg PO Q6H PRN PRN PRN Reason: Pain Score 4-10 Pantoprazole Sodium (Pantoprazole Sodium 20 Mg Tablet) 20 mg PO BID [facility] Last Admin: 10/17/20 10:43 Dose: 20 mg Documented by: Polyethylene Glycol (Polyethylene Glycol 3350 17 Gm Packet) 17 gm PO DAILY [facility] Last Admin: 10/17/20 10:43 Dose: 17 gm Documented by: Senna/Docusate Sodium (Senna/Docusate Sodium 1 Tablet) 2 tablet PO BID PRN PRN PRN Reason: Constipation Sodium Chloride (0.9% Saline Lock 10 Ml Syringe) 10 - 40 ml IV UD PRN PRN Reason: SALINE FLUSH Last Admin: 10/15/20 09:05 Dose: 10 ml Documented by: Medical Necessity - Tobacco Use Smoking Status: Never smoker Tobacco Use: Non-smoker Assessment/Plan All Active Problems (Last Reviewed 04/18/20 @ 14:21 by Alisia Mccullough) Hip fracture, left (Acute) CHF (congestive heart failure) (Acute) Anemia (Acute) Syncope and collapse (Acute) Dizziness and giddiness (Acute) Cancer of skin of back (Resolved) history of ischemic stroke (Resolved) #1 left subcapital femoral neck fracture secondary to osteoporosis-postop day #2 left hemiarthroplasty, continue PT and OT, patient will need at least temporary placement in intermediate facility at the time of discharge from the hospital #2 severe mitral stenosis-particular attention will be paid to fluid administration postop #3 mild coronary artery disease #4 mild pulmonary hypertension #5 essential hypertension #6 chronic diastolic congestive heart failure #7 cognitive impairment-most probably secondary to undiagnosed dementia, patient's son states that patient has periods of confusion which she describes as mild and most times appears cognitively intact. The assisted living facility confirms this. Patient's mental status appears improved today #8 bilateral carotid bruits-patient has a past history of this in her chart, it is unclear how extensive these are. I have not planned to order any testing on the patient at this time #9 severe aortic stenosis #10 acute blood loss anemia secondary to expected blood loss from left hip fracture-patient will receive 1 more unit of packed red blood cells and CBC will be checked tomorrow morning Inpatient E&M: [id number] Subs Hosp L2
[2020-10-17] MEDS: Lactated Ringers 1,000 ML 75 ML IV (18:35)
[2020-10-17] MEDS: Atorvastatin Calcium 40 MG Tablet PO (21:13)
[2020-10-18] VITALS (20 sets, daily range): BP systolic 106–136; BP diastolic 50–62; PULSE 68–87; RESP 15–18; TEMP 36.4–36.7; O2SAT 93–100
[2020-10-18 05:56] LABS: Hematocrit 23.6 % (37-47); Hemoglobin 7.8 g/dL (12.0-15.0); Mean Corp Hgb Conc 33.1 g/dL (32-36); Mean Corpuscular Hgb 31.8 pg (27.0-32.0); Mean Corpuscular Volume 96.3 fL (81-99); POSITIVE COUNT YES; POSITIVE MORPHOLOGY YES; Platelet Count 59 K/mm3 (150-450); RBC Distribution Width CV 19.4 % (11.6-14.6); RBC Distribution Width SD 66.3 fl (35.1-43.9); Red Blood Count 2.45 M/mm3 (4.2-5.4); White Blood Count 7.5 K/mm3 (4.4-11.0)
[2020-10-18 06:12] LABS: Scan Indicated on CBC? Y/N YES- FLAGS NOTED
--- NOTE | 2020-10-18 06:24 | NURSING ---
NO URINE OUTPUT NOTED. BLADDER SCANNED PT 575 CC. STRAIGHT CATH'D FOR 500 CC DARK YELLOW URINE. PT REPOSITIONED FOR COMFORT. TYLENOL HELD THIS AM PT IS TOO SLEEPY
[2020-10-18] MEDS: Ferrous Sulfate 325 MG Tablet PO (09:58)
[2020-10-18] MEDS: Metoprolol Tartrate 50 MG Tablet PO (09:59)
[2020-10-18] MEDS: Pantoprazole Sodium 20 MG Tablet PO (10:02)
[2020-10-18] MEDS: Polyethylene Glycol 3350 17 GM PACKET PO (10:02)
[2020-10-18] MEDS: 0.9% Saline Lock 10 ML Syringe IV ×3 (10:08→15:57)
[2020-10-18] MEDS: Furosemide 20 MG/2 ML VIAL IV (10:40)
[2020-10-18] MEDS: Furosemide 40 MG/4 ML Vial IV (15:57)
[2020-10-18 17:07] LABS: Hematocrit 32.6 % (37-47); Hemoglobin 10.5 g/dL (12.0-15.0)
--- NOTE | 2020-10-18 17:18 | PCM.TXEXTCAR ---
- Diet 10/17/20 17:42 Diet: Regular - General Is pt able to select menu?: No - Routine Orders/Code Status Change Mott Catheter: Discontinue Mott in 72 hours Routine Lab Work: CBC - In 48 hours Code Status: Full Code - Wound(s) Left side face Wound Type: Abrasion LEFT HIP Wound Type: Surgical Incision - Therapies Weight Bearing: Weight bearing as tolerated Physical Therapy: Eval and Treat Occupational Therapy: Eval and Treat - Problem/Diagnosis (1) Hip fracture, left Status: Acute (2) Anemia Status: Acute Comment: Blood loss anemia- acute-secondary to left hip fracture, required blood transfusion (3) Nonrheumatic aortic (valve) stenosis Status: Chronic (4) Essential hypertension Status: Chronic (5) Hyperlipidemia Status: Chronic (6) Osteoporosis Status: Chronic (7) Coronary artery disease-nonobstructive Status: Chronic (8) Nonrheumatic mitral valve stenosis with insufficiency Status: Chronic (9) Suspected cognitive impairment Status: Chronic Comment: Type unknown (10) Urinary retention Status: Acute Comment: Patient was placed on Flomax on 10/18/2020 - Allergies/Procedures Done in Hospital Allergies/Adverse Reactions: Allergies buspirone [From BuSpar] Allergy (Unknown, Verified 10/14/20 21:02) Unknown cimetidine [From Tagamet] Allergy (Unknown, Verified 10/14/20 21:02) unknown Procedures: - - Left hip hemiarthroplasty 10/15/2020 - Type of Care/Length of Stay Estimated LOS: Convalescent Care Less Than 30 days Type of Care Needed: Skilled Rehab Potential: Good Prognosis: Good - Additional Orders/Day of Discharge Additional Orders: Discontinue Mott catheter after 72 hours. Change dressing over hip incision daily after cleaning with soap and water, patient to follow-up in 2 weeks for wound check and staple removal at Dr. Burdick's office-make appointment H&P will serve as current which was dated: 10/14/20 Day of Discharge: 10/18/20 - Dietary and Speech Recommendations Dietitian Recommendations/Changes: regular diet when medically indicated; 120mL ensure enlive 4x/day w/ medpass - Follow Up Care Primary Care Physician: Johnny Harkins MD [Primary Care Provider] - Please Follow Up With: Werner Burdick DO When: In 2 weeks
--- NOTE | 2020-10-18 17:28 | PCM.DC.SUM ---
Discharge Date and Diagnosis - Problem List Patient Problems: Active and Suspected Problems (Last Reviewed 04/18/20 @ 14:21 by Alisia Mccullough) Hip fracture, left (Acute) CHF (congestive heart failure) (Acute) Urinary retention (Acute) Patient was placed on Flomax on 10/18/2020 Anemia (Acute) Blood loss anemia- acute-secondary to left hip fracture, required blood transfusion Syncope and collapse (Acute) Dizziness and giddiness (Acute) Date of Admission: 10/15/20 Date of Discharge: 10/18/20 - Primary Discharge Diagnosis Acute Problems: Active Problems (Last Reviewed 04/18/20 @ 14:21 by Alisia Mccullough) #1 left subcapital femoral neck fracture secondary to osteoporosis #2 severe mitral stenosis-with mitral regurg #3 mild coronary artery disease #4 mild pulmonary hypertension #5 essential hypertension #6 chronic diastolic congestive heart failure #7 cognitive impairment-most probably secondary to undiagnosed dementia #8 bilateral carotid bruits #9 severe aortic stenosis #10 acute blood loss anemia secondary to left subcapital femoral neck fracture requiring transfusion #11 urinary retention - Secondary Discharge Diagnosis Chronic Problems: Chronic Problems (Last Reviewed 04/18/20 @ 14:21 by Alisia Mccullough) Osteoporosis (Chronic) Coronary artery disease-nonobstructive (Chronic) Suspected cognitive impairment (Chronic) Type unknown Presence of permanent cardiac pacemaker (Chronic) Dual chamber pacemaker implant 10/19 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) Nonrheumatic aortic (valve) stenosis (Chronic) Bilateral carotid bruits (Chronic) Essential hypertension (Chronic) Atherosclerotic heart disease of [place] coronary artery without angina pectoris (Chronic) Mild per cath 2011 Palpitations (Chronic) Cerebrovascular accident (Chronic) Acute myocardial infarction (Chronic) Supraventricular tachycardia (Chronic) Atrioventricular block, complete (Chronic) Hyperlipidemia (Chronic) LVH (left ventricular hypertrophy) (Chronic) Pulmonary HTN (Chronic) Hospital Course and Treatment Operations: - - Left hip hemiarthroplasty Procedures: None Summary of Care Provided: The patient is a 85 year old F was seen in the emergency room at [facility] after being transferred from an assisted care facility at which she lives due to a fall and complaints of left hip pain. Work-up in the emergency room showed the patient to have a left subcapital femoral neck fracture, she was admitted to PCU and seen in consultation by cardiology due to severe valvular heart disease, she was cleared for surgery, she was seen by orthopedic surgery, and underwent a left hemiarthroplasty. Postop there were no serious complications, she was anemic and it was felt to be secondary to her hip fracture, she was given transfusion of packed red blood cells. Patient remained somewhat confused during her hospital stay-this was felt to be possibly secondary to undiagnosed mild dementia. Patient also had urinary retention and a Mott had to be placed on discharge to the snf facility. On 10/18/2020, patient was seen and examined: On examination she appeared her stated age, she does not appear to be in any distress. Vital signs as documented. Skin warm and dry and without overt rashes. Neck without JVD, thyroid appears normal, trachea is midline, neck is supple. Lungs clear, normal air movement was noted. Heart exam notable for regular rhythm, normal sounds, there is a 2/6 systolic murmur noted at the left sternal border, apex, and right sternal border, no rubs or gallops were noted. Abdomen unremarkable and without evidence of organomegaly, masses, or abdominal aortic enlargement, bowel sounds are present in all 4 quadrants, no abdominal tenderness was noted. Extremities nonedematous, no cyanosis was noted, no clubbing was noted. Neuro: Cranial nerves II through XII are grossly intact, no focal motor deficits were noted, sensation to light touch and pinprick is intact, motor exam 5/5 throughout. Psych: Patient is alert, she is oriented as to self and place. On 10/18/2020, patient appeared stable for transfer to TCU for inpatient rehab care. Patient Problems: Active and Suspected Problems (Last Reviewed 04/18/20 @ 14:21 by Alisia Mccullough) Hip fracture, left (Acute) CHF (congestive heart failure) (Acute) Urinary retention (Acute) Patient was placed on Flomax on 10/18/2020 Anemia (Acute) Blood loss anemia- acute-secondary to left hip fracture, required blood transfusion Syncope and collapse (Acute) Dizziness and giddiness (Acute) - Physical Exam Vitals/I&O's: Vital Signs Temp Pulse Resp BP Pulse Ox 98.1 F 82 18 106/53 L 96 10/18/20 16:16 10/18/20 16:16 10/18/20 16:16 10/18/20 16:16 10/18/20 16:16 Oxygen Flow Rate (L/min) 2 Oxygen Delivery Method Room Air Weight: 60.5 kg Body Mass Index (BMI) 22.7 Intake and Output for Last 24 Hours 10/16/20 10/17/20 10/18/20 23:59 23:59 23:59 Intake Total 3320.84 / 3350.84 1781.25 / 1781.25 1820 / 1820 Output Total 325 / 425 600 / 600 500 / 500 Balance 2995.84 / 2925.84 1181.25 / 1181.25 1320 / 1320 Laboratory Results 10/15/20 15:10: Crossmatch See Detail 10/15/20 15:10: Crossmatch See Detail 10/17/20 15:10: Crossmatch See Detail 10/18/20 05:18: WBC 7.5, RBC 2.45 L, Hgb 7.8 L, Hct 23.6 L, MCV 96.3 D, MCH 31.8, MCHC 33.1, RDW Std Deviation 66.3 H, RDW Coeff of Kelly 19.4 H, Plt Count 59 L, MPV TNP 10/18/20 16:49: Hgb 10.5 L, Hct 32.6 L Current Medications Acetaminophen (Acetaminophen 325 Mg Tablet) 650 mg PO Q6H PRN PRN PRN Reason: Pain Score 1-10/Temp > 100.7 F Last Admin: 10/16/20 11:29 Dose: 650 mg Documented by: Acetaminophen (Acetaminophen 500 Mg Tablet) 1,000 mg PO Q8 [facility] Last Admin: 10/18/20 13:34 Dose: Not Given Documented by: Albuterol Sulfate (Albuterol 2.5 Mg/3 Ml Vial.Neb.) 2.5 mg INHALATION Q2H PRN PRN PRN Reason: SOB/Wheezing Amlodipine Besylate (Amlodipine 5 Mg Tablet) 5 mg PO DAILY [facility] Last Admin: 10/18/20 10:00 Dose: Not Given Documented by: Atorvastatin Calcium (Atorvastatin Calcium 40 Mg Tablet) 40 mg PO QHS [facility] Last Admin: 10/17/20 21:13 Dose: 40 mg Documented by: Cholecalciferol (Cholecalciferol (Vit D3) 1,000 Unit (25mcg)) 2,000 unit PO DAILY [facility] Last Admin: 10/18/20 10:01 Dose: 2,000 unit Documented by: Enoxaparin Sodium (Enoxaparin 40 Mg/0.4 Ml Syringe) 40 mg SC DAILY [facility] Last Admin: 10/18/20 10:00 Dose: Not Given Documented by: Enteral Nutritional Formula (Ensure Surgery 237 Ml Liquid) 237 ml PO TIDCM [facility] Last Admin: 10/18/20 16:03 Dose: Not Given Documented by: Ferrous Sulfate (Ferrous Sulfate 325 Mg Tablet) 325 mg PO DAILYCM [facility] Last Admin: 10/18/20 09:58 Dose: 325 mg Documented by: Sodium Chloride () 250 mls @ 15 mls/hr IV .[id number] PRN PRN Reason: Saline Flush Last Infusion: 10/15/20 23:29 Dose: Infused Documented by: Sodium Chloride () 250 mls @ 15 mls/hr IV .[id number] PRN PRN Reason: Additional IVPB Infusion Lactated Ringer's () 1,000 mls @ 75 mls/hr IV .[id number] [facility] Last Infusion: 10/18/20 16:19 Dose: 75 mls/hr Documented by: Lisinopril (Lisinopril 5 Mg Tablet) 5 mg PO BID [facility] Last Admin: 10/18/20 10:01 Dose: Not Given Documented by: Loperamide HCl (Loperamide 2 Mg Capsule) 2 mg PO DAILY PRN PRN PRN Reason: Diarrhea Metoprolol Tartrate (Metoprolol Tartrate 50 Mg Tablet) 50 mg PO BID [facility] Last Admin: 10/18/20 09:59 Dose: 50 mg Documented by: Morphine Sulfate (Morphine 2 Mg/Ml Syringe) 2 mg IV Q3H PRN PRN PRN Reason: Pain Score 6-10 Nitroglycerin (Nitroglycerin (Inpatient Use) 0.4 Mg Tab.Subl) 0.4 mg SL Q5M PRN PRN Reason: CARDIAC/CHEST PAIN Nutritional Formula (Lactose Free) (Ensure Enlive 120 Ml Liquid) 120 ml PO 4X/DAY [facility] Last Admin: 10/18/20 13:32 Dose: Not Given Documented by: Oxycodone HCl (Oxycodone 5 Mg Tablet) 2.5 mg PO Q6H PRN PRN PRN Reason: Pain Score 4-10 Pantoprazole Sodium (Pantoprazole Sodium 20 Mg Tablet) 20 mg PO BID [facility] Last Admin: 10/18/20 10:02 Dose: 20 mg Documented by: Polyethylene Glycol (Polyethylene Glycol 3350 17 Gm Packet) 17 gm PO DAILY [facility] Last Admin: 10/18/20 10:02 Dose: 17 gm Documented by: Senna/Docusate Sodium (Senna/Docusate Sodium 1 Tablet) 2 tablet PO BID PRN PRN PRN Reason: Constipation Sodium Chloride (0.9% Saline Lock 10 Ml Syringe) 10 - 40 ml IV UD PRN PRN Reason: SALINE FLUSH Last Admin: 10/18/20 15:57 Dose: 10 ml Documented by: Home Medications: Medications to take at Discharge lisinopril 5 mg tablet 5 mg PO BID #90 tab 07/27/18 metoprolol tartrate 50 mg tablet 50 mg PO BID #180 tab 11/29/19 Cholecalciferol (Vitamin D3) [Vitamin D3] 2,000 unit PO DAILY 03/27/20 Escitalopram Oxalate 20 mg PO DAILY 03/27/20 ferrous sulfate 325 mg (65 mg iron) tablet 325 mg PO DAILY 04/18/20 omeprazole 20 mg tablet,delayed release 20 mg PO BID 04/18/20 Amlodipine [Norvasc] 5 mg PO DAILY 10/14/20 Vit A/Vit C/Vit E/Zinc/Copper [Preservision Areds Softgel] 1 ea PO DAILY 10/14/20 Acetaminophen [Tylenol Tablet] 650 mg PO Q6H PRN PRN tab 10/18/20 Acetaminophen [Tylenol] 1,000 mg PO Q8 tab 10/18/20 Atorvastatin Calcium [Lipitor] 40 mg PO QHS tab 10/18/20 Enoxaparin [Lovenox] 40 mg SC DAILY #21 syringe 10/18/20 Ensure Enlive 120 ml PO 4X/DAY liquid 10/18/20 Oxycodone [Oxyir] 2.5 mg PO Q6H PRN PRN 7 Days #20 tab 10/18/20 Polyethylene Glycol 3350 [Miralax] 17 gm PO DAILY packet 10/18/20 Senna/Docusate Sodium [Senokot-S] 2 tab PO BID PRN PRN tab 10/18/20 Tamsulosin HCl [Flomax] 0.4 mg PO QHS #1 cap 10/18/20 Following Prescriptions Were Given to Patient: Tamsulosin HCl [Flomax] 0.4 mg PO QHS #1 cap Oxycodone [Oxyir] 2.5 mg PO Q6H PRN PRN 7 Days #20 tab PRN Reason: Pain Score 4-10 Prescription Printed Primary Care Physician: Johnny Harkins MD [Primary Care Provider] - Please Follow Up With: Werner Burdick DO When: In 2 weeks Disposition: Long-Term facility Minutes spent on discharge:: 33 Patient Condition:: Stable Medical Necessity - Tobacco Use Smoking Status: Never smoker Tobacco Use: Non-smoker Meaningful Use Info Meaningful Use Diagnoses (Choose all that apply): None applicable Inpatient E&M: 91652 Disch Hosp
--- NOTE | 2020-10-18 17:35 | NURSING ---
Mott catheter inserted at this time per Dr. Duran order. Pt has urinary retention. Was straight cathed x2 today. Unable to empty bladder when voiding.
--- NOTE | 2020-10-18 17:55 | NURSING ---
Report called to [facility] for pt transfer to [facility].
== END 2020-10-18 18:12 | disposition skilled nursing facility (03) | DRG 521 ==
LOC: ED 10-15 00:01 → PCU 10-15 00:55
PROVIDERS: Orthopaedic Surgery; Admitting Provider Internal Medicine; Emergency Provider Emergency Medicine; PCP Family Medicine; Visit Provider Internal Medicine
PROC: 0SRS0J9 Replacement of Left Hip Joint, Femoral Surface with Synthetic Substitute, Cemented, Open Approach (ICD-10-PCS; CPT 27125; principal; 2020-10-15 13:40)
DX: M80.052A Age-related osteoporosis with current pathological fracture, left femur, initial encounter for fracture (principal); I50.33 Acute on chronic diastolic (congestive) heart failure; D62 Acute posthemorrhagic anemia; I44.2 Atrioventricular block, complete; I08.0 Rheumatic disorders of both mitral and aortic valves; I25.10 Atherosclerotic heart disease of native coronary artery without angina pectoris; I27.20 Pulmonary hypertension, unspecified; I11.0 Hypertensive heart disease with heart failure; R33.9 Retention of urine, unspecified; D50.9 Iron deficiency anemia, unspecified; E78.5 Hyperlipidemia, unspecified; Z86.73 Personal history of transient ischemic attack (TIA), and cerebral infarction without residual deficits; Z95.0 Presence of cardiac pacemaker; D69.6 Thrombocytopenia, unspecified; Z79.899 Other long term (current) drug therapy; R09.89 Other specified symptoms and signs involving the circulatory and respiratory systems; R41.89 Other symptoms and signs involving cognitive functions and awareness
CPT/HCPCS: 36415; 51702; 70450; 71260; 72125; 73502; 80048; 80053; 81001; 83735; 83880; 84443; 84484; 85014; 85018; 85025; 85027; 85610; 85730; 86850; 86900; 86901; 86920; 86922; 87426; 93005; 93306; 97162; 97166; 97530; 97535; 97802; 99251; 99285; C1776; J7030; J7040; J7050; J7120; P9016; P9040; Q9967; A4216; G0463; J1940; J2916

== ENCOUNTER 2020-10-18 18:18 | Inpatient (IN) | payer MEDICARE, OTHER, SELFPAY ==
[2020-10-15 10:54] VITALS: BMI 22.7
[2020-10-18 18:22] VITALS: BP 126/55; PULSE 84; RESP 20; TEMP 36.9; O2SAT 97; BMI 23.3
[2020-10-18 18:54] VITALS: BMI 23.3
--- NOTE | 2020-10-18 19:52 | HP.PCM_ITS ---
Problem List (1) Debility Status: Acute (2) Closed left hip fracture Status: Acute (3) Postoperative anemia Status: Acute (4) Severe aortic stenosis Status: Chronic (5) Severe mitral valve stenosis Status: Chronic (6) Encephalopathy Status: Acute (7) Hypertension Status: Chronic (8) Coronary artery disease Status: Chronic (9) Vitamin D deficiency Status: Chronic (10) Depression Status: Chronic (11) Iron deficiency anemia Status: Chronic (12) Gastroesophageal reflux disease Status: Chronic (13) Urinary retention Status: Acute Comment: Patient was placed on Flomax on 10/18/2020 (14) Cerebrovascular accident Status: Chronic (15) Hyperlipidemia Status: Chronic Qualifiers: (16) Pulmonary HTN Status: Chronic History of Present Illness Date of Admission: 10/18/20 Chief Complaint: Here for rehabilitation, strengthening, [facility]. 10/14/2020 The patient is a 85 year old Female with below past medical history presented to [facility] Emergency Department with fall. 10/14/2020 CT brain left frontal, parietal, temporal scalp hematoma. Negative hemorrhage, chronic changes. 10/14/2020 CT cervical spine showed multilevel degenerative changes, negative acute fracture, negative subluxation. 10/14/2020 CT chest negative pulmonary embolism, negative aortic aneurysm, showed cardiomegaly, atherosclerosis, interstitial pulmonary edema, basilar at electasis, tiny pleural effusion, congestive heart failure, mediastinal adenopathy. 10/14/2020 X-ray left hip showed left hip fracture. Fall at prison, head injury, left hip pain. Lasix given for congestive heart failure. Consult Cardiology for surgical clearance. 10/15/2020 Echo Left ventricular systolic function normal. EF 60%. Left atrium severely enlarged. Severe mitral stenosis. Severe aortic stenosis. Right ventricular systolic pressure 34mm HG. 10/15/2020 Orthopedics performed left hip hemiarthroplasty. 10/16/2020 Decrease IV fluid to 75cc/hour for severe mitral stenosis. Probable cognitive impairment. 10/17/2020 Transfuse 1 unit PRBC for postoperative anemia. Confusion secondary to underlying undiagnosed dementia. Indwelling harmon catheter inserted for urinary retention. 10/18/2020 Admit to TCU with debility, here for rehabilitation, strengthening, prior to discharge to prison. Past Medical History Past Medical History (Chronic Problems): Chronic Problems (Last Reviewed 04/18/20 @ 14:21 by Alisia Mccullough) Osteoporosis (Chronic) Coronary artery disease-nonobstructive (Chronic) Suspected cognitive impairment (Chronic) Type unknown Severe aortic stenosis (Chronic) Severe mitral valve stenosis (Chronic) Hypertension (Chronic) Coronary artery disease (Chronic) Vitamin D deficiency (Chronic) Depression (Chronic) Iron deficiency anemia (Chronic) Gastroesophageal reflux disease (Chronic) Presence of permanent cardiac pacemaker (Chronic) Dual chamber pacemaker implant 10/19 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) Nonrheumatic aortic (valve) stenosis (Chronic) Bilateral carotid bruits (Chronic) Essential hypertension (Chronic) Atherosclerotic heart disease of [place] coronary artery without angina pectoris (Chronic) Mild per cath 2012 Palpitations (Chronic) Cerebrovascular accident (Chronic) Acute myocardial infarction (Chronic) Supraventricular tachycardia (Chronic) Atrioventricular block, complete (Chronic) Hyperlipidemia (Chronic) LVH (left ventricular hypertrophy) (Chronic) Pulmonary HTN (Chronic) Medical History: Medical History (Last Reviewed 04/18/20 @ 14:21 by Alisia Mccullough) Anemia (Acute) D64.9 Blood loss anemia- acute-secondary to left hip fracture, required blood transfusion 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) I34.2, I34.0 Nonrheumatic aortic (valve) stenosis (Chronic) I35.0 Bilateral carotid bruits (Chronic) R09.89 Essential hypertension (Chronic) I10 Atherosclerotic heart disease of [place] coronary artery without angina pectoris (Chronic) I25.10 Mild per cath 2012 Palpitations (Chronic) R00.2 Cerebrovascular accident (Chronic) I63.9 Acute myocardial infarction (Chronic) I21.9 Supraventricular tachycardia (Chronic) I47.1 Atrioventricular block, complete (Chronic) I44.2 Hyperlipidemia (Chronic) E78.5 LVH (left ventricular hypertrophy) (Chronic) I51.7 Pulmonary HTN (Chronic) I27.2 Iron deficiency anemia due to chronic blood loss (Inactive) D50.0 Allergies buspirone [From BuSpar] Allergy (Unknown, Verified 10/14/20 21:02) Unknown cimetidine [From Tagamet] Allergy (Unknown, Verified 10/14/20 21:02) unknown Home Medications: Ambulatory Orders Medication Instructions Recorded Cholecalciferol (Vitamin D3) 2,000 unit PO DAILY 03/27/20 [Vitamin D3] Escitalopram Oxalate 20 mg PO DAILY 03/27/20 ferrous sulfate 325 mg (65 mg 325 mg PO DAILY 04/18/20 iron) tablet omeprazole 20 mg tablet,delayed 20 mg PO BID 04/18/20 release Amlodipine [Norvasc] 5 mg PO DAILY 10/14/20 Vit A/Vit C/Vit E/Zinc/Copper 1 ea PO DAILY 10/14/20 [Preservision Areds Softgel] Acetaminophen [Tylenol Tablet] 650 mg PO Q6H PRN PRN tab 10/18/20 Acetaminophen [Tylenol] 1,000 mg PO Q8 10/18/20 Atorvastatin Calcium [Lipitor] 40 mg PO QHS 10/18/20 Calcium (Elemental) [Os-Young 500] 500 mg PO BIDCM 10/18/20 Enoxaparin [Lovenox] 40 mg SC DAILY 10/18/20 Ensure Enlive 120 ml PO 4X/DAY 10/18/20 Lisinopril [Zestril] 5 mg PO BID 10/18/20 Metoprolol Tartrate [Lopressor 50 mg PO BID 10/18/20 (beta trace)] Oxycodone [Oxyir] 2.5 mg PO Q6H PRN PRN 7 Days #20 10/18/20 tab Polyethylene Glycol 3350 [Miralax] 17 gm PO DAILY 10/18/20 Senna/Docusate Sodium [Senokot-S] 2 tab PO BID PRN PRN tab 10/18/20 Tamsulosin HCl [Flomax] 0.4 mg PO QHS 10/18/20 Surgical History: Surgical History (Last Reviewed 04/18/20 @ 14:21 by Alisia Mccullough) Presence of permanent cardiac pacemaker (Chronic) Z95.0 Dual chamber pacemaker implant 10/19 History of left heart catheterization (LHC) Onset Date: ~07/27/12 Z98.890 Mild CAD Surgical History: cataract - bilateral, cholecystectomy, hysterectomy - with oophorectomy for fibroids, pacemaker implantation - October of [address] Perez, - - Left hip hemiarthroplasty. 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 Paternal History Items: - - her father at 89 YOA of old AGE Sibling History Items: No pertinent history, - - she had a siser who at 12 YOA with a copper storage disease Review of Systems Constitutional: Denies: Chills, Fever, Weight Change HEENT: Denies: Head Aches, Sinus Congestion, Sinus Drainage Cardiovascular: Denies: Chest Pain, Palpitations Respiratory: Denies: Cough, Shortness of breath at rest, Sputum production Gastrointestinal: Denies: Abdominal Pain, Nausea, Vomiting Genitourinary: Denies: Dysuria Musculoskeletal: Denies: Joint Pain, Joint Tenderness Skin: Denies: Rash, Wounds Neurological: Denies: Numbness, Tingling, Focal weakness Psychiatric: Denies: Anxiety, Depression, Homicidal Ideations, Suicidal Ideations Hematologic/ Lymphatic: Denies: Easy Bruising, Easy Bleeding VTE Information - Inpt Only VTE Present on Admission: No VTE Mechan Device Prophylaxis: Knee High FELICITY Hose VTE Pharm Prophylaxis ordered?: Yes Patient Problems: Active and Suspected Problems (Last Reviewed 04/18/20 @ 14:21 by Alisia Mccullough) Urinary retention (Acute) Patient was placed on Flomax on 10/18/2020 Debility (Acute) Closed left hip fracture (Acute) Postoperative anemia (Acute) Encephalopathy (Acute) - Physical Exam Vitals/I&O's: Oxygen Delivery Method Room Air Body Mass Index (BMI) 22.7 General: Alert, Oriented x3, Cooperative HEENT: Atraumatic, PERRLA, EOMI, Normocephalic Neck: Supple, No JVD, Negative Carotid Bruits Lungs: Clear to auscultation, Normal air movement Cardiovascular: Regular rate, No murmurs Abdomen: Bowel Sounds Present, Soft, Non Tender Extremities: No edema, Capillary Refill Less than 3 Seconds Skin: No rashes, No breakdown Musculoskeletal: No Tenderness to Palpation of Joints or Extremities Neurological: Cranial nerves II-XII grossly intact Psych/Mental Status: Normal Affect, Appropriate Current Medications Acetaminophen (Acetaminophen 500 Mg Tablet) 1,000 mg PO Q8 [facility] Acetaminophen (Acetaminophen 325 Mg Tablet) 650 mg PO Q6H PRN PRN PRN Reason: Pain Score 1-10/Temp > 100.7 F Amlodipine Besylate (Amlodipine 5 Mg Tablet) 5 mg PO DAILY [facility] Atorvastatin Calcium (Atorvastatin Calcium 40 Mg Tablet) 40 mg PO QHS [facility] Calamine/Phenol (Menthol/Lanolin/Calamine/Znox 113 Gm Tube) 1 applic TOPICAL BID [facility]; Protocol Calcium Carbonate (Calcium (Elemental) 500 Mg Tablet) [facility] Cholecalciferol (Cholecalciferol (Vit D3) 1,000 Unit (25mcg)) 2,000 unit PO DAILY [facility] Enoxaparin Sodium (Enoxaparin 40 Mg/0.4 Ml Syringe) 40 mg SC DAILY [facility] Stop: 11/09/20 06:01 Escitalopram Oxalate (Escitalopram Oxalate 20 Mg Tablet) 20 mg PO DAILY [facility] Ferrous Sulfate (Ferrous Sulfate 325 Mg Tablet) [facility] Lisinopril (Lisinopril 5 Mg Tablet) 5 mg PO BID [facility] Metoprolol Tartrate (Metoprolol Tartrate 50 Mg Tablet) 50 mg PO BID [facility] Non-Formulary Medication (Vit A/Vit C/Vit E/Zinc/Copper) 1 ea PO DAILY [facility] Nutritional Formula (Lactose Free) (Ensure Enlive 120 Ml Liquid) 120 ml PO 4X/DAY [facility] Nystatin (Nystatin Powder 15gm Bottle) 1 applic TOPICAL BID [facility]; Protocol Oxycodone HCl (Oxycodone 5 Mg Tablet) 2.5 mg PO Q6H PRN PRN PRN Reason: Pain Score 4-10 Pantoprazole Sodium (Pantoprazole Sodium 20 Mg Tablet) 20 mg PO BID [facility] Polyethylene Glycol (Polyethylene Glycol 3350 17 Gm Packet) 17 gm PO DAILY [facility] Senna/Docusate Sodium (Senna/Docusate Sodium 1 Tablet) 1 tablet PO BID PRN PRN PRN Reason: Constipation Tamsulosin HCl (Tamsulosin Hcl 0.4 Mg Capsule) 0.4 mg PO QHS [facility] Tuberculin PPD (Tuberculin,Purif.Prot.Deriv. 50 Tu/Ml Vial) 5 tu ID X1 ONE Stop: 10/19/20 10:01 Tuberculin PPD (Tuberculin,Purif.Prot.Deriv. 50 Tu/Ml Vial) 5 tu ID X1 ONE Stop: 10/26/20 10:01 Assessment/Plan All Active Problems (Last Reviewed 04/18/20 @ 14:21 by Alisia Mccullough) Hip fracture, left (Acute) CHF (congestive heart failure) (Acute) Urinary retention (Acute) Debility (Acute) Closed left hip fracture (Acute) Postoperative anemia (Acute) Encephalopathy (Acute) Anemia (Acute) Syncope and collapse (Acute) Dizziness and giddiness (Acute) Cancer of skin of back (Resolved) history of ischemic stroke (Resolved) 85 year old female with below past medical history hospitalized for left hip fracture, underwent left hip hemiarthroplasty 10/15/2020 per Orthopedics, postoperative course complicated by postoperative anemia requiring transfusion, confusion secondary to underlying undiagnosed dementia, admitted to TCU with debility, here for rehabilitation, strengthening, prior to [facility] to prison. * Debility - PT/OT. * Cognition - ST. * Pain - Tylenol 1000MG Q8H, 650MG Q6H PRN pain (1-5), Oxycodone 2.5MG Q6H PRN pain (6-10). * Bowel - Miralax 17GM daily, Senna/colace 1 tablet BID, MOM 30ML daily PRN, Dulcolax 10MG daily PRN. * Adult immunization - Administer Prevnar 13, Pneumovax 23, Fluzone, COVID19 vaccine as appropriate. * DVT prophylaxis - Lovenox 40MG SC daily. * Hypertension - Metoprolol 50MG BID, Lisinopril 5MG BID, Amlodipine 5MG daily. * Hyperlipidemia - Atorvastatin 40MG QHS. * Calcium deficiency - Calcium 500MG BID. * Vitamin D deficiency - D3 2000IU daily. * Nutrition - MVI daily, Ensure 120ML 4x/day. * Depression - Lexapro 20MG daily, stable chronic snf use, GDR not recommended. * Iron deficiency anemia - Ferrous sulfate 325MG daily. * Skin irritation - Calmoseptine topical BID. * Tinea Corporis - Nystatin powder topical BID. * GERD - Pantoprazole 20MG BID. * Urinary retention - Tamsulosin 0.4MG QHS.
[2020-10-19 06:23] LABS: Absolute Lymphocyte Count 0.79 X10^3/uL (0.83-4.51); Absolute Neutrophil Count 6.1 X10^3/uL (2.0-7.7); Basophil# 0.03 X10^3/uL; Basophil% 0.4 % (0-1); Eosinophil# 0.18 X10^3/uL; Eosinophils% 2.3 % (0-5); Hematocrit 32.9 % (37-47); Hemoglobin 10.9 g/dL (12.0-15.0); Lymphocyte # 0.79 X10^3/ul (4.0); Lymphocyte % 9.9 % (19-41); Mean Corp Hgb Conc 33.1 g/dL (32-36); Mean Corpuscular Hgb 29.6 pg (27.0-32.0); Mean Corpuscular Volume 89.4 fL (81-99); Monocyte# 0.77 X10^3/uL; Monocyte% 9.7 % (0-10); NRBC Flagged by Analyzer 0 % (0-5); Neutrophil # 6.12 X10^3/uL (2.7-7.7); Neutrophil % 76.9 % (47-70); POSITIVE COUNT YES; POSITIVE MORPHOLOGY YES; Platelet Count 70 K/mm3 (150-450); RBC Distribution Width CV 23.1 % (11.6-14.6); RBC Distribution Width SD 75.1 fl (35.1-43.9); Red Blood Count 3.68 M/mm3 (4.2-5.4)
[2020-10-19 06:25] LABS: Differential Indicated SCAN CRITERIA MET
[2020-10-19] MEDS: Pantoprazole Sodium 20 MG Tablet PO ×2 (06:27→17:48)
[2020-10-19 06:28] VITALS: BP 119/75; PULSE 97
[2020-10-19] MEDS: Lisinopril 5 MG Tablet PO ×2 (06:28→17:48)
[2020-10-19] MEDS: Metoprolol Tartrate 50 MG Tablet PO ×2 (06:28→17:47)
[2020-10-19] MEDS: amLODIPine 5 MG Tablet PO (06:28)
[2020-10-19] MEDS: Escitalopram Oxalate 20 MG Tablet PO (06:28)
[2020-10-19] MEDS: Menthol/Lanolin/Calamine/Znox 113 GM Tube 1 APPLIC TOPICAL ×2 (06:28→17:50)
[2020-10-19] MEDS: Nystatin Powder 15gm Bottle 1 APPLIC TOPICAL ×2 (06:29→17:49)
[2020-10-19 06:41] LABS: Hypochromasia RARE; Microcytosis RARE; Ovalocyte RARE
[2020-10-19 06:42] VITALS: BP 119/75; PULSE 97; RESP 18; TEMP 36.4; O2SAT 96
[2020-10-19 06:42] LABS: Anion Gap 7 (5-15); BUN 25 mg/dL (7-18); BUN/Creat Ratio 43.9 RATIO (10-20); Calcium,Total 8.4 mg/dL (8.5-10.1); Chloride 103 mmol/L (98-107); Creatinine, Serum 0.57 mg/dL (0.55-1.02); EST Glomerular Filtration Rate 107 mL/min (>60); Est Glom Filt Rate - Afr Amer 130 mL/min (>60); Estimated Creatinine Clearance 35.52 ml/min; Glucose 108 mg/dL (74-106); Potassium 3.3 mmol/L (3.5-5.1); Sodium Level 141 mmol/L (136-145)
[2020-10-19] MEDS: Ferrous Sulfate 325 MG Tablet PO (08:16)
[2020-10-19] MEDS: Multivitamins,Ther W-Minerals Tablet 1 TABLET PO (08:16)
[2020-10-19] MEDS: Calcium (Elemental) 500 MG Tablet PO ×2 (08:17→17:48)
[2020-10-19] MEDS: Potassium Chloride Oral Tablet 20 MEQ PO (10:06)
--- NOTE | 2020-10-19 11:49 | NURSING ---
Pt urine tea colored and confused. Dr. Wang updated and new order for urinalysis was entered. Pt PLT count this Am was 70 Lovenox was held per heel seat laster. Dr. Wang updated new order to discontinue Lovenox and recheck CBC Tuesday.
[2020-10-19] MEDS: Tuberculin,Purif.prot.deriv. 50 TU/ML Vial 5 ML ID (12:44)
[2020-10-19] MEDS: Acetaminophen 500 MG Tablet 1000 MG PO ×2 (13:49→21:01)
[2020-10-19 14:40] VITALS: BP 113/59; PULSE 88; RESP 14; TEMP 36.8; O2SAT 96
[2020-10-19 15:25] LABS: Bacteria 0 SEEN /hpf (None Seen); Mucous, Urine 0 SEEN /hpf (<or=2+)
[2020-10-19 15:28] LABS: Color, Urine Yellow (Yellow); Glucose, Dipstick Normal (Normal); Ketone-Dipstick 5 mg/dl (Negative); Leukocyte Esterase-Dipstick 100 /ul (Negative); Nitrite-Dipstick Negative (Negative); Occult Blood-Urine 10 /ul (Negative); Protein-Dipstick 30 mg/dl (Negative); Urine Bilirubin Dipstick Negative (Negative); Urine Urobilinogen 1 mg/dl (Normal)
[2020-10-19 15:41] LABS: Red Blood Cells-Urine 0-5 SEEN /hpf (0-5); Urine Clarity Sl Cldy (Clear); White Blood Cells 10-25 SEEN /hpf (0-5)
[2020-10-19 15:42] LABS: Amorphous Sediment 1+ URATE; Squamous Epithelial Cells - UA 0-5 SEEN /hpf (5-10)
--- NOTE | 2020-10-19 16:28 | NURSING ---
Talked with pt's son to give him a update on his mother and ask him admission questions d/t pt altered mental status.
[2020-10-19 17:47] VITALS: BP 113/43; PULSE 93
[2020-10-19] MEDS: Senna/Docusate Sodium 1 Tablet PO (17:48)
[2020-10-20 05:43] LABS: Absolute Lymphocyte Count 0.93 X10^3/uL (0.83-4.51); Absolute Neutrophil Count 5.4 X10^3/uL (2.0-7.7); Basophil# 0.03 X10^3/uL; Basophil% 0.4 % (0-1); Eosinophil# 0.19 X10^3/uL; Eosinophils% 2.6 % (0-5); Hematocrit 28.1 % (37-47); Hemoglobin 9.2 g/dL (12.0-15.0); Lymphocyte # 0.93 X10^3/ul (4.0); Lymphocyte % 12.8 % (19-41); Mean Corp Hgb Conc 32.7 g/dL (32-36); Mean Corpuscular Hgb 30.4 pg (27.0-32.0); Mean Corpuscular Volume 92.7 fL (81-99); Monocyte# 0.71 X10^3/uL; Monocyte% 9.8 % (0-10); NRBC Flagged by Analyzer 0 % (0-5); Neutrophil # 5.36 X10^3/uL (2.7-7.7); Neutrophil % 73.7 % (47-70); POSITIVE COUNT YES; POSITIVE MORPHOLOGY YES; Platelet Count 75 K/mm3 (150-450); RBC Distribution Width CV 22.3 % (11.6-14.6); RBC Distribution Width SD 75.4 fl (35.1-43.9); Red Blood Count 3.03 M/mm3 (4.2-5.4); White Blood Count 7.3 K/mm3 (4.4-11.0)
[2020-10-20 05:44] LABS: Differential Indicated SCAN CRITERIA MET
[2020-10-20 06:08] VITALS: BP 113/54; PULSE 81; RESP 18; TEMP 36.7; O2SAT 92
[2020-10-20] MEDS: Acetaminophen 500 MG Tablet 1000 MG PO ×3 (06:15→21:14)
[2020-10-20 06:16] VITALS: PULSE 84
[2020-10-20] MEDS: Metoprolol Tartrate 50 MG Tablet PO ×2 (06:16→17:31)
[2020-10-20] MEDS: Lisinopril 5 MG Tablet PO ×2 (06:16→17:31)
[2020-10-20] MEDS: amLODIPine 5 MG Tablet PO (06:16)
[2020-10-20] MEDS: Menthol/Lanolin/Calamine/Znox 113 GM Tube 1 APPLIC TOPICAL ×2 (06:16→17:34)
[2020-10-20] MEDS: Pantoprazole Sodium 20 MG Tablet PO ×2 (06:16→17:32)
[2020-10-20] MEDS: Escitalopram Oxalate 20 MG Tablet PO (06:16)
[2020-10-20] MEDS: Nystatin Powder 15gm Bottle 1 APPLIC TOPICAL ×2 (06:17→17:34)
[2020-10-20] MEDS: Senna/Docusate Sodium 1 Tablet PO ×2 (06:18→17:31)
[2020-10-20] MEDS: Ferrous Sulfate 325 MG Tablet PO (08:34)
[2020-10-20] MEDS: Multivitamins,Ther W-Minerals Tablet 1 TABLET PO (08:35)
[2020-10-20] MEDS: Calcium (Elemental) 500 MG Tablet PO ×2 (08:35→17:32)
[2020-10-20] MEDS: Potassium Chloride Oral Tablet 20 MEQ PO (08:45)
--- NOTE | 2020-10-20 09:51 | NURSING ---
therapy called this nurse to room. pt has red calista post right leg,abd applied with chrissie wrap. rn aware.
--- NOTE | 2020-10-20 14:20 | PHA.CONS_ITS ---
<Yelena Bradford - Last Filed: 10/20/20 14:20> Progress Note - Pharmacy Subjective: TCU Admission Objective: Allergies buspirone [From BuSpar] Allergy (Unknown, Verified 10/14/20 21:02) Unknown cimetidine [From Tagamet] Allergy (Unknown, Verified 10/14/20 21:02) unknown Current Medications Generic Name Dose Route Start Last Admin Trade Name Freq PRN Reason Stop Dose Admin Acetaminophen 1,000 mg 10/18/20 22:00 10/20/20 06:15 Acetaminophen 500 Mg Tablet PO 1,000 mg Q8 [facility] Administration Acetaminophen 650 mg 10/18/20 18:50 Acetaminophen 325 Mg Tablet PO Q6H PRN PRN Pain Score 1-5 Amlodipine Besylate 5 mg 10/19/20 06:00 10/20/20 06:16 Amlodipine 5 Mg Tablet PO 5 mg DAILY [facility] Administration Atorvastatin Calcium 40 mg 10/18/20 22:00 10/19/20 21:02 Atorvastatin Calcium 40 Mg Tablet PO Not Given QHS [facility] Bisacodyl 10 mg 10/18/20 20:32 Bisacodyl 5 Mg Tablet PO DAILY PRN Constipation Calamine/Phenol 1 applic 10/19/20 06:00 10/20/20 06:16 Menthol/Lanolin/Calamine/Znox 113 Gm Tube TOPICAL 1 applicatio BID [facility] Administration Protocol Calcium Carbonate 500 mg 10/19/20 08:00 10/20/20 08:35 Calcium (Elemental) 500 Mg Tablet PO 500 mg BIDCM [facility] Administration Cholecalciferol 2,000 unit 10/19/20 06:00 10/20/20 06:16 Cholecalciferol (Vit D3) 1,000 Unit (25mcg) PO 2,000 unit DAILY [facility] Administration Escitalopram Oxalate 20 mg 10/19/20 06:00 10/20/20 06:16 Escitalopram Oxalate 20 Mg Tablet PO 20 mg DAILY [facility] Administration Ferrous Sulfate 325 mg 10/19/20 08:00 10/20/20 08:34 Ferrous Sulfate 325 Mg Tablet PO 325 mg DAILYCM [facility] Administration Lisinopril 5 mg 10/19/20 06:00 10/20/20 06:16 Lisinopril 5 Mg Tablet PO 5 mg BID [facility] Administration Magnesium Hydroxide 30 ml 10/18/20 20:31 Magnesium Hydroxide 30 Ml Udc PO DAILY PRN Constipation Metoprolol Tartrate 50 mg 10/19/20 06:00 10/20/20 06:16 Metoprolol Tartrate 50 Mg Tablet PO 50 mg BID [facility] Administration Multivitamins/Minerals 1 tablet 10/19/20 08:00 10/20/20 08:35 Multivitamins,Ther W-Minerals Tablet PO 1 tablet DAILY@0800 [facility] Administration Nutritional Formula (Lactose Free) 120 ml 10/18/20 22:00 10/20/20 12:20 Ensure Enlive 120 Ml Liquid PO Not Given 4X/DAY [facility] Nystatin 1 applic 10/19/20 06:00 10/20/20 06:17 Nystatin Powder 15gm Bottle TOPICAL 1 applicatio BID [facility] Administration Protocol Oxycodone HCl 2.5 mg 10/18/20 20:33 Oxycodone 5 Mg Tablet PO Q6H PRN PRN Pain Score 6-10 Pantoprazole Sodium 20 mg 10/19/20 06:00 10/20/20 06:16 Pantoprazole Sodium 20 Mg Tablet PO 20 mg BID [facility] Administration Polyethylene Glycol 17 gm 10/19/20 06:00 10/20/20 06:14 Polyethylene Glycol 3350 17 Gm Packet PO Not Given DAILY [facility] Potassium Chloride 20 meq 10/20/20 08:00 10/20/20 08:45 Potassium Chloride Oral Tablet 20 Meq PO 10/27/20 08:01 20 meq DAILYCM [facility] Administration Senna/Docusate Sodium 1 tablet 10/19/20 06:00 10/20/20 06:18 Senna/Docusate Sodium 1 Tablet PO 1 tablet BID [facility] Administration Tamsulosin HCl 0.4 mg 10/18/20 22:00 10/19/20 21:02 Tamsulosin Hcl 0.4 Mg Capsule PO Not Given QHS [facility] Tuberculin PPD 5 tu 10/26/20 10:00 Tuberculin,Purif.Prot.Deriv. 50 Tu/Ml Vial ID 10/26/20 10:01 X1 ONE Problem List (Last Reviewed 04/18/20 @ 14:21 by Alisia Mccullough) Urinary retention (Acute) Debility (Acute) Closed left hip fracture (Acute) Postoperative anemia (Acute) Severe aortic stenosis (Chronic) Severe mitral valve stenosis (Chronic) Encephalopathy (Acute) Hypertension (Chronic) Coronary artery disease (Chronic) Vitamin D deficiency (Chronic) Depression (Chronic) Iron deficiency anemia (Chronic) Gastroesophageal reflux disease (Chronic) Cerebrovascular accident (Chronic) Hyperlipidemia (Chronic) Pulmonary HTN (Chronic) Vital Signs Temp Pulse Resp BP Pulse Ox 98.0 F 84 18 113/54 L 92 10/20/20 06:08 10/20/20 06:16 10/20/20 06:08 10/20/20 06:08 10/20/20 06:08 Oxygen Delivery Method Room Air Weight: 61.689 kg Body Mass Index (BMI) 23.3 Sodium 141 mmol/L (136-145) 10/19/20 06:00 Potassium 3.3 mmol/L (3.5-5.1) L 10/19/20 06:00 Chloride 103 mmol/L (98-107) 10/19/20 06:00 Carbon Dioxide 31.0 mmol/L (21.0-32.0) 10/19/20 06:00 Anion Gap 7 (5-15) 10/19/20 06:00 BUN 25 mg/dL (7-18) H 10/19/20 06:00 Creatinine 0.57 mg/dL (0.55-1.02) 10/19/20 06:00 Est GFR (MDRD) Af Amer 130 mL/min (>60) 10/19/20 06:00 Est GFR (MDRD) Non-Af 107 mL/min (>60) 10/19/20 06:00 BUN/Creatinine Ratio 43.9 RATIO (10-20) H 10/19/20 06:00 Glucose 108 mg/dL (74-106) H 10/19/20 06:00 Assessment/Plan: 1. Pain: acetaminophen 1000mg PO Q8H, acetaminophen 650mg PO Q6H PRN pain 1-5 and oxycodone 2.5mg PO Q6H PRN pain 6-10. Please continue to monitor for S/S of pain and PRN usage. 2. Hypertension: metoprolol tartrate 50mg PO BID, lisinopril 5mg PO BID and amlodipine 5mg PO daily. Please continue to monitor BP (last 113/54), HR (last 84), swelling, renal function and potassium. 3. Hyperlipidemia: atorvastatin 40mg PO QHS. Please continue to monitor lipid panel (last 07/2020) and for muscle pain. 4. Iron deficiency anemia: ferrous sulfate 325mg PO DAILYCM. Please continue to monitor hemoglobin (last 9.2g/dL) and for dark stools. 5. GERD: pantoprazole 20mg PO BID. Please continue to monitor for GERD and diarrhea. *6. Urinary retention: tamsulosin 0.4mg PO QHS. Patient has refused 2/2 doses so far. Please continue to monitor for bladder emptying and hypotension. Please consider stopping the drug if patient continues to refuse doses. Thanks. 7. Hypokalemia (K= 3.3mmol/L): potassium chloride 20mEq PO DAILYCM thru 10/27/20. Please continue to monitor potassium levels. *8. Vitamin/electrolyte deficiencies: calcium carbonate 500mg PO BIDCM, cholecalciferol 2000units PO daily, and multivitamin with minerals 1T PO DAILYCM. Please continue to monitor calcium (last 8.4 mg/dL). Patient does not have a vitamin D level in chart. Please consider ordering one now and then annually as clinically appropriate. Thanks. Psychotropic Medications: 1. Depression: escitalopram 20mg PO daily. Please see physician note regarding GDR. Unnecessary Medications: None *Bowel Regimen: Miralax 17gm PO daily, senna/docusate 1T PO BID, MOM 30mL PO daily PRN constipation and bisacodyl 10mg PO daily PRN constipation. Please consider changing Miralax from scheduled to PRN. Patient has refused 2/2 doses. Please continue to monitor for constipation and PRN usage. Date of Note:: 10/20/20 - Provider Comments Provider responsibility: Provider responsible to enter orders to implement recommendations <King Wang Chi - Last Filed: 10/20/20 17:09> Progress Note - Pharmacy Subjective: [] Objective: Allergies buspirone [From BuSpar] Allergy (Unknown, Verified 10/14/20 21:02) Unknown cimetidine [From Tagamet] Allergy (Unknown, Verified 10/14/20 21:02) unknown Current Medications Generic Name Dose Route Start Last Admin Trade Name Freq PRN Reason Stop Dose Admin Acetaminophen 1,000 mg 10/18/20 22:00 10/20/20 14:51 Acetaminophen 500 Mg Tablet PO 1,000 mg Q8 [facility] Administration Acetaminophen 650 mg 10/18/20 18:50 Acetaminophen 325 Mg Tablet PO Q6H PRN PRN Pain Score 1-5 Amlodipine Besylate 5 mg 10/19/20 06:00 10/20/20 06:16 Amlodipine 5 Mg Tablet PO 5 mg DAILY [facility] Administration Atorvastatin Calcium 40 mg 10/18/20 22:00 10/19/20 21:02 Atorvastatin Calcium 40 Mg Tablet PO Not Given QHS [facility] Bisacodyl 10 mg 10/18/20 20:32 Bisacodyl 5 Mg Tablet PO DAILY PRN Constipation Calamine/Phenol 1 applic 10/19/20 06:00 10/20/20 06:16 Menthol/Lanolin/Calamine/Znox 113 Gm Tube TOPICAL 1 applicatio BID [facility] Administration Protocol Calcium Carbonate 500 mg 10/19/20 08:00 10/20/20 08:35 Calcium (Elemental) 500 Mg Tablet PO 500 mg BIDCM [facility] Administration Cholecalciferol 2,000 unit 10/19/20 06:00 10/20/20 06:16 Cholecalciferol (Vit D3) 1,000 Unit (25mcg) PO 2,000 unit DAILY [facility] Administration Escitalopram Oxalate 20 mg 10/19/20 06:00 10/20/20 06:16 Escitalopram Oxalate 20 Mg Tablet PO 20 mg DAILY [facility] Administration Ferrous Sulfate 325 mg 10/19/20 08:00 10/20/20 08:34 Ferrous Sulfate 325 Mg Tablet PO 325 mg DAILYCM [facility] Administration Lisinopril 5 mg 10/19/20 06:00 10/20/20 06:16 Lisinopril 5 Mg Tablet PO 5 mg BID [facility] Administration Magnesium Hydroxide 30 ml 10/18/20 20:31 Magnesium Hydroxide 30 Ml Udc PO DAILY PRN Constipation Metoprolol Tartrate 50 mg 10/19/20 06:00 10/20/20 06:16 Metoprolol Tartrate 50 Mg Tablet PO 50 mg BID [facility] Administration Multivitamins/Minerals 1 tablet 10/19/20 08:00 10/20/20 08:35 Multivitamins,Ther W-Minerals Tablet PO 1 tablet DAILY@0800 [facility] Administration Nutritional Formula (Lactose Free) 120 ml 10/18/20 22:00 10/20/20 12:20 Ensure Enlive 120 Ml Liquid PO Not Given 4X/DAY [facility] Nystatin 1 applic 10/19/20 06:00 10/20/20 06:17 Nystatin Powder 15gm Bottle TOPICAL 1 applicatio BID [facility] Administration Protocol Oxycodone HCl 2.5 mg 10/18/20 20:33 Oxycodone 5 Mg Tablet PO Q6H PRN PRN Pain Score 6-10 Pantoprazole Sodium 20 mg 10/19/20 06:00 10/20/20 06:16 Pantoprazole Sodium 20 Mg Tablet PO 20 mg BID [facility] Administration Polyethylene Glycol 17 gm 10/19/20 06:00 10/20/20 06:14 Polyethylene Glycol 3350 17 Gm Packet PO Not Given DAILY [facility] Potassium Chloride 20 meq 10/20/20 08:00 10/20/20 08:45 Potassium Chloride Oral Tablet 20 Meq PO 10/27/20 08:01 20 meq DAILYCM [facility] Administration Senna/Docusate Sodium 1 tablet 10/19/20 06:00 10/20/20 06:18 Senna/Docusate Sodium 1 Tablet PO 1 tablet BID [facility] Administration Tamsulosin HCl 0.4 mg 10/18/20 22:00 10/19/20 21:02 Tamsulosin Hcl 0.4 Mg Capsule PO Not Given QHS [facility] Tuberculin PPD 5 tu 10/26/20 10:00 Tuberculin,Purif.Prot.Deriv. 50 Tu/Ml Vial ID 10/26/20 10:01 X1 ONE Problem List (Last Reviewed 04/18/20 @ 14:21 by Alisia Mccullough) Urinary retention (Acute) Debility (Acute) Closed left hip fracture (Acute) Postoperative anemia (Acute) Severe aortic stenosis (Chronic) Severe mitral valve stenosis (Chronic) Encephalopathy (Acute) Hypertension (Chronic) Coronary artery disease (Chronic) Vitamin D deficiency (Chronic) Depression (Chronic) Iron deficiency anemia (Chronic) Gastroesophageal reflux disease (Chronic) Cerebrovascular accident (Chronic) Hyperlipidemia (Chronic) Pulmonary HTN (Chronic) Vital Signs Temp Pulse Resp BP Pulse Ox 97.3 F L 80 16 97/39 L 96 10/20/20 16:18 10/20/20 16:18 10/20/20 16:18 10/20/20 16:18 10/20/20 16:18 Oxygen Delivery Method Room Air Weight: 61.689 kg Body Mass Index (BMI) 23.3 Sodium 141 mmol/L (136-145) 10/19/20 06:00 Potassium 3.3 mmol/L (3.5-5.1) L 10/19/20 06:00 Chloride 103 mmol/L (98-107) 10/19/20 06:00 Carbon Dioxide 31.0 mmol/L (21.0-32.0) 10/19/20 06:00 Anion Gap 7 (5-15) 10/19/20 06:00 BUN 25 mg/dL (7-18) H 10/19/20 06:00 Creatinine 0.57 mg/dL (0.55-1.02) 10/19/20 06:00 Est GFR (MDRD) Af Amer 130 mL/min (>60) 10/19/20 06:00 Est GFR (MDRD) Non-Af 107 mL/min (>60) 10/19/20 06:00 BUN/Creatinine Ratio 43.9 RATIO (10-20) H 10/19/20 06:00 Glucose 108 mg/dL (74-106) H 10/19/20 06:00 Assessment/Plan: Psychotropic Medications: Unnecessary Medications: Bowel Regimen: - Provider Comments Provider responsibility: Provider responsible to enter orders to implement recommendations Provider Comments to Recommendations by Pharmacy: Agree
[2020-10-20 16:18] VITALS: BP 97/39; PULSE 80; RESP 16; TEMP 36.3; O2SAT 96
[2020-10-20 17:30] VITALS: BP 98/40
[2020-10-20 17:31] VITALS: PULSE 84
[2020-10-20] MEDS: Atorvastatin Calcium 40 MG Tablet PO (20:16)
[2020-10-21 06:02] LABS: Anion Gap 3 (5-15); BUN 27 mg/dL (7-18); BUN/Creat Ratio 44.9 RATIO (10-20); Calcium,Total 8.3 mg/dL (8.5-10.1); Chloride 104 mmol/L (98-107); EST Glomerular Filtration Rate 100 mL/min (>60); Est Glom Filt Rate - Afr Amer 122 mL/min (>60); Estimated Creatinine Clearance 35.52 ml/min; Glucose 102 mg/dL (74-106); Potassium 3.6 mmol/L (3.5-5.1); Sodium Level 141 mmol/L (136-145)
[2020-10-21 06:20] VITALS: BP 110/46; PULSE 79; RESP 16; TEMP 36.6; O2SAT 96
[2020-10-21 06:24] VITALS: BP 110/46; PULSE 79
[2020-10-21] MEDS: Escitalopram Oxalate 20 MG Tablet PO (06:24)
[2020-10-21] MEDS: Metoprolol Tartrate 50 MG Tablet PO ×2 (06:24→16:54)
[2020-10-21] MEDS: Menthol/Lanolin/Calamine/Znox 113 GM Tube 1 APPLIC TOPICAL ×2 (06:24→16:55)
[2020-10-21] MEDS: amLODIPine 5 MG Tablet PO (06:25)
[2020-10-21] MEDS: Nystatin Powder 15gm Bottle 1 APPLIC TOPICAL ×2 (06:25→16:54)
[2020-10-21] MEDS: Pantoprazole Sodium 20 MG Tablet PO ×2 (06:26→16:54)
[2020-10-21] MEDS: Senna/Docusate Sodium 1 Tablet PO (06:26)
[2020-10-21] MEDS: Acetaminophen 500 MG Tablet 1000 MG PO ×3 (06:26→20:06)
[2020-10-21] MEDS: Lisinopril 5 MG Tablet PO ×2 (06:27→16:54)
[2020-10-21] MEDS: Multivitamins,Ther W-Minerals Tablet 1 TABLET PO (08:13)
[2020-10-21] MEDS: Potassium Chloride Oral Tablet 20 MEQ PO (08:13)
[2020-10-21] MEDS: Calcium (Elemental) 500 MG Tablet PO ×2 (08:14→16:54)
[2020-10-21] MEDS: Ferrous Sulfate 325 MG Tablet PO (08:14)
[2020-10-21 13:59] VITALS: BP 101/57; PULSE 75; RESP 15; TEMP 36.7; O2SAT 96
[2020-10-21 16:54] VITALS: PULSE 75
[2020-10-21] MEDS: oxyCODONE 5 MG Tablet 2.5 MG PO (20:06)
[2020-10-21] MEDS: Atorvastatin Calcium 40 MG Tablet PO (20:06)
[2020-10-22] MEDS: Menthol/Lanolin/Calamine/Znox 113 GM Tube 1 APPLIC TOPICAL ×2 (05:09→18:01)
[2020-10-22] MEDS: Lisinopril 5 MG Tablet PO ×2 (05:10→17:59)
[2020-10-22] MEDS: Escitalopram Oxalate 20 MG Tablet PO (05:10)
[2020-10-22] MEDS: Acetaminophen 500 MG Tablet 1000 MG PO ×3 (05:10→20:12)
[2020-10-22] MEDS: amLODIPine 5 MG Tablet PO (05:10)
[2020-10-22] MEDS: Pantoprazole Sodium 20 MG Tablet PO ×2 (05:10→17:58)
[2020-10-22] MEDS: Senna/Docusate Sodium 1 Tablet PO ×2 (05:10→17:59)
[2020-10-22 05:11] VITALS: BP 104/64; PULSE 78; RESP 17; TEMP 36.5; O2SAT 91
[2020-10-22] MEDS: Metoprolol Tartrate 50 MG Tablet PO ×2 (05:11→17:58)
[2020-10-22] MEDS: Polyethylene Glycol 3350 17 GM PACKET PO (05:12)
[2020-10-22] MEDS: Nystatin Powder 15gm Bottle 1 APPLIC TOPICAL ×2 (05:15→18:28)
[2020-10-22 05:46] LABS: Hematocrit 29.3 % (37-47); POSITIVE COUNT YES
--- NOTE | 2020-10-22 06:23 | NURSING ---
cath pulled. Pt incont of large amount of green stool
[2020-10-22] MEDS: Multivitamins,Ther W-Minerals Tablet 1 TABLET PO (08:35)
[2020-10-22] MEDS: Calcium (Elemental) 500 MG Tablet PO ×2 (08:35→17:57)
[2020-10-22] MEDS: Potassium Chloride Oral Tablet 20 MEQ PO (08:36)
[2020-10-22] MEDS: Ferrous Sulfate 325 MG Tablet PO (08:36)
[2020-10-22 10:00] VITALS: PULSE 73; O2SAT 93
--- NOTE | 2020-10-22 13:32 | CASEMGMT ---
Social Work IDT met with patient and son via conference call for care plan meeting. Discussed patient's progress in therapy and nursing. ST continues to work on cognitive deficits. Monitoring pt's appetite. Explained [employer] insurance with NRD 10/21 and continued stay is not guaranteed. The goal is for pt to return to [facility]. Son stated he did provide HCPOA paperwork. SW to continue to follow. Nisreen Lewis, EXPANDED FUNCTION DENTAL ASSISTANT EYELET CUTTER
[2020-10-22 14:10] VITALS: BP 108/56; PULSE 75; RESP 16; TEMP 36.4; O2SAT 95
--- NOTE | 2020-10-22 14:54 | NURSING ---
Called family to update no answer let a message.
[2020-10-22 17:58] VITALS: BP 117/53; PULSE 85
[2020-10-22] MEDS: oxyCODONE 5 MG Tablet 2.5 MG PO (20:11)
[2020-10-22] MEDS: Atorvastatin Calcium 40 MG Tablet PO (20:12)
[2020-10-23 03:31] VITALS: BP 144/66; PULSE 83
[2020-10-23] MEDS: Acetaminophen 500 MG Tablet 1000 MG PO ×3 (03:31→20:29)
[2020-10-23] MEDS: Pantoprazole Sodium 20 MG Tablet PO ×2 (03:31→18:08)
[2020-10-23] MEDS: amLODIPine 5 MG Tablet PO (03:31)
[2020-10-23] MEDS: Polyethylene Glycol 3350 17 GM PACKET PO (03:31)
[2020-10-23] MEDS: Metoprolol Tartrate 50 MG Tablet PO ×2 (03:31→18:07)
[2020-10-23] MEDS: Lisinopril 5 MG Tablet PO ×2 (03:31→18:08)
[2020-10-23] MEDS: Menthol/Lanolin/Calamine/Znox 113 GM Tube 1 APPLIC TOPICAL ×2 (03:32→18:08)
[2020-10-23] MEDS: Nystatin Powder 15gm Bottle 1 APPLIC TOPICAL ×2 (03:32→19:42)
[2020-10-23] MEDS: Senna/Docusate Sodium 1 Tablet PO ×2 (03:37→18:08)
[2020-10-23] MEDS: Escitalopram Oxalate 20 MG Tablet PO (03:38)
[2020-10-23] MEDS: Ferrous Sulfate 325 MG Tablet PO (08:57)
[2020-10-23] MEDS: Potassium Chloride Oral Tablet 20 MEQ PO (08:57)
[2020-10-23] MEDS: Multivitamins,Ther W-Minerals Tablet 1 TABLET PO (08:57)
[2020-10-23] MEDS: Calcium (Elemental) 500 MG Tablet PO ×2 (08:57→18:08)
--- NOTE | 2020-10-23 13:49 | MDS.RN ---
Completed pain interview for JENNIFER 10/25/20
--- NOTE | 2020-10-23 14:14 | NURSING ---
Armando Bonilla from Dr. Burdick's office he will be coming to the floor 10/29 on his lunch break to remove sandi. If pt discharges prior to him coming up we need to call and set up appt for her to go to his office.
[2020-10-23 15:16] VITALS: BP 111/53; PULSE 69; RESP 14; TEMP 36.3; O2SAT 93
[2020-10-23 18:07] VITALS: BP 121/63; PULSE 85
[2020-10-23] MEDS: Atorvastatin Calcium 40 MG Tablet PO (20:29)
[2020-10-24 03:42] VITALS: BP 136/53; PULSE 91; RESP 18; TEMP 36.2; O2SAT 86
--- NOTE | 2020-10-24 03:43 | NURSING ---
po 86% on ra. 02 at 3lnc applied
[2020-10-24] MEDS: amLODIPine 5 MG Tablet PO (04:47)
[2020-10-24] MEDS: Menthol/Lanolin/Calamine/Znox 113 GM Tube 1 APPLIC TOPICAL ×2 (04:47→18:04)
[2020-10-24 04:48] VITALS: BP 144/71; PULSE 88
[2020-10-24] MEDS: Metoprolol Tartrate 50 MG Tablet PO ×2 (04:48→18:04)
[2020-10-24] MEDS: Senna/Docusate Sodium 1 Tablet PO (04:48)
[2020-10-24] MEDS: Polyethylene Glycol 3350 17 GM PACKET PO (04:48)
[2020-10-24] MEDS: Escitalopram Oxalate 20 MG Tablet PO (04:49)
[2020-10-24] MEDS: Nystatin Powder 15gm Bottle 1 APPLIC TOPICAL ×2 (04:49→18:04)
[2020-10-24] MEDS: Pantoprazole Sodium 20 MG Tablet PO ×2 (04:49→18:04)
[2020-10-24] MEDS: Acetaminophen 500 MG Tablet 1000 MG PO ×3 (04:49→21:02)
[2020-10-24] MEDS: Lisinopril 5 MG Tablet PO ×2 (04:52→18:04)
[2020-10-24 06:23] VITALS: PULSE 71; RESP 16; O2SAT 93
--- NOTE | 2020-10-24 06:23 | NURSING ---
observed pt to be a mouth breather when sleeping, resp even and unlabored at this time. po 93% on 02 at 3lnc
[2020-10-24] MEDS: Ferrous Sulfate 325 MG Tablet PO (08:43)
[2020-10-24] MEDS: Potassium Chloride Oral Tablet 20 MEQ PO (08:43)
[2020-10-24] MEDS: Multivitamins,Ther W-Minerals Tablet 1 TABLET PO (08:43)
[2020-10-24] MEDS: Calcium (Elemental) 500 MG Tablet PO ×2 (08:44→18:04)
[2020-10-24 10:00] VITALS: PULSE 72; RESP 18; O2SAT 94
[2020-10-24 13:54] VITALS: BP 104/41; PULSE 77; RESP 14; TEMP 36.8; O2SAT 93
--- NOTE | 2020-10-24 14:59 | CASEMGMT ---
Social Work BIMS and PHQ-9 completed for MDS assessment. Nisreen Lewis, MARRIAGE COUNSELOR MANUFACTURING OPERATIONS MANAGER
[2020-10-24 18:04] VITALS: PULSE 78
[2020-10-24] MEDS: Atorvastatin Calcium 40 MG Tablet PO (21:01)
--- NOTE | 2020-10-24 23:05 | NURSING ---
DRAINAGE INSPECTOR CHECKED ON PT PT RANG OUT AND SAID HER DEPENDS WAS WET. DRAINAGE INSPECTOR NOTIFIED THIS NURSE BECAUSE SHE FELT PT SEEMED VERY CONFUSED. WENT TO CHECK ON PT. BP 140/44, HR 77, RR 16, 78% ON RA. 02 @ 3L N/C APPLIED. PULSE OX CAME UP TO 84%. INCREASED 02 TO 5L N/C. 91-92%. PT ENCOURAGED TO TAKE DEEP BREATHS THROUGH HER NOSE. PT DENIES C/O PAIN OR SOB. PT IS SLEEPY BUT DOES FOLLOW COMMAND. 02 @ 5L N/C, WILL CONTINUE TO MONITOR
--- NOTE | 2020-10-25 00:09 | NURSING ---
2315: RECHECKED PULSE OX ON 5 L N/C WHILE PT ASLEEP AND NOTED AT 88-91%. INCREASED TO 6L N/C. PULSE OX RANGE 89-90%. PAGED RT AND PLACED ON VENTI MASK PT IS NOTED TO BE A MOUTH BREATHER WHILE ASLEEP. PT SLEEPY BUT AROUSABLE AND DENIED C/O PAIN OR SOB. CONTINUES TO FOLLOW COMMANDS.
[2020-10-25 05:38] VITALS: BP 128/56; PULSE 78; RESP 15; TEMP 36.7; O2SAT 93
[2020-10-25 05:42] VITALS: BP 128/56; PULSE 78
[2020-10-25] MEDS: Acetaminophen 500 MG Tablet 1000 MG PO ×3 (05:42→23:53)
[2020-10-25] MEDS: Lisinopril 5 MG Tablet PO ×2 (05:42→18:22)
[2020-10-25] MEDS: Pantoprazole Sodium 20 MG Tablet PO ×2 (05:42→18:22)
[2020-10-25] MEDS: Metoprolol Tartrate 50 MG Tablet PO (05:42)
[2020-10-25] MEDS: Senna/Docusate Sodium 1 Tablet PO ×2 (05:42→18:25)
[2020-10-25] MEDS: Escitalopram Oxalate 20 MG Tablet PO (05:42)
[2020-10-25] MEDS: amLODIPine 5 MG Tablet PO (05:42)
[2020-10-25] MEDS: Polyethylene Glycol 3350 17 GM PACKET PO (05:43)
[2020-10-25] MEDS: Menthol/Lanolin/Calamine/Znox 113 GM Tube 1 APPLIC TOPICAL ×2 (05:43→18:23)
[2020-10-25] MEDS: Nystatin Powder 15gm Bottle 1 APPLIC TOPICAL ×2 (05:53→18:23)
[2020-10-25] MEDS: Ferrous Sulfate 325 MG Tablet PO (08:30)
[2020-10-25] MEDS: Multivitamins,Ther W-Minerals Tablet 1 TABLET PO (08:30)
[2020-10-25] MEDS: Calcium (Elemental) 500 MG Tablet PO ×2 (08:31→18:24)
[2020-10-25] MEDS: Potassium Chloride Oral Tablet 20 MEQ PO (08:31)
[2020-10-25 13:56] VITALS: BP 99/45; PULSE 82; RESP 18; TEMP 36.3; O2SAT 94
[2020-10-25 18:34] VITALS: BP 104/45
--- NOTE | 2020-10-25 23:45 | NURSING ---
Pt agitated when this nurse, EARTH MOVING MACHINE OPERATOR, and MOBILE MARKETING SPECIALIST in room. Refusing to take Lipitor and is hesitant to take scheduled Tylenol. Able to complete part of physical assessment d/t agitation reflected in documentation.
[2020-10-26] MEDS: Menthol/Lanolin/Calamine/Znox 113 GM Tube 1 APPLIC TOPICAL ×2 (05:09→18:06)
[2020-10-26] MEDS: Nystatin Powder 15gm Bottle 1 APPLIC TOPICAL ×2 (05:09→18:06)
[2020-10-26 05:20] VITALS: BP 108/49; PULSE 94
[2020-10-26] MEDS: Metoprolol Tartrate 50 MG Tablet PO ×2 (05:20→18:01)
[2020-10-26] MEDS: Pantoprazole Sodium 20 MG Tablet PO ×2 (05:20→18:01)
--- NOTE | 2020-10-26 05:20 | NURSING ---
Pt irritable and resistant when taking am meds. Refuses to have this nurse crush pills and chews them when mixed w/ pudding. Insistes she should be speaking w/ her son or daughter, Diya, if medications have been approved. Informed pt medications ordered are not new and family is aware of plan of care. O2 reapplied at 3 lpm via nc as cannula was out of place upon arrival of this nurse into room.
[2020-10-26] MEDS: Lisinopril 5 MG Tablet PO ×2 (05:21→18:01)
[2020-10-26] MEDS: Acetaminophen 500 MG Tablet 1000 MG PO ×3 (05:21→20:52)
[2020-10-26] MEDS: Escitalopram Oxalate 20 MG Tablet PO (05:22)
[2020-10-26] MEDS: amLODIPine 5 MG Tablet PO (05:22)
[2020-10-26] MEDS: Senna/Docusate Sodium 1 Tablet PO ×2 (05:23→18:01)
[2020-10-26] MEDS: Polyethylene Glycol 3350 17 GM PACKET PO (05:25)
[2020-10-26 06:21] LABS: Absolute Neutrophil Count 7.9 X10^3/uL (2.0-7.7); Basophil# 0.04 X10^3/uL; Basophil% 0.4 % (0-1); Eosinophil# 0.21 X10^3/uL; Eosinophils% 2.1 % (0-5); Hematocrit 29.3 % (37-47); Lymphocyte % 10.1 % (19-41); Mean Corp Hgb Conc 30.7 g/dL (32-36); Mean Corpuscular Hgb 30.5 pg (27.0-32.0); Mean Corpuscular Volume 99.3 fL (81-99); Mean Platelet Vol. 11.6 fl (6.2-12.0); Monocyte# 0.66 X10^3/uL; Monocyte% 6.7 % (0-10); NRBC Flagged by Analyzer 0.3 % (0-5); Neutrophil # 7.85 X10^3/uL (2.7-7.7); Neutrophil % 79.3 % (47-70); POSITIVE MORPHOLOGY YES; Platelet Count 139 K/mm3 (150-450); RBC Distribution Width CV 22.9 % (11.6-14.6); RBC Distribution Width SD 80.5 fl (35.1-43.9); Red Blood Count 2.95 M/mm3 (4.2-5.4); White Blood Count 9.9 K/mm3 (4.4-11.0)
[2020-10-26 06:36] LABS: Differential Indicated SCAN CRITERIA MET
[2020-10-26 06:55] LABS: Anisocytosis 1+; Differential Comment SCANNED; Macrocytosis 1+; Microcytosis RARE
[2020-10-26 06:56] LABS: Anion Gap 5 (5-15); BUN 25 mg/dL (7-18); BUN/Creat Ratio 36.1 RATIO (10-20); Calcium,Total 8.8 mg/dL (8.5-10.1); Chloride 107 mmol/L (98-107); Creatinine, Serum 0.69 mg/dL (0.55-1.02); EST Glomerular Filtration Rate 85 mL/min (>60); Est Glom Filt Rate - Afr Amer 103 mL/min (>60); Estimated Creatinine Clearance 35.52 ml/min; Glucose 104 mg/dL (74-106); Polychromasia RARE; Potassium 4.2 mmol/L (3.5-5.1); Sodium Level 141 mmol/L (136-145)
[2020-10-26] MEDS: Ferrous Sulfate 325 MG Tablet PO (09:21)
[2020-10-26] MEDS: Potassium Chloride Oral Tablet 20 MEQ PO (09:21)
[2020-10-26] MEDS: Calcium (Elemental) 500 MG Tablet PO ×2 (09:21→18:50)
[2020-10-26] MEDS: Multivitamins,Ther W-Minerals Tablet 1 TABLET PO (09:22)
[2020-10-26] MEDS: Tuberculin,Purif.prot.deriv. 50 TU/ML Vial 5 ML ID (09:37)
[2020-10-26 09:51] VITALS: PULSE 76; RESP 18; O2SAT 93
[2020-10-26 15:21] VITALS: BP 133/77; PULSE 85; RESP 16; TEMP 36.5; O2SAT 94
[2020-10-26 18:01] VITALS: PULSE 85
[2020-10-26] MEDS: Atorvastatin Calcium 40 MG Tablet PO (20:53)
[2020-10-27 05:13] VITALS: BP 122/51; PULSE 73; RESP 18; TEMP 36.8; O2SAT 95
[2020-10-27 06:02] VITALS: PULSE 73
[2020-10-27] MEDS: Acetaminophen 500 MG Tablet 1000 MG PO ×3 (06:02→20:15)
[2020-10-27] MEDS: Polyethylene Glycol 3350 17 GM PACKET PO (06:02)
[2020-10-27] MEDS: Metoprolol Tartrate 50 MG Tablet PO ×2 (06:02→17:35)
[2020-10-27] MEDS: Escitalopram Oxalate 20 MG Tablet PO (06:03)
[2020-10-27] MEDS: Lisinopril 5 MG Tablet PO ×2 (06:03→17:35)
[2020-10-27] MEDS: Nystatin Powder 15gm Bottle 1 APPLIC TOPICAL ×2 (06:03→17:34)
[2020-10-27] MEDS: Pantoprazole Sodium 20 MG Tablet PO (06:03)
[2020-10-27] MEDS: amLODIPine 5 MG Tablet PO (06:03)
[2020-10-27] MEDS: Menthol/Lanolin/Calamine/Znox 113 GM Tube 1 APPLIC TOPICAL ×2 (06:03→17:35)
[2020-10-27 07:06] VITALS: O2SAT 94
[2020-10-27] MEDS: Multivitamins,Ther W-Minerals Tablet 1 TABLET PO (08:43)
[2020-10-27] MEDS: Ferrous Sulfate 325 MG Tablet PO (08:43)
[2020-10-27] MEDS: Calcium (Elemental) 500 MG Tablet PO ×2 (08:44→17:35)
[2020-10-27] MEDS: Potassium Chloride Oral Tablet 20 MEQ PO (08:44)
[2020-10-27] MEDS: Famotidine 20 MG Tablet PO (11:27)
--- NOTE | 2020-10-27 11:34 | NURSING ---
removed oxygen, pt sat 97% on 2 liters, maintained 97% on Rm air. pt sitting in recliner chair, legs elevated. call light in reach. pleasant, took medication with chocolate pudding. call light in reach.
[2020-10-27 13:26] VITALS: BP 95/36; PULSE 57; RESP 16; TEMP 36.5; O2SAT 96
[2020-10-27 17:35] VITALS: BP 110/38; PULSE 82
[2020-10-27] MEDS: Senna/Docusate Sodium 1 Tablet PO (17:35)
--- NOTE | 2020-10-27 17:58 | NURSING ---
assisted pt to BR x2 w/walker. pt voided in toilet, urine quite cloudy. pt confusion continues with no improvement. attends dry. dr mccarty updated, new order for UA C&S. pt & family updated.
[2020-10-27 19:44] LABS: Color, Urine Yellow (Yellow); Glucose, Dipstick Normal (Normal); Ketone-Dipstick Negative (Negative); Leukocyte Esterase-Dipstick 500 /ul (Negative); Nitrite-Dipstick Positive (Negative); Occult Blood-Urine 150 /ul (Negative); Protein-Dipstick 30 mg/dl (Negative); Specific Gravity, Urine 1.015 (1.002-1.030); Urine Bilirubin Dipstick Negative (Negative); Urine Clarity Cloudy (Clear); Urine Urobilinogen Normal (Normal)
[2020-10-27 19:45] LABS: Mucous, Urine 0 SEEN /hpf (<or=2+); Squamous Epithelial Cells - UA 0 SEEN /hpf (5-10)
[2020-10-27 19:51] LABS: White Blood Cells >100 SEEN /hpf (0-5)
[2020-10-27 19:52] LABS: Bacteria 2+ /hpf (None Seen); Red Blood Cells-Urine 10-25 SEEN /hpf (0-5)
[2020-10-27] MEDS: Atorvastatin Calcium 40 MG Tablet PO (20:14)
[2020-10-27] MEDS: CEFUROXIME AXETIL 250 MG TABLET 500 MG PO (20:16)
[2020-10-28 05:00] VITALS: BP 129/59; PULSE 93; RESP 16; TEMP 37.2; O2SAT 97
[2020-10-28] MEDS: Escitalopram Oxalate 20 MG Tablet PO (06:52)
[2020-10-28 06:53] VITALS: BP 129/59; PULSE 93
[2020-10-28] MEDS: Famotidine 20 MG Tablet PO (06:53)
[2020-10-28] MEDS: Acetaminophen 500 MG Tablet 1000 MG PO ×2 (06:53→20:17)
[2020-10-28] MEDS: Senna/Docusate Sodium 1 Tablet PO ×2 (06:53→17:53)
[2020-10-28] MEDS: Metoprolol Tartrate 50 MG Tablet PO ×2 (06:53→17:53)
[2020-10-28] MEDS: Lisinopril 5 MG Tablet PO ×2 (06:53→17:55)
[2020-10-28] MEDS: CEFUROXIME AXETIL 250 MG TABLET 500 MG PO ×2 (06:53→17:53)
[2020-10-28] MEDS: amLODIPine 5 MG Tablet PO (06:53)
[2020-10-28] MEDS: Polyethylene Glycol 3350 17 GM PACKET PO (07:03)
[2020-10-28] MEDS: Nystatin Powder 15gm Bottle 1 APPLIC TOPICAL ×2 (07:04→17:55)
[2020-10-28] MEDS: Menthol/Lanolin/Calamine/Znox 113 GM Tube 1 APPLIC TOPICAL ×2 (07:04→17:55)
[2020-10-28] MEDS: Calcium (Elemental) 500 MG Tablet PO ×2 (08:36→17:53)
[2020-10-28] MEDS: Multivitamins,Ther W-Minerals Tablet 1 TABLET PO (08:36)
[2020-10-28] MEDS: Ferrous Sulfate 325 MG Tablet PO (08:36)
[2020-10-28 09:22] VITALS: PULSE 72; O2SAT 100
--- NOTE | 2020-10-28 10:10 | PT ---
When seated and rested, pt's SPO2 was 100% while on 2L of O2. With activity, pt's SPO2 decreased to 93% while on 2L of O2. At rest, while on room air, pt's SPO2 was 93% and with activity decreased to 89%. Pt was unable to recover to above 90% while on room air and was returned to 2L of O2. Her SPO2 recovered to 96% once on 2L of O2.
[2020-10-28 10:48] VITALS: O2SAT 100
[2020-10-28 13:48] VITALS: BP 99/59; PULSE 73; RESP 17; TEMP 36.1; O2SAT 97
[2020-10-28 17:53] VITALS: BP 112/47; PULSE 103
[2020-10-28] MEDS: Atorvastatin Calcium 40 MG Tablet PO (20:17)
--- NOTE | 2020-10-28 23:47 | NURSING ---
pt had there legs out of bed. 02 off and pt confused ox1 name only. Pt put on bed [place] and depends cleaned up with help interior horticulturist.O2 reapplied
[2020-10-29 04:09] VITALS: BP 104/40; PULSE 72; RESP 17; TEMP 36.1; O2SAT 92
[2020-10-29] MEDS: Polyethylene Glycol 3350 17 GM PACKET PO (04:11)
[2020-10-29 04:12] VITALS: BP 104/40; PULSE 72
[2020-10-29] MEDS: Metoprolol Tartrate 50 MG Tablet PO ×2 (04:12→17:45)
[2020-10-29] MEDS: Famotidine 20 MG Tablet PO (04:12)
[2020-10-29] MEDS: CEFUROXIME AXETIL 250 MG TABLET 500 MG PO ×2 (04:12→17:45)
[2020-10-29] MEDS: Escitalopram Oxalate 20 MG Tablet PO (04:13)
[2020-10-29] MEDS: Lisinopril 5 MG Tablet PO ×2 (04:13→17:45)
[2020-10-29] MEDS: Menthol/Lanolin/Calamine/Znox 113 GM Tube 1 APPLIC TOPICAL ×2 (04:13→17:46)
[2020-10-29] MEDS: Acetaminophen 500 MG Tablet 1000 MG PO ×3 (04:13→20:15)
[2020-10-29] MEDS: Nystatin Powder 15gm Bottle 1 APPLIC TOPICAL ×2 (04:13→17:46)
[2020-10-29] MEDS: Senna/Docusate Sodium 1 Tablet PO ×2 (04:13→17:45)
[2020-10-29] MEDS: amLODIPine 5 MG Tablet PO (04:13)
[2020-10-29 07:33] VITALS: O2SAT 94
--- NOTE | 2020-10-29 08:11 | MDS.RN ---
Information for the mds was obtained from review of the clinical record, interview of resident, staff, and direct observation of resident's care.
[2020-10-29] MEDS: Ferrous Sulfate 325 MG Tablet PO (08:32)
[2020-10-29] MEDS: Calcium (Elemental) 500 MG Tablet PO ×2 (08:32→17:45)
[2020-10-29] MEDS: Multivitamins,Ther W-Minerals Tablet 1 TABLET PO (08:32)
--- NOTE | 2020-10-29 09:23 | NURSING ---
Received call from Dr. Burdick's office, spoke with Helena. Dr. Burdick ordered nursing to remove sandi, he will be in at 11 am to see patient.
[2020-10-29] MEDS: Acetaminophen 325 MG Tablet 650 MG PO (11:01)
--- NOTE | 2020-10-29 11:39 | NURSING ---
Dr Burdick in to see pt. Some sandi removed put d/t some separation of incision, Dr. Burdick said to leave remaining sandi until 11/03. pt is to have daily cleaning with antibiotic cleanser and apply abd daily.
--- NOTE | 2020-10-29 11:50 | PCM.PN.ORT ---
Patient Problems: Active and Suspected Problems (Last Updated 10/28/20 @ 11:03 by Alisia Mccullough) Urinary retention (Acute) Patient was placed on Flomax on 10/18/2020 Debility (Acute) Closed left hip fracture (Acute) Postoperative anemia (Acute) Encephalopathy (Acute) Subjective: seen and examined and doing well. Denies pain, admits to ambulating, although i sence some confusion. - Physical Exam Vitals/I&O's: Vital Signs Temp Pulse Resp BP Pulse Ox 96.9 F L 72 17 104/40 L 94 10/29/20 04:09 10/29/20 04:12 10/29/20 04:09 10/29/20 04:12 10/29/20 07:33 Oxygen Flow Rate (L/min) 2 Oxygen Delivery Method Nasal Cannula Weight: 134 lb 7 oz Body Mass Index (BMI) 23.3 Intake and Output for Last 24 Hours 10/27/20 10/28/20 10/29/20 23:59 23:59 23:59 Intake Total 600 / 600 360 / 360 160 / 160 Balance 600 / 600 360 / 360 160 / 160 General: Cooperative, No apparent distress Extremities: - - Left hip incision without sign of infection. some sandi removed with smal superficial dehisence so some left in place, there is ecchymosis. compartments soft. Microbiology Past 72 Hours 10/27/20 18:50 Urine, Catheterized Urine Culture - Final Presumptive E. coli Current Medications Acetaminophen (Acetaminophen 500 Mg Tablet) 1,000 mg PO Q8 [facility] Last Admin: 10/29/20 04:13 Dose: 1,000 mg Documented by: Acetaminophen (Acetaminophen 325 Mg Tablet) 650 mg PO Q6H PRN PRN PRN Reason: Pain Score 1-5 Last Admin: 10/29/20 11:01 Dose: 650 mg Documented by: Amlodipine Besylate (Amlodipine 5 Mg Tablet) 5 mg PO DAILY [facility] Last Admin: 10/29/20 04:13 Dose: 5 mg Documented by: Atorvastatin Calcium (Atorvastatin Calcium 40 Mg Tablet) 40 mg PO QHS [facility] Last Admin: 10/28/20 20:17 Dose: 40 mg Documented by: Bisacodyl (Bisacodyl 5 Mg Tablet) 10 mg PO DAILY PRN PRN Reason: Constipation Calamine/Phenol (Menthol/Lanolin/Calamine/Znox 113 Gm Tube) 1 applic TOPICAL BID [facility]; Protocol Last Admin: 10/29/20 04:13 Dose: 1 applicatio Documented by: Calcium Carbonate (Calcium (Elemental) 500 Mg Tablet) [facility] Last Admin: 10/29/20 08:32 Dose: 500 mg Documented by: Cefuroxime Axetil (Cefuroxime Axetil 250 Mg Tablet) 500 mg PO Q12 [facility] Stop: 11/04/20 06:01 Last Admin: 10/29/20 04:12 Dose: 500 mg Documented by: Cholecalciferol (Cholecalciferol (Vit D3) 1,000 Unit (25mcg)) 2,000 unit PO DAILY [facility] Last Admin: 10/29/20 04:14 Dose: 2,000 mcg Documented by: Escitalopram Oxalate (Escitalopram Oxalate 20 Mg Tablet) 20 mg PO DAILY [facility] Last Admin: 10/29/20 04:13 Dose: 20 mg Documented by: Famotidine (Famotidine 20 Mg Tablet) 20 mg PO DAILY [facility] Last Admin: 10/29/20 04:12 Dose: 20 mg Documented by: Ferrous Sulfate (Ferrous Sulfate 325 Mg Tablet) [facility] Last Admin: 10/29/20 08:32 Dose: 325 mg Documented by: Lisinopril (Lisinopril 5 Mg Tablet) 5 mg PO BID [facility] Last Admin: 10/29/20 04:13 Dose: 5 mg Documented by: Magnesium Hydroxide (Magnesium Hydroxide 30 Ml Udc) 30 ml PO DAILY PRN PRN Reason: Constipation Metoprolol Tartrate (Metoprolol Tartrate 50 Mg Tablet) 50 mg PO BID [facility] Last Admin: 10/29/20 04:12 Dose: 50 mg Documented by: Multivitamins/Minerals (Multivitamins,Ther W-Minerals Tablet) 1 tablet PO DAILY@0800 [facility] Last Admin: 10/29/20 08:32 Dose: 1 tablet Documented by: Nutritional Formula (Lactose Free) (Ensure Enlive 120 Ml Liquid) 120 ml PO 4X/DAY [facility] Last Admin: 10/29/20 04:11 Dose: 120 ml Documented by: Nystatin (Nystatin Powder 15gm Bottle) 1 applic TOPICAL BID [facility]; Protocol Last Admin: 10/29/20 04:13 Dose: 1 applicatio Documented by: Ondansetron HCl (Ondansetron Odt 4 Mg Tablet) 4 mg PO Q8H PRN PRN PRN Reason: NAUSEA Oxycodone HCl (Oxycodone 5 Mg Tablet) 2.5 mg PO Q6H PRN PRN PRN Reason: Pain Score 6-10 Last Admin: 10/22/20 20:11 Dose: 2.5 mg Documented by: Polyethylene Glycol (Polyethylene Glycol 3350 17 Gm Packet) 17 gm PO DAILY [facility] Last Admin: 10/29/20 04:11 Dose: 17 gm Documented by: Senna/Docusate Sodium (Senna/Docusate Sodium 1 Tablet) 1 tablet PO BID [facility] Last Admin: 10/29/20 04:13 Dose: 1 tablet Documented by: Medical Necessity - Tobacco Use Smoking Status: Never smoker Tobacco Use: Non-smoker Assessment/Plan All Active Problems (Last Updated 10/28/20 @ 11:03 by Alisia Mccullough) Dizziness and giddiness (Acute) Syncope and collapse (Acute) Hip fracture, left (Acute) CHF (congestive heart failure) (Acute) Urinary retention (Acute) Debility (Acute) Closed left hip fracture (Acute) Postoperative anemia (Acute) Encephalopathy (Acute) Anemia (Acute) Cancer of skin of back (Resolved) history of ischemic stroke (Resolved) s/p Left hip hemiarthroplasty 2 wk post op remove remaining sandi this upcoming tuesday. PT/ OT WBAT f/u in office in 4 weeks.
[2020-10-29 13:37] VITALS: BP 98/50; PULSE 72; RESP 17; TEMP 36.4; O2SAT 97
--- NOTE | 2020-10-29 16:24 | NURSING ---
Surgical incision site cleaned with Georgina-hex and covered with ABD per orders.
[2020-10-29 17:45] VITALS: PULSE 96
[2020-10-29 20:05] VITALS: PULSE 65; RESP 16; O2SAT 94
[2020-10-29] MEDS: Atorvastatin Calcium 40 MG Tablet PO (20:16)
[2020-10-30] MEDS: Polyethylene Glycol 3350 17 GM PACKET PO (04:17)
[2020-10-30 04:18] VITALS: BP 113/57; PULSE 71
[2020-10-30] MEDS: CEFUROXIME AXETIL 250 MG TABLET 500 MG PO ×2 (04:18→18:07)
[2020-10-30] MEDS: Metoprolol Tartrate 50 MG Tablet PO ×2 (04:18→18:08)
[2020-10-30] MEDS: Famotidine 20 MG Tablet PO (04:23)
[2020-10-30] MEDS: amLODIPine 5 MG Tablet PO (04:23)
[2020-10-30] MEDS: Senna/Docusate Sodium 1 Tablet PO ×2 (04:23→18:08)
[2020-10-30] MEDS: Escitalopram Oxalate 20 MG Tablet PO (04:23)
[2020-10-30] MEDS: Lisinopril 5 MG Tablet PO ×2 (04:23→18:07)
[2020-10-30] MEDS: Acetaminophen 500 MG Tablet 1000 MG PO ×3 (04:24→19:58)
[2020-10-30] MEDS: Nystatin Powder 15gm Bottle 1 APPLIC TOPICAL ×2 (04:37→18:08)
[2020-10-30] MEDS: Menthol/Lanolin/Calamine/Znox 113 GM Tube 1 APPLIC TOPICAL ×2 (04:38→18:09)
[2020-10-30 04:39] VITALS: BP 113/57; PULSE 71; RESP 16; TEMP 36.6; O2SAT 94
[2020-10-30 07:39] VITALS: O2SAT 94
[2020-10-30] MEDS: Ferrous Sulfate 325 MG Tablet PO (08:13)
[2020-10-30] MEDS: Multivitamins,Ther W-Minerals Tablet 1 TABLET PO (08:13)
[2020-10-30] MEDS: Calcium (Elemental) 500 MG Tablet PO ×2 (08:13→18:10)
--- NOTE | 2020-10-30 13:58 | CASEMGMT ---
Social Work Sent updated clinicals to [facility] to ensure return and inquired about memory care. Spoke with Marit[facility] and she is able to accept upon DC and states pt does not need memory care. Insurance NRD 10/31 and continued stay is not guaranteed. Will await outcome. Nisreen Lewis, CHAPERONE PRICING INTERN
[2020-10-30 13:59] VITALS: PULSE 85; RESP 16; O2SAT 94
[2020-10-30 14:04] VITALS: BP 121/51; PULSE 74; RESP 16; TEMP 37.2; O2SAT 95
[2020-10-30 18:08] VITALS: BP 112/45; PULSE 90
[2020-10-30] MEDS: Atorvastatin Calcium 40 MG Tablet PO (19:58)
[2020-10-31 01:55] VITALS: O2SAT 91
--- NOTE | 2020-10-31 02:19 | NURSING ---
PLACED ON 3L N/C. SPOT CHECKED 02 SATS ON RA WHILE PT SLEEPING. RA POX NOTED AT 76%. MAINTAINS SATS ON RA WHILE AWAKE BUT IS HYPOXIC ON RA WHEN IN DEEP SLEEP AT NIGHT
[2020-10-31 04:05] VITALS: BP 116/49; PULSE 66; RESP 15; TEMP 36.7; O2SAT 96
[2020-10-31] MEDS: Senna/Docusate Sodium 1 Tablet PO ×2 (05:53→18:00)
[2020-10-31] MEDS: Famotidine 20 MG Tablet PO (05:53)
[2020-10-31] MEDS: Lisinopril 5 MG Tablet PO ×2 (05:53→18:00)
[2020-10-31] MEDS: CEFUROXIME AXETIL 250 MG TABLET 500 MG PO ×2 (05:54→17:59)
[2020-10-31] MEDS: amLODIPine 5 MG Tablet PO (05:54)
[2020-10-31] MEDS: Acetaminophen 500 MG Tablet 1000 MG PO ×3 (05:54→21:33)
[2020-10-31] MEDS: Nystatin Powder 15gm Bottle 1 APPLIC TOPICAL ×2 (06:05→17:59)
[2020-10-31] MEDS: Menthol/Lanolin/Calamine/Znox 113 GM Tube 1 APPLIC TOPICAL ×2 (06:06→17:58)
[2020-10-31 06:07] VITALS: BP 116/49; PULSE 66
[2020-10-31] MEDS: Escitalopram Oxalate 20 MG Tablet PO (06:07)
[2020-10-31] MEDS: Metoprolol Tartrate 50 MG Tablet PO ×2 (06:07→17:59)
[2020-10-31] MEDS: Polyethylene Glycol 3350 17 GM PACKET PO (06:08)
[2020-10-31] MEDS: Calcium (Elemental) 500 MG Tablet PO ×2 (08:32→17:58)
[2020-10-31] MEDS: Multivitamins,Ther W-Minerals Tablet 1 TABLET PO (08:32)
[2020-10-31] MEDS: Ferrous Sulfate 325 MG Tablet PO (08:32)
--- NOTE | 2020-10-31 11:06 | PT ---
Pt was on room air when this WELFARE ELIGIBILITY WORKER entered room. Pt had previously been on 2L of O2. SPO2 was at 96% while on room air at rest. With activity SPO2 was between 92-95% while on room air. Reported to REPAIRER MAINTENANCE BUILDING.
--- NOTE | 2020-10-31 13:06 | CASEMGMT ---
Addendum entered by Nisreen Lewis 10/31/20 14:06: [facility] requesting w/c for pt. Ordered through [facility] [employer] Note: Social Work Spoke with pt's son, Melvin, that insurance approved NRD 11/05 and IDT setting DC date 11/07 to return to [facility]. Son agreeable. Son would like w/c transport scheduled. Scheduled through [facility] for 10am . No HHC or DME needs. Pt does have new O2 at 3L. Faxed referral to [facility]. Plan: DC to [facility] 11/07 with new O2 from [facility] Nisreen Lewis, FLOOR SWEEPER DIRECTOR MERIT SYSTEM
[2020-10-31 17:59] VITALS: BP 119/52; PULSE 84
[2020-10-31] MEDS: Magnesium Hydroxide 30 ML UDC PO (18:10)
--- NOTE | 2020-10-31 20:25 | NURSING ---
Pt calls verbalizing she is incontinent of urine. Feels bladder is emptied. Brief changed. Pericare performed. Calmoseptine applied to gluteal folds and Nystatin powder to b/l groin. Positioned for comfort. Bed in lowest position. SR up x3, for positioning. Call light w/ in reach.
[2020-10-31] MEDS: Atorvastatin Calcium 40 MG Tablet PO (21:33)
[2020-11-01 06:01] VITALS: BP 121/62; PULSE 77; RESP 16; TEMP 36.8; O2SAT 93
[2020-11-01] MEDS: Nystatin Powder 15gm Bottle 1 APPLIC TOPICAL ×2 (06:04→16:42)
[2020-11-01 06:05] VITALS: BP 121/62; PULSE 77
[2020-11-01] MEDS: Lisinopril 5 MG Tablet PO ×2 (06:05→16:40)
[2020-11-01] MEDS: Menthol/Lanolin/Calamine/Znox 113 GM Tube 1 APPLIC TOPICAL ×2 (06:05→16:42)
[2020-11-01] MEDS: Metoprolol Tartrate 50 MG Tablet PO ×2 (06:05→16:40)
[2020-11-01] MEDS: Polyethylene Glycol 3350 17 GM PACKET PO (06:05)
[2020-11-01] MEDS: amLODIPine 5 MG Tablet PO (06:05)
[2020-11-01] MEDS: Famotidine 20 MG Tablet PO (06:05)
[2020-11-01] MEDS: Escitalopram Oxalate 20 MG Tablet PO (06:05)
[2020-11-01] MEDS: Acetaminophen 500 MG Tablet 1000 MG PO ×3 (06:07→21:04)
[2020-11-01] MEDS: CEFUROXIME AXETIL 250 MG TABLET 500 MG PO ×2 (06:07→16:40)
[2020-11-01] MEDS: Senna/Docusate Sodium 1 Tablet PO ×2 (06:08→16:40)
[2020-11-01] MEDS: Cholecalciferol (VIT D3) 25 MCG TABLET (1,000 UNITS) 50 MCG PO (06:17)
[2020-11-01 08:45] VITALS: O2SAT 92
[2020-11-01] MEDS: Ferrous Sulfate 325 MG Tablet PO (09:00)
[2020-11-01] MEDS: Multivitamins,Ther W-Minerals Tablet 1 TABLET PO (09:01)
[2020-11-01] MEDS: Calcium (Elemental) 500 MG Tablet PO ×2 (09:02→16:41)
[2020-11-01] MEDS: Bisacodyl 5 MG Tablet 10 MG PO (09:04)
[2020-11-01 11:14] VITALS: PULSE 63; RESP 16; O2SAT 93
[2020-11-01 13:19] VITALS: BP 110/47; PULSE 82; RESP 16; TEMP 36.8; O2SAT 98
[2020-11-01 16:40] VITALS: PULSE 82
[2020-11-01] MEDS: Acetaminophen 325 MG Tablet 650 MG PO (18:28)
[2020-11-01] MEDS: Atorvastatin Calcium 40 MG Tablet PO (21:04)
[2020-11-02 06:30] VITALS: BP 125/46; PULSE 74; RESP 16; TEMP 36.6; O2SAT 98
[2020-11-02] MEDS: Menthol/Lanolin/Calamine/Znox 113 GM Tube 1 APPLIC TOPICAL ×2 (06:36→17:13)
[2020-11-02] MEDS: Cholecalciferol (VIT D3) 25 MCG TABLET (1,000 UNITS) 50 MCG PO (06:36)
[2020-11-02 06:37] VITALS: BP 125/46; PULSE 74
[2020-11-02] MEDS: Senna/Docusate Sodium 1 Tablet PO ×2 (06:37→17:13)
[2020-11-02] MEDS: Lisinopril 5 MG Tablet PO ×2 (06:37→17:13)
[2020-11-02] MEDS: Metoprolol Tartrate 50 MG Tablet PO ×2 (06:37→17:13)
[2020-11-02] MEDS: Acetaminophen 500 MG Tablet 1000 MG PO ×3 (06:37→21:11)
[2020-11-02] MEDS: CEFUROXIME AXETIL 250 MG TABLET 500 MG PO ×2 (06:37→17:12)
[2020-11-02] MEDS: amLODIPine 5 MG Tablet PO (06:37)
[2020-11-02] MEDS: Famotidine 20 MG Tablet PO (06:37)
[2020-11-02] MEDS: Escitalopram Oxalate 20 MG Tablet PO (06:38)
[2020-11-02] MEDS: Nystatin Powder 15gm Bottle 1 APPLIC TOPICAL ×2 (06:38→17:13)
[2020-11-02 07:08] LABS: Anion Gap 4 (5-15); BUN 21 mg/dL (7-18); BUN/Creat Ratio 32.4 RATIO (10-20); Calcium,Total 8.7 mg/dL (8.5-10.1); Chloride 108 mmol/L (98-107); Creatinine, Serum 0.65 mg/dL (0.55-1.02); EST Glomerular Filtration Rate 92 mL/min (>60); Est Glom Filt Rate - Afr Amer 112 mL/min (>60); Estimated Creatinine Clearance 35.52 ml/min; Glucose 88 mg/dL (74-106); Sodium Level 141 mmol/L (136-145)
[2020-11-02 07:32] VITALS: O2SAT 91
[2020-11-02] MEDS: Calcium (Elemental) 500 MG Tablet PO ×2 (08:23→17:13)
[2020-11-02] MEDS: Ferrous Sulfate 325 MG Tablet PO (08:23)
[2020-11-02] MEDS: Multivitamins,Ther W-Minerals Tablet 1 TABLET PO (08:23)
[2020-11-02 13:27] VITALS: BP 103/50; PULSE 63; RESP 16; TEMP 36.3; O2SAT 99
[2020-11-02 17:13] VITALS: PULSE 63
[2020-11-02] MEDS: Atorvastatin Calcium 40 MG Tablet PO (21:11)
[2020-11-02 22:36] LABS: Absolute Lymphocyte Count 1.03 X10^3/uL (0.83-4.51); Absolute Neutrophil Count 3.9 X10^3/uL (2.0-7.7); Basophil# 0.03 X10^3/uL; Basophil% 0.5 % (0-1); Eosinophil# 0.15 X10^3/uL; Eosinophils% 2.6 % (0-5); Hematocrit 29.6 % (37-47); Hemoglobin 8.8 g/dL (12.0-15.0); Lymphocyte # 1.03 X10^3/ul (4.0); Mean Corp Hgb Conc 29.7 g/dL (32-36); Mean Corpuscular Hgb 31.2 pg (27.0-32.0); Mean Platelet Vol. 12.3 fl (6.2-12.0); Monocyte# 0.51 X10^3/uL; Monocyte% 8.9 % (0-10); NRBC Flagged by Analyzer 0.5 % (0-5); Neutrophil # 3.92 X10^3/uL (2.7-7.7); Neutrophil % 68.4 % (47-70); POSITIVE MORPHOLOGY YES; Platelet Count 149 K/mm3 (150-450); RBC Distribution Width CV 24.7 % (11.6-14.6); RBC Distribution Width SD 93.1 fl (35.1-43.9); Red Blood Count 2.82 M/mm3 (4.2-5.4); White Blood Count 5.7 K/mm3 (4.4-11.0)
[2020-11-02 22:38] LABS: Differential Indicated SCAN CRITERIA MET
[2020-11-02 22:58] LABS: Differential Comment SCANNED
[2020-11-03 06:35] VITALS: BP 123/52; PULSE 65; RESP 16; TEMP 36.1; O2SAT 100
[2020-11-03 06:40] VITALS: PULSE 65
[2020-11-03] MEDS: Escitalopram Oxalate 20 MG Tablet PO (06:40)
[2020-11-03] MEDS: Metoprolol Tartrate 50 MG Tablet PO ×2 (06:40→17:30)
[2020-11-03] MEDS: Menthol/Lanolin/Calamine/Znox 113 GM Tube 1 APPLIC TOPICAL ×2 (06:40→17:31)
[2020-11-03] MEDS: CEFUROXIME AXETIL 250 MG TABLET 500 MG PO ×2 (06:40→17:30)
[2020-11-03] MEDS: Famotidine 20 MG Tablet PO (06:41)
[2020-11-03] MEDS: Lisinopril 5 MG Tablet PO ×2 (06:41→17:30)
[2020-11-03] MEDS: Cholecalciferol (VIT D3) 25 MCG TABLET (1,000 UNITS) 50 MCG PO (06:41)
[2020-11-03] MEDS: Acetaminophen 500 MG Tablet 1000 MG PO ×3 (06:41→20:22)
[2020-11-03] MEDS: amLODIPine 5 MG Tablet PO (06:41)
[2020-11-03] MEDS: Nystatin Powder 15gm Bottle 1 APPLIC TOPICAL ×2 (06:41→17:30)
[2020-11-03] MEDS: Senna/Docusate Sodium 1 Tablet PO ×2 (06:41→17:30)
[2020-11-03 07:20] VITALS: O2SAT 95
--- NOTE | 2020-11-03 08:09 | DCINST_ITS ---
- Discharge Diagnoses Current Active Problems: Current Active and Chronic Problems (Last Reviewed 10/30/20 @ 11:25 by Elham Patricio) Urinary retention (Acute) Patient was placed on Flomax on 10/18/2020 Debility (Acute) Closed left hip fracture (Acute) Postoperative anemia (Acute) Severe aortic stenosis (Chronic) Severe mitral valve stenosis (Chronic) Encephalopathy (Acute) Hypertension (Chronic) Coronary artery disease (Chronic) Vitamin D deficiency (Chronic) Depression (Chronic) Iron deficiency anemia (Chronic) Gastroesophageal reflux disease (Chronic) Cerebrovascular accident (Chronic) Hyperlipidemia (Chronic) Pulmonary HTN (Chronic) You will use the following diet at home:: No restrictions, Regular Your food should be the consistency of: Regular Your liquids should be the consistency of: Regular/Thin Discharge Activity: Return to Normal Activity, May Shower, Use Walker Weight Bearing Status: Weight bearing as tolerated Call your doctor if you observe: Fever of 101 or Higher, Inability to urinate, Inability to have a bowel movement, Shortness of breath, Chest pain, Uncontrolled pain Allergies/Adverse Reactions: Allergies buspirone [From BuSpar] Allergy (Unknown, Verified 10/30/20 11:14) Unknown cimetidine [From Tagamet] Allergy (Unknown, Verified 10/30/20 11:14) unknown Medications to take at Discharge Cholecalciferol (Vitamin D3) [Vitamin D3] 2,000 unit PO DAILY 03/27/20 Escitalopram Oxalate 20 mg PO DAILY 03/27/20 Amlodipine [Norvasc] 5 mg PO DAILY 10/14/20 Vit A/Vit C/Vit E/Zinc/Copper [Preservision Areds Softgel] 1 ea PO DAILY 10/14/20 Acetaminophen [Tylenol Tablet] 650 mg PO Q6H PRN PRN tab 10/18/20 Acetaminophen [Tylenol] 1,000 mg PO Q8 10/18/20 Calcium (Elemental) [Os-Young 500] 500 mg PO BIDCM 10/18/20 Lisinopril [Zestril] 5 mg PO BID 10/18/20 metoprolol tartrate 50 mg tablet 50 mg PO BID #180 tab 10/20/20 Atorvastatin Calcium [Lipitor] 40 mg PO QHS #30 tablet 11/03/20 Famotidine [Pepcid] 20 mg PO DAILY #30 tablet 11/03/20 Ferrous Sulfate 325 mg PO DAILY #30 tablet 11/03/20 Menthol/Lanolin/Calamine/Znox [Calmoseptine Ointment] 1 applic TOPICAL BID tube 11/03/20 Metoprolol Tartrate [Lopressor (beta trace)] 50 mg PO BID tablet 11/03/20 Nystatin Powder [Mycostatin Powder] 1 applic TOPICAL BID bottle 11/03/20 The following prescriptions were given: Ferrous Sulfate 325 mg PO DAILY #30 tablet Transmission Status: Pending to [facility] Atorvastatin Calcium [Lipitor] 40 mg PO QHS #30 tablet Transmission Status: Pending to [facility] Famotidine [Pepcid] 20 mg PO DAILY #30 tablet Transmission Status: Pending to [facility] Primary Care Physician: Johnny Harkins MD [Primary Care Provider] - Please follow up with your Primary Care Physician in: 1 week. Test Results: Test results from this visit will be discussed in further detail at your follow- up appointment, if applicable. Please Follow Up With: Werner Burdick DO When: 1 week. Please Follow Up With: Aj Clinton MD When: 2 weeks. Proposed Discharge Date: 11/07/20
--- NOTE | 2020-11-03 08:10 | PCM.DC.SUM ---
Discharge Date and Diagnosis - Problem List Patient Problems: Active and Suspected Problems (Last Reviewed 10/30/20 @ 11:25 by Elham Patricio) Urinary retention (Acute) Patient was placed on Flomax on 10/18/2020 Debility (Acute) Closed left hip fracture (Acute) Postoperative anemia (Acute) Encephalopathy (Acute) Date of Admission: 10/18/20 Date of Discharge: 11/07/20 - Primary Discharge Diagnosis Acute Problems: Active Problems (Last Reviewed 10/30/20 @ 11:25 by Elham Patricio) Urinary retention (Acute) Patient was placed on Flomax on 10/18/2020 Debility (Acute) Closed left hip fracture (Acute) Postoperative anemia (Acute) Encephalopathy (Acute) - Secondary Discharge Diagnosis Chronic Problems: Chronic Problems (Last Reviewed 10/30/20 @ 11:25 by Elham Patricio) Acute on chronic anemia (Chronic) Thrombocytopenia (Chronic) Anemia (Chronic) Blood loss anemia- acute-secondary to left hip fracture, required blood transfusion Osteoporosis (Chronic) Coronary artery disease-nonobstructive (Chronic) Suspected cognitive impairment (Chronic) Type unknown Severe aortic stenosis (Chronic) Severe mitral valve stenosis (Chronic) Hypertension (Chronic) Coronary artery disease (Chronic) Vitamin D deficiency (Chronic) Depression (Chronic) Iron deficiency anemia (Chronic) Gastroesophageal reflux disease (Chronic) Presence of permanent cardiac pacemaker (Chronic) Dual chamber pacemaker implant 10/19 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) Severe mitral stenosis per ECHO 10/15/20 Nonrheumatic aortic (valve) stenosis (Chronic) Severe Aortic stenosis per ECHO 10/15/20 Bilateral carotid bruits (Chronic) Essential hypertension (Chronic) Atherosclerotic heart disease of [place] coronary artery without angina pectoris (Chronic) Non Obstructive CAD per cath 2011 Palpitations (Chronic) Cerebrovascular accident (Chronic) Acute myocardial infarction (Chronic) Supraventricular tachycardia (Chronic) Atrioventricular block, complete (Chronic) Hyperlipidemia (Chronic) LVH (left ventricular hypertrophy) (Chronic) Pulmonary HTN (Chronic) Hospital Course and Treatment Imaging Results: 10/18/20 18:56 Diet: Regular - General Food consistency:: Regular Liquid Consistency:: Regular/Thin Is pt able to select menu?: No Labs (Last 48 Hours) 11/02/20 11/02/20 06:30 06:30 WBC 5.7 RBC 2.82 L Hgb 8.8 L Hct 29.6 L MCV 105.0 H MCH 31.2 MCHC 29.7 L RDW Std Deviation 93.1 H RDW Coeff of Kelly 24.7 H Plt Count 149 L MPV 12.3 H Immature Gran % (Auto) 1.600 H Neut % (Auto) 68.4 Lymph % (Auto) 18.0 L [place] % (Auto) 8.9 Eos % (Auto) 2.6 Baso % (Auto) 0.5 Absolute Neuts (auto) 3.9 Absolute Lymphs (auto) 1.03 Nucleated RBC % 0.5 Differential Comment SCANNED Sodium 141 Potassium 4.0 Chloride 108 H Carbon Dioxide 29.0 Anion Gap 4 L BUN 21 H Creatinine 0.65 Estim Creat Clear Calc 35.52 Est GFR (MDRD) Af Amer 112 Est GFR (MDRD) Non-Af 92 BUN/Creatinine Ratio 32.4 H Glucose 88 Calcium 8.7 Operations: None, - - Left hip hemiarthroplasty Procedures: None Summary of Care Provided: The patient is a 85 year old Female with below past medical history hospitalized for left hip fracture, underwent left hip hemiarthroplasty 10/15/2020 per Orthopedics, postoperative course complicated by postoperative anemia requiring transfusion, confusion secondary to underlying undiagnosed dementia, admitted to TCU with debility, here for rehabilitation, strengthening, [facility] Discharge to [facility] [facility] Patient Problems: Active and Suspected Problems (Last Reviewed 10/30/20 @ 11:25 by Elham Patricio) Urinary retention (Acute) Patient was placed on Flomax on 10/18/2020 Debility (Acute) Closed left hip fracture (Acute) Postoperative anemia (Acute) Encephalopathy (Acute) - Physical Exam Vitals/I&O's: Vital Signs Temp Pulse Resp BP Pulse Ox 97.0 F L 65 16 123/52 H 95 11/03/20 06:35 11/03/20 06:40 11/03/20 06:35 11/03/20 06:35 11/03/20 07:20 Oxygen Flow Rate (L/min) 2 Oxygen Delivery Method Nasal Cannula Weight: 60.98 kg Body Mass Index (BMI) 23.3 Intake and Output for Last 24 Hours 11/01/20 11/02/20 11/03/20 23:59 23:59 23:59 Intake Total 300 / 300 480 / 480 Balance 300 / 300 480 / 480 Laboratory Results 11/02/20 06:30: WBC 5.7, RBC 2.82 L, Hgb 8.8 L, Hct 29.6 L, MCV 105.0 H, MCH 31.2, MCHC 29.7 L, RDW Std Deviation 93.1 H, RDW Coeff of Kelly 24.7 H, Plt Count 149 L, MPV 12.3 H, Immature Gran % (Auto) 1.600 H, Neut % (Auto) 68.4, Lymph % (Auto) 18.0 L, [place] % (Auto) 8.9, Eos % (Auto) 2.6, Baso % (Auto) 0.5, Absolute Neuts (auto) 3.9, Absolute Lymphs (auto) 1.03, Nucleated RBC % 0.5, Differential Comment SCANNED Current Medications Acetaminophen (Acetaminophen 500 Mg Tablet) 1,000 mg PO Q8 [facility] Last Admin: 11/03/20 06:41 Dose: 1,000 mg Documented by: Acetaminophen (Acetaminophen 325 Mg Tablet) 650 mg PO Q6H PRN PRN PRN Reason: Pain Score 1-5 Last Admin: 11/01/20 18:28 Dose: 650 mg Documented by: Amlodipine Besylate (Amlodipine 5 Mg Tablet) 5 mg PO DAILY [facility] Last Admin: 11/03/20 06:41 Dose: 5 mg Documented by: Atorvastatin Calcium (Atorvastatin Calcium 40 Mg Tablet) 40 mg PO QHS [facility] Last Admin: 11/02/20 21:11 Dose: 40 mg Documented by: Bisacodyl (Bisacodyl 5 Mg Tablet) 10 mg PO DAILY PRN PRN Reason: Constipation Last Admin: 11/01/20 09:04 Dose: 10 mg Documented by: Calamine/Phenol (Menthol/Lanolin/Calamine/Znox 113 Gm Tube) 1 applic TOPICAL BID [facility]; Protocol Last Admin: 11/03/20 06:40 Dose: 1 applicatio Documented by: Calcium Carbonate (Calcium (Elemental) 500 Mg Tablet) 500 mg PO BIDCM [facility] Last Admin: 11/02/20 17:13 Dose: 500 mg Documented by: Cefuroxime Axetil (Cefuroxime Axetil 250 Mg Tablet) 500 mg PO Q12 [facility] Stop: 11/04/20 06:01 Last Admin: 11/03/20 06:40 Dose: 500 mg Documented by: Cholecalciferol (Cholecalciferol (Vit D3) 25 Mcg Tablet (1,000 Units)) 50 mcg PO DAILY [facility] Last Admin: 11/03/20 06:41 Dose: 50 mcg Documented by: Escitalopram Oxalate (Escitalopram Oxalate 20 Mg Tablet) 20 mg PO DAILY [facility] Last Admin: 11/03/20 06:40 Dose: 20 mg Documented by: Famotidine (Famotidine 20 Mg Tablet) 20 mg PO DAILY [facility] Last Admin: 11/03/20 06:41 Dose: 20 mg Documented by: Ferrous Sulfate (Ferrous Sulfate 325 Mg Tablet) 325 mg PO DAILYCM [facility] Last Admin: 11/02/20 08:23 Dose: 325 mg Documented by: Lisinopril (Lisinopril 5 Mg Tablet) 5 mg PO BID [facility] Last Admin: 11/03/20 06:41 Dose: 5 mg Documented by: Magnesium Hydroxide (Magnesium Hydroxide 30 Ml Udc) 30 ml PO DAILY PRN PRN Reason: Constipation Last Admin: 10/31/20 18:10 Dose: 30 ml Documented by: Metoprolol Tartrate (Metoprolol Tartrate 50 Mg Tablet) 50 mg PO BID [facility] Last Admin: 11/03/20 06:40 Dose: 50 mg Documented by: Multivitamins/Minerals (Multivitamins,Ther W-Minerals Tablet) 1 tablet PO DAILY@0800 [facility] Last Admin: 11/02/20 08:23 Dose: 1 tablet Documented by: Nutritional Formula (Lactose Free) (Ensure Enlive 120 Ml Liquid) 120 ml PO 4X/DAY [facility] Last Admin: 11/03/20 06:40 Dose: Not Given Documented by: Nystatin (Nystatin Powder 15gm Bottle) 1 applic TOPICAL BID [facility]; Protocol Last Admin: 11/03/20 06:41 Dose: 1 applicatio Documented by: Ondansetron HCl (Ondansetron Odt 4 Mg Tablet) 4 mg PO Q8H PRN PRN PRN Reason: NAUSEA Oxycodone HCl (Oxycodone 5 Mg Tablet) 2.5 mg PO Q6H PRN PRN PRN Reason: Pain Score 6-10 Last Admin: 10/22/20 20:11 Dose: 2.5 mg Documented by: Polyethylene Glycol (Polyethylene Glycol 3350 17 Gm Packet) 17 gm PO DAILY [facility] Last Admin: 11/03/20 06:40 Dose: Not Given Documented by: Senna/Docusate Sodium (Senna/Docusate Sodium 1 Tablet) 1 tablet PO BID [facility] Last Admin: 11/03/20 06:41 Dose: 1 tablet Documented by: Discharge Diet: No Restrictions Discharge Activity: Return to Normal Activity, May Shower, Use Walker Weight Bearing Status: Weight bearing as tolerated Call your doctor if you observe: Fever of 101 or Higher, Inability to urinate, Inability to have a bowel movement, Shortness of breath, Chest pain, Uncontrolled pain Home Medications: Medications to take at Discharge Cholecalciferol (Vitamin D3) [Vitamin D3] 2,000 unit PO DAILY 03/27/20 Escitalopram Oxalate 20 mg PO DAILY 03/27/20 Amlodipine [Norvasc] 5 mg PO DAILY 10/14/20 Vit A/Vit C/Vit E/Zinc/Copper [Preservision Areds Softgel] 1 ea PO DAILY 10/14/20 Acetaminophen [Tylenol Tablet] 650 mg PO Q6H PRN PRN tab 10/18/20 Acetaminophen [Tylenol] 1,000 mg PO Q8 10/18/20 Calcium (Elemental) [Os-Young 500] 500 mg PO BIDCM 10/18/20 Lisinopril [Zestril] 5 mg PO BID 10/18/20 metoprolol tartrate 50 mg tablet 50 mg PO BID #180 tab 10/20/20 Atorvastatin Calcium [Lipitor] 40 mg PO QHS #30 tablet 11/03/20 Famotidine [Pepcid] 20 mg PO DAILY #30 tablet 11/03/20 Ferrous Sulfate 325 mg PO DAILY #30 tablet 11/03/20 Menthol/Lanolin/Calamine/Znox [Calmoseptine Ointment] 1 applic TOPICAL BID tube 11/03/20 Metoprolol Tartrate [Lopressor (beta trace)] 50 mg PO BID tablet 11/03/20 Nystatin Powder [Mycostatin Powder] 1 applic TOPICAL BID bottle 11/03/20 Following Prescriptions Were Given to Patient: Ferrous Sulfate 325 mg PO DAILY #30 tablet Transmission Status: Pending to [facility] Atorvastatin Calcium [Lipitor] 40 mg PO QHS #30 tablet Transmission Status: Pending to [facility] Famotidine [Pepcid] 20 mg PO DAILY #30 tablet Transmission Status: Pending to [facility] Primary Care Physician: Johnny Harkins MD [Primary Care Provider] - Please follow up with your Primary Care Physician in: 1 week. Please Follow Up With: Werner Burdick DO When: 1 week. Please Follow Up With: Aj Clinton MD When: 2 weeks. Please Follow Up With: antoine Disposition: [facility] Living/Non-Skill [facility] Minutes spent on discharge:: 35 Patient Condition:: Stable Medical Necessity - Tobacco Use Smoking Status: Never smoker Tobacco Use: Non-smoker Meaningful Use Info Meaningful Use Diagnoses (Choose all that apply): None applicable
--- NOTE | 2020-11-03 08:12 | PCM.TXEXTCAR ---
- Diet 10/18/20 18:56 Diet: Regular - General Food consistency:: Regular Liquid Consistency:: Regular/Thin Is pt able to select menu?: No - Routine Orders/Code Status Suppository Type: Dulcolax 10mg Suppository Frequency: Daily PRN Code Status: Full Code - Wound(s) left hip Wound Type: Surgical Incision Dressing Change: mepilex 10/23 right big toe Wound Type: Abrasion right calf Wound Type: Abrasion left groin Wound Type: excoriation lip Wound Type: Abrasion kaye cleft Wound Type: Pressure Injury - Therapies Weight Bearing: Weight bearing as tolerated Extremity Affected:: Bilateral Lower - Problem/Diagnosis (1) Debility Status: Acute (2) Closed left hip fracture Status: Acute (3) Postoperative anemia Status: Acute (4) Severe aortic stenosis Status: Chronic (5) Severe mitral valve stenosis Status: Chronic (6) Encephalopathy Status: Acute (7) Hypertension Status: Chronic (8) Coronary artery disease Status: Chronic (9) Vitamin D deficiency Status: Chronic (10) Depression Status: Chronic (11) Iron deficiency anemia Status: Chronic (12) Gastroesophageal reflux disease Status: Chronic (13) Urinary retention Status: Acute Comment: Patient was placed on Flomax on 10/18/2020 (14) Cerebrovascular accident Status: Chronic (15) Hyperlipidemia Status: Chronic (16) Pulmonary HTN Status: Chronic - Allergies/Procedures Done in Hospital Allergies/Adverse Reactions: Allergies buspirone [From BuSpar] Allergy (Unknown, Verified 10/30/20 11:14) Unknown cimetidine [From Tagamet] Allergy (Unknown, Verified 10/30/20 11:14) unknown - Type of Care/Length of Stay Estimated LOS: More Than 30 Days Type of Care Needed: Jail/Assisted Living Rehab Potential: Fair Prognosis: Fair - Additional Orders/Day of Discharge Day of Discharge: 11/07/20 - Dietary and Speech Recommendations Dietitian Recommendations/Changes: Continue liberalized Regular diet w/ ONS at [facility]. Consider appetite stimulant for increased po intake - Follow Up Care Primary Care Physician: Johnny Harkins MD [Primary Care Provider] - Please follow up with your Primary Care Physician in: 1 week. Please Follow Up With: Werner Burdick DO When: 1 week. Please Follow Up With: Aj Clinton MD When: 2 weeks. Please Follow Up With: antoine
[2020-11-03] MEDS: Ferrous Sulfate 325 MG Tablet PO (08:18)
[2020-11-03] MEDS: Multivitamins,Ther W-Minerals Tablet 1 TABLET PO (08:18)
[2020-11-03] MEDS: Calcium (Elemental) 500 MG Tablet PO ×2 (08:18→17:30)
[2020-11-03] MEDS: oxyCODONE 5 MG Tablet 2.5 MG PO (09:35)
[2020-11-03 10:00] VITALS: PULSE 60; RESP 18; O2SAT 99
[2020-11-03 14:04] VITALS: BP 110/52; PULSE 64; RESP 14; TEMP 36.2; O2SAT 97
[2020-11-03 17:30] VITALS: PULSE 64
[2020-11-03] MEDS: Atorvastatin Calcium 40 MG Tablet PO (20:21)
--- NOTE | 2020-11-04 03:34 | NURSING ---
pt awake, water given
[2020-11-04 04:26] VITALS: BP 114/54; PULSE 70; RESP 18; TEMP 36.1; O2SAT 99
[2020-11-04] MEDS: Lisinopril 5 MG Tablet PO ×2 (04:26→17:58)
[2020-11-04] MEDS: CEFUROXIME AXETIL 250 MG TABLET 500 MG PO (04:26)
[2020-11-04] MEDS: Acetaminophen 500 MG Tablet 1000 MG PO ×3 (04:26→20:22)
[2020-11-04] MEDS: Polyethylene Glycol 3350 17 GM PACKET PO (04:26)
[2020-11-04] MEDS: Escitalopram Oxalate 20 MG Tablet PO (04:26)
[2020-11-04 04:27] VITALS: BP 114/51; PULSE 70
[2020-11-04] MEDS: amLODIPine 5 MG Tablet PO (04:27)
[2020-11-04] MEDS: Senna/Docusate Sodium 1 Tablet PO ×2 (04:27→17:58)
[2020-11-04] MEDS: Famotidine 20 MG Tablet PO (04:27)
[2020-11-04] MEDS: Metoprolol Tartrate 50 MG Tablet PO ×2 (04:27→17:58)
[2020-11-04] MEDS: Nystatin Powder 15gm Bottle 1 APPLIC TOPICAL ×2 (04:28→17:58)
[2020-11-04] MEDS: Menthol/Lanolin/Calamine/Znox 113 GM Tube 1 APPLIC TOPICAL ×2 (04:28→17:59)
[2020-11-04] MEDS: Cholecalciferol (VIT D3) 25 MCG TABLET (1,000 UNITS) 50 MCG PO (04:55)
[2020-11-04 07:05] VITALS: O2SAT 98
[2020-11-04] MEDS: Calcium (Elemental) 500 MG Tablet PO ×2 (09:18→17:58)
[2020-11-04] MEDS: Ferrous Sulfate 325 MG Tablet PO (09:19)
[2020-11-04] MEDS: Multivitamins,Ther W-Minerals Tablet 1 TABLET PO (09:19)
[2020-11-04 15:41] VITALS: BP 119/51; PULSE 63; RESP 14; TEMP 36.6; O2SAT 98
[2020-11-04 17:58] VITALS: BP 115/62; PULSE 73
[2020-11-04] MEDS: Atorvastatin Calcium 40 MG Tablet PO (20:22)
[2020-11-04 23:02] VITALS: PULSE 63; O2SAT 95
[2020-11-05 04:40] VITALS: BP 102/48; PULSE 60; RESP 17; TEMP 36.6; O2SAT 92
[2020-11-05] MEDS: amLODIPine 5 MG Tablet PO (04:44)
[2020-11-05] MEDS: Lisinopril 5 MG Tablet PO ×2 (04:44→17:34)
[2020-11-05] MEDS: Cholecalciferol (VIT D3) 25 MCG TABLET (1,000 UNITS) 50 MCG PO (04:44)
[2020-11-05] MEDS: Acetaminophen 500 MG Tablet 1000 MG PO ×3 (04:44→23:10)
[2020-11-05] MEDS: Famotidine 20 MG Tablet PO (04:44)
[2020-11-05 04:45] VITALS: BP 102/48; PULSE 60
[2020-11-05] MEDS: Menthol/Lanolin/Calamine/Znox 113 GM Tube 1 APPLIC TOPICAL ×2 (04:45→17:35)
[2020-11-05] MEDS: Metoprolol Tartrate 50 MG Tablet PO ×2 (04:45→17:34)
[2020-11-05] MEDS: Senna/Docusate Sodium 1 Tablet PO ×2 (04:45→17:35)
[2020-11-05] MEDS: Escitalopram Oxalate 20 MG Tablet PO (04:45)
[2020-11-05] MEDS: Nystatin Powder 15gm Bottle 1 APPLIC TOPICAL ×2 (04:46→17:35)
[2020-11-05] MEDS: Polyethylene Glycol 3350 17 GM PACKET PO (04:46)
[2020-11-05 08:16] VITALS: O2SAT 97
[2020-11-05] MEDS: Ferrous Sulfate 325 MG Tablet PO (08:48)
[2020-11-05] MEDS: Multivitamins,Ther W-Minerals Tablet 1 TABLET PO (08:48)
[2020-11-05] MEDS: Calcium (Elemental) 500 MG Tablet PO ×2 (08:48→17:34)
[2020-11-05 10:00] VITALS: O2SAT 79; O2SAT 91
[2020-11-05 13:55] VITALS: BP 123/50; PULSE 77; RESP 16; TEMP 36.5; O2SAT 91
[2020-11-05 17:34] VITALS: PULSE 77
[2020-11-05] MEDS: Atorvastatin Calcium 40 MG Tablet PO (23:10)
--- NOTE | 2020-11-06 00:24 | NURSING ---
This nurse in to reassess pain and pt is awake. Luis Alberto crackers and some water given. No swallowing difficulties noted. Requested coffee and informed pt caffeine would keep her awake. Call light w/ in reach.
[2020-11-06 06:52] VITALS: BP 135/41; PULSE 67; RESP 16; TEMP 36.8; O2SAT 100
[2020-11-06] MEDS: Menthol/Lanolin/Calamine/Znox 113 GM Tube 1 APPLIC TOPICAL ×2 (06:54→18:10)
[2020-11-06] MEDS: Nystatin Powder 15gm Bottle 1 APPLIC TOPICAL ×2 (06:54→18:10)
[2020-11-06] MEDS: Acetaminophen 500 MG Tablet 1000 MG PO ×2 (06:57→20:45)
[2020-11-06] MEDS: Polyethylene Glycol 3350 17 GM PACKET PO (06:57)
[2020-11-06] MEDS: Cholecalciferol (VIT D3) 25 MCG TABLET (1,000 UNITS) 50 MCG PO (06:57)
[2020-11-06] MEDS: Lisinopril 5 MG Tablet PO ×2 (06:58→18:10)
[2020-11-06] MEDS: Escitalopram Oxalate 20 MG Tablet PO (06:58)
[2020-11-06] MEDS: amLODIPine 5 MG Tablet PO (06:58)
[2020-11-06] MEDS: Famotidine 20 MG Tablet PO (06:58)
[2020-11-06] MEDS: Senna/Docusate Sodium 1 Tablet PO ×2 (06:58→18:09)
[2020-11-06 06:59] VITALS: BP 135/41; PULSE 67
[2020-11-06] MEDS: Metoprolol Tartrate 50 MG Tablet PO ×2 (06:59→18:10)
[2020-11-06] MEDS: Multivitamins,Ther W-Minerals Tablet 1 TABLET PO (09:10)
[2020-11-06] MEDS: Ferrous Sulfate 325 MG Tablet PO (09:10)
[2020-11-06] MEDS: Calcium (Elemental) 500 MG Tablet PO ×2 (09:10→18:09)
--- NOTE | 2020-11-06 11:34 | NURSING ---
PT REFUSED TO GO TO [facility]. PT STATED I DONT NEED THE DOCTOR TO TELL ME WHATS WRONG WITH ME I ALREADY KNOW. SON TRIED TO TALK PT INTO IT BUT SHE STILL REFUSED. RN AWARE.
[2020-11-06 13:24] VITALS: BP 96/42; PULSE 72; RESP 16; TEMP 36.4; O2SAT 94
[2020-11-06 13:25] VITALS: O2SAT 87
--- NOTE | 2020-11-06 14:29 | CASEMGMT ---
BIMS and PHQ9 interviews completed on this date for MDS assessment. AVNI Hernandez
[2020-11-06 17:29] VITALS: BP 131/48; PULSE 66
[2020-11-06] MEDS: Bisacodyl 10 MG Suppository RC (18:09)
[2020-11-06 18:10] VITALS: BP 131/48; PULSE 66
[2020-11-06] MEDS: Atorvastatin Calcium 40 MG Tablet PO (20:45)
[2020-11-07 04:35] VITALS: BP 121/49; PULSE 86; RESP 18; TEMP 37.3; O2SAT 90
[2020-11-07] MEDS: Cholecalciferol (VIT D3) 25 MCG TABLET (1,000 UNITS) 50 MCG PO (04:37)
[2020-11-07] MEDS: Polyethylene Glycol 3350 17 GM PACKET PO (04:37)
[2020-11-07 04:38] VITALS: PULSE 86
[2020-11-07] MEDS: Acetaminophen 500 MG Tablet 1000 MG PO (04:38)
[2020-11-07] MEDS: Famotidine 20 MG Tablet PO (04:38)
[2020-11-07] MEDS: Lisinopril 5 MG Tablet PO (04:38)
[2020-11-07] MEDS: amLODIPine 5 MG Tablet PO (04:38)
[2020-11-07] MEDS: Senna/Docusate Sodium 1 Tablet PO (04:38)
[2020-11-07] MEDS: Metoprolol Tartrate 50 MG Tablet PO (04:38)
[2020-11-07] MEDS: Escitalopram Oxalate 20 MG Tablet PO (04:38)
[2020-11-07] MEDS: Menthol/Lanolin/Calamine/Znox 113 GM Tube 1 APPLIC TOPICAL (04:39)
[2020-11-07] MEDS: Nystatin Powder 15gm Bottle 1 APPLIC TOPICAL (04:39)
[2020-11-07 08:00] VITALS: BP 96/38; PULSE 65; RESP 18; TEMP 36.9; O2SAT 99
[2020-11-07] MEDS: Ferrous Sulfate 325 MG Tablet PO (08:21)
[2020-11-07] MEDS: Multivitamins,Ther W-Minerals Tablet 1 TABLET PO (08:21)
[2020-11-07] MEDS: Calcium (Elemental) 500 MG Tablet PO (08:21)
[2020-11-07 09:23] VITALS: PULSE 65; RESP 18; O2SAT 99
[2020-11-07 10:55] VITALS: O2SAT 99
== END 2020-11-07 10:15 | disposition home or self-care (01) | DRG 561 ==
PROVIDERS: Admitting Provider Family Medicine Geriatric Medicine; PCP Family Medicine; Visit Provider Family Medicine Geriatric Medicine
DX: S72.002D Fracture of unspecified part of neck of left femur, subsequent encounter for closed fracture with routine healing (principal); M80.852D Other osteoporosis with current pathological fracture, left femur, subsequent encounter for fracture with routine healing; W19.XXXD Unspecified fall, subsequent encounter; I11.0 Hypertensive heart disease with heart failure; I50.9 Heart failure, unspecified; I25.10 Atherosclerotic heart disease of native coronary artery without angina pectoris; K21.9 Gastro-esophageal reflux disease without esophagitis; F32.9 Major depressive disorder, single episode, unspecified; D50.9 Iron deficiency anemia, unspecified; E78.5 Hyperlipidemia, unspecified; I27.20 Pulmonary hypertension, unspecified; S00.03XD Contusion of scalp, subsequent encounter; B35.4 Tinea corporis; R33.9 Retention of urine, unspecified; Z96.642 Presence of left artificial hip joint; Z95.0 Presence of cardiac pacemaker
CPT/HCPCS: 36415; 80048; 81001; 85014; 85018; 85025; 87086; 87088; 87186; 87635; 92507; 92523; 92610; 97110; 97116; 97163; 97166; 97530; 97535; 97802; U0002

== ENCOUNTER → 2020-12-25 11:58 | Outpatient (CLI) | payer MEDICARE, OTHER, SELFPAY ==
[2020-12-09 15:29] VITALS: BMI 26.2
[2020-12-25 12:06] LABS: Bacteria 0 SEEN /hpf (None Seen); Mucous, Urine 0 SEEN /hpf (<or=2+); Red Blood Cells-Urine 0 SEEN /hpf (0-5)
[2020-12-25 15:03] LABS: Absolute Lymphocyte Count 0.99 X10^3/uL (0.83-4.51); Basophil# 0.03 X10^3/uL; Basophil% 0.5 % (0-1); Eosinophil# 0.06 X10^3/uL; Eosinophils% 1.1 % (0-5); Hematocrit 38.6 % (37-47); Hemoglobin 11.9 g/dL (12.0-15.0); Lymphocyte # 0.99 X10^3/ul (0.83-4.51); Lymphocyte % 17.9 % (19-41); Mean Corp Hgb Conc 30.8 g/dL (32-36); Mean Corpuscular Hgb 33.1 pg (27.0-32.0); Mean Corpuscular Volume 107.2 fL (81-99); Mean Platelet Vol. 14.4 fl (6.2-12.0); Monocyte# 0.48 X10^3/uL; Monocyte% 8.7 % (0-10); NRBC Flagged by Analyzer 0 % (0-5); Neutrophil # 3.95 X10^3/uL (2.7-7.7); Neutrophil % 71.6 % (47-70); POSITIVE COUNT YES; Platelet Count 81 K/mm3 (150-450); RBC Distribution Width CV 15.7 % (11.6-14.6); RBC Distribution Width SD 61.8 fl (35.1-43.9); White Blood Count 5.5 K/mm3 (4.4-11.0)
[2020-12-25 15:09] LABS: Color, Urine Yellow (Yellow); Glucose, Dipstick Normal (Normal); Ketone-Dipstick 5 mg/dl (Negative); Leukocyte Esterase-Dipstick 100 /ul (Negative); Nitrite-Dipstick Negative (Negative); Occult Blood-Urine Negative /ul (Negative); Protein-Dipstick 15 mg/dl (Negative); Urine Clarity Clear (Clear); Urine Urobilinogen 4 mg/dl (Normal)
[2020-12-25 15:22] LABS: Hemoglobin A1c 4.9 % (3.8-5.6)
[2020-12-25 15:22] LABS: Squamous Epithelial Cells - UA 0-5 SEEN /hpf (5-10); Urine Bilirubin Dipstick 1 mg/dL (Negative); White Blood Cells 0-5 SEEN /hpf (0-5)
[2020-12-25 15:25] LABS: PTHIN 70.3 pg/mL (18.4-80.1); Vitamin B12 293 pg/mL (211-911); Vitamin D,25 Hydroxy 40.7 ng/mL
[2020-12-25 15:30] LABS: Differential Indicated SCAN CRITERIA MET
[2020-12-25 15:47] LABS: Cholesterol 181 mg/dL (200); Ferritin 268 ng/mL (8-252); High Density Lipoprotein 76 mg/dL; Iron 54 ug/dL (50-170); Iron Binding Capacity,Total 314 ug/dL (250-450); Phosphorus 3.9 mg/dL (2.5-4.9); Triglycerides 60 mg/dL; Very Low Density Lipoprotein 12 mg/dL (5-40)
[2020-12-25 16:02] LABS: Protein, Urine (Random) 33.1 mg/dL (<11.9); Protein:Creat Ratio 117 mg/g CRE (0-200)
[2020-12-25 16:29] LABS: Anisocytosis RARE; Macrocytosis RARE; Platelet Estimate MOD DEC (ADEQ); Red Cell Morphology N CHROM NORMAL (NORM C&C)
== END ==
PROVIDERS: PCP Family Medicine; Referring Provider Family Medicine; Visit Provider Family Medicine
DX: I12.9 Hypertensive chronic kidney disease with stage 1 through stage 4 chronic kidney disease, or unspecified chronic kidney disease (principal); N18.30 Chronic kidney disease, stage 3 unspecified; D63.1 Anemia in chronic kidney disease; E55.9 Vitamin D deficiency, unspecified; R73.02 Impaired glucose tolerance (oral)
CPT/HCPCS: 36415; 80061; 81001; 82306; 82570; 82607; 82728; 82746; 83036; 83540; 83550; 83970; 84100; 84156; 85025

== ENCOUNTER → 2021-01-29 05:00 | Outpatient (REF) | payer MEDICARE, OTHER, SELFPAY ==
[2020-12-09 15:29] VITALS: BMI 26.2
[2021-01-29 09:07] LABS: Absolute Lymphocyte Count 0.86 X10^3/uL (0.83-4.51); Absolute Neutrophil Count 4.4 X10^3/uL (2.0-7.7); Basophil# 0.02 X10^3/uL; Basophil% 0.3 % (0-1); Eosinophil# 0.09 X10^3/uL; Eosinophils% 1.5 % (0-5); Hematocrit 34.1 % (37-47); Hemoglobin 10.7 g/dL (12.0-15.0); Lymphocyte # 0.86 X10^3/ul (0.83-4.51); Lymphocyte % 14.6 % (19-41); Mean Corp Hgb Conc 31.4 g/dL (32-36); Mean Corpuscular Hgb 33.3 pg (27.0-32.0); Mean Corpuscular Volume 106.2 fL (81-99); Monocyte# 0.53 X10^3/uL; NRBC Flagged by Analyzer 0 % (0-5); Neutrophil # 4.38 X10^3/uL (2.7-7.7); Neutrophil % 74.1 % (47-70); POSITIVE COUNT YES; Platelet Count 79 K/mm3 (150-450); RBC Distribution Width CV 15.7 % (11.6-14.6); RBC Distribution Width SD 60.6 fl (35.1-43.9); Red Blood Count 3.21 M/mm3 (4.2-5.4); White Blood Count 5.9 K/mm3 (4.4-11.0)
[2021-01-29 09:08] LABS: Differential Indicated SCAN CRITERIA MET
[2021-01-29 09:29] LABS: Platelet Estimate MOD DEC (ADEQ)
[2021-01-30 08:07] LABS: Color, Urine Yellow (Yellow); Glucose, Dipstick Normal (Normal); Ketone-Dipstick Negative (Negative); Leukocyte Esterase-Dipstick 500 /ul (Negative); Nitrite-Dipstick Positive (Negative); Occult Blood-Urine 25 /ul (Negative); Protein-Dipstick 30 mg/dl (Negative); Urine Bilirubin Dipstick Negative (Negative); Urine Clarity Cloudy (Clear); Urine Urobilinogen Normal (Normal)
== END ==
LOC: OLS.DANBUR 05:00
PROVIDERS: PCP Family Medicine; Referring Provider Family Medicine; Visit Provider Family Medicine
DX: D64.9 Anemia, unspecified (principal); N39.0 Urinary tract infection, site not specified
CPT/HCPCS: 36415; 81002; 85025; 87077; 87086; 87088; 87186

== ENCOUNTER → 2021-04-23 05:00 | Outpatient (REF) | payer MEDICARE, OTHER, SELFPAY ==
[2021-04-23 09:25] LABS: Absolute Lymphocyte Count 0.89 X10^3/uL (0.83-4.51); Absolute Neutrophil Count 3.2 X10^3/uL (2.0-7.7); Basophil# 0.02 X10^3/uL; Basophil% 0.4 % (0-1); Eosinophil# 0.09 X10^3/uL; Eosinophils% 1.9 % (0-5); Hematocrit 34.9 % (37-47); Hemoglobin 11.2 g/dL (12.0-15.0); Lymphocyte # 0.89 X10^3/ul (0.83-4.51); Mean Corp Hgb Conc 32.1 g/dL (32-36); Mean Corpuscular Volume 102.9 fL (81-99); Monocyte# 0.47 X10^3/uL; NRBC Flagged by Analyzer 0 % (0-5); Neutrophil % 68.5 % (47-70); POSITIVE COUNT YES; Platelet Count 67 K/mm3 (150-450); RBC Distribution Width CV 15.9 % (11.6-14.6); Red Blood Count 3.39 M/mm3 (4.2-5.4); White Blood Count 4.7 K/mm3 (4.4-11.0)
[2021-04-23 09:26] LABS: Differential Indicated SCAN CRITERIA MET
[2021-04-23 09:45] LABS: AST(SGOT) 15 U/L (15-37); Alanine Aminotransfer ALT/SGPT 23 U/L (13-56); Albumin, Serum 3.2 g/dL (3.2-5.0); Alkaline Phosphatase 55 U/L (45-117); Anion Gap 4 (5-15); BUN 23 mg/dL (7-18); BUN/Creat Ratio 33.5 RATIO (10-20); Chloride 106 mmol/L (98-107); Cholesterol 200 mg/dL (200); Creatinine, Serum 0.69 mg/dL (0.55-1.02); EST Glomerular Filtration Rate 86 mL/min (>60); Est Glom Filt Rate - Afr Amer 104 mL/min (>60); Ferritin 143 ng/mL (8-252); Globulin 3.3 g/dL (2.2-4.2); Glucose 85 mg/dL (74-106); High Density Lipoprotein 72 mg/dL; Iron 68 ug/dL (50-170); Iron Binding Capacity,Total 265 ug/dL (250-450); Potassium 3.9 mmol/L (3.5-5.1); Protein, Total 6.5 g/dL (6.4-8.2); Sodium Level 140 mmol/L (136-145); Triglycerides 42 mg/dL; Very Low Density Lipoprotein 8 mg/dL (5-40)
[2021-04-23 10:32] LABS: Platelet Estimate MOD DEC (ADEQ)
[2021-04-23 10:38] LABS: Hemoglobin A1c 5.3 % (3.8-5.6)
== END ==
LOC: OLS.DANBUR 05:00
PROVIDERS: PCP Family Medicine; Visit Provider Family Medicine
DX: D64.9 Anemia, unspecified (principal); E55.9 Vitamin D deficiency, unspecified; E78.00 Pure hypercholesterolemia, unspecified; R73.02 Impaired glucose tolerance (oral)
CPT/HCPCS: 36415; 80053; 80061; 82306; 82728; 83036; 83540; 83550; 85025

== ENCOUNTER 2021-08-26 05:30 | Outpatient (REF) | payer MEDICARE, OTHER, SELFPAY ==
[2021-08-26 11:42] LABS: Color, Urine Yellow (Yellow); Glucose, Dipstick Normal (Normal); Ketone-Dipstick Negative (Negative); Leukocyte Esterase-Dipstick 100 /ul (Negative); Nitrite-Dipstick Negative (Negative); Occult Blood-Urine Negative /ul (Negative); Protein-Dipstick Negative (Negative); Specific Gravity, Urine 1.015 (1.002-1.030); Urine Bilirubin Dipstick Negative (Negative); Urine Clarity Sl. Cloudy (Clear); Urine Urobilinogen Normal (Normal)
== END 2021-08-26 23:59 | disposition home or self-care (01) ==
LOC: OLS.DANBUR 05:30
PROVIDERS: PCP Family Medicine; Visit Provider Family Medicine
DX: N39.0 Urinary tract infection, site not specified (principal)
CPT/HCPCS: 81002; 87086; 87088

== ENCOUNTER 2021-08-28 08:07 | Outpatient (REF) | payer MEDICARE, OTHER, SELFPAY ==
[2021-08-28 08:08] LABS: Mucous, Urine 0 SEEN /hpf (<or=2+); Red Blood Cells-Urine 0 SEEN /hpf (0-5); Squamous Epithelial Cells - UA 0 SEEN /hpf (5-10)
[2021-08-28 08:43] LABS: Color, Urine Yellow (Yellow); Glucose, Dipstick Normal (Normal); Ketone-Dipstick Negative (Negative); Leukocyte Esterase-Dipstick 100 /ul (Negative); Nitrite-Dipstick Negative (Negative); Occult Blood-Urine Negative /ul (Negative); Protein-Dipstick Negative (Negative); Specific Gravity, Urine 1.025 (1.002-1.030); Urine Bilirubin Dipstick Negative (Negative); Urine Clarity Clear (Clear); Urine Urobilinogen Normal (Normal)
[2021-08-28 08:50] LABS: Bacteria RARE /hpf (None Seen); White Blood Cells 5-10 SEEN /hpf (0-5)
== END 2021-08-28 23:59 | disposition home or self-care (01) ==
LOC: OLS.DANBUR 08:07
PROVIDERS: PCP Family Medicine; Visit Provider Family Medicine
DX: N39.0 Urinary tract infection, site not specified (principal)
CPT/HCPCS: 81001; 87086; 87088

== ENCOUNTER 2022-01-09 20:47 | Emergency (ER) | payer MEDICARE, OTHER, SELFPAY ==
[2022-01-09 20:48] VITALS: BP 165/63; PULSE 71; RESP 16; TEMP 36.6; O2SAT 94; BMI 23.8
--- NOTE | 2022-01-09 21:01 | CT_ITS ---
EXAM: CT ABDOMEN AND PELVIS WITHOUT INTRAVENOUS CONTRAST CLINICAL INDICATION: abdominal pain TECHNIQUE: Helically acquired images were obtained of the abdomen and pelvis without intravenous contrast. This CT exam was performed using one or more of the following dose reduction techniques: automated exposure control, adjustment of the mA and/or kV according to patient size, and/or use of iterative reconstruction technique. This report was created using [employer] report generation technology. RADIATION DOSE: CTDIvol = 8.65 mGy, DLP = 400.93 mGy-cm. COMPARISON: 01/25/2016. FINDINGS: LOWER THORAX: Mild cardiomegaly. Thickening of the interlobular septa in the lung bases that may be due to interstitial edema. Coronary artery calcifications. Dense mitral annulus calcifications. No significant pericardial effusion. ABDOMEN: LIVER: Unremarkable. Homogeneous. GALLBLADDER AND BILE DUCTS: Cholecystectomy. No intra- or extrahepatic biliary ductal dilation. PANCREAS: Moderately atrophic pancreas. No focal cystic mass. SPLEEN: Unremarkable. Normal size without focal cystic or solid mass. ADRENALS: Unremarkable. No nodules. KIDNEYS AND URETERS: Unremarkable. Normal renal size and position. No hydronephrosis. STOMACH AND BOWEL: The rectum is distended up to 8 cm with fecal material with a moderate amount of fecal material throughout the colon. No focal inflammatory change. PELVIS: APPENDIX: No evidence of acute appendicitis. BLADDER: Unremarkable. REPRODUCTIVE: Unremarkable as visualized. No mass. ABDOMEN and PELVIS: INTRAPERITONEAL SPACE: Unremarkable. No ascites or other fluid collection. No free air. BONES/JOINTS: Left hip arthroplasty. No suspicious lytic or blastic abnormality. SOFT TISSUES: Unremarkable. No discrete abdominal or pelvic wall hernia. VASCULATURE: Unremarkable. Abdominal aorta is non-dilated. LYMPH NODES: Unremarkable. No enlarged lymph nodes. CT/Abdomen/Pelvis without Cont IMPRESSION: 1. Mild cardiomegaly. 2. Thickening of the interlobular septa in the lung bases that may be due to interstitial edema. 3. Coronary artery disease. 4. Cholecystectomy. 5. Moderately atrophic pancreas. 6. Constipation with mild rectal fecal impaction. 7. No specific acute abdominopelvic abnormality. Electronically Signed: Zhang Martell MD at 22:04 EDT ,
--- NOTE | 2022-01-09 21:05 | EDS_ITS ---
HPI History of Present Illness Chief Complaint: Abd Pain Narrative Narrative: Patient presents with what seems to be worsening confusion per [facility] as well as she complained of abdominal pain. She has severe dementia, she is oriented x0. She is denying any pain. The history is obtained from paramedics. [facility] Medical History Acute myocardial infarction Anemia Atherosclerotic heart disease of [place] coronary artery without angina pectoris Atrioventricular block, complete Bilateral carotid bruits Cerebrovascular accident Essential hypertension Hyperlipidemia Iron deficiency anemia due to chronic blood loss LVH (left ventricular hypertrophy) Nonrheumatic aortic (valve) stenosis Nonrheumatic mitral valve stenosis with insufficiency Palpitations Pulmonary HTN Supraventricular tachycardia Thrombocytopenia Home Medications ferrous sulfate 325 mg PO DAILY #30 tablet 11/03/20 [Rx Last Taken Unknown] menthol-zinc oxide 1 applic TOPICAL BID tube 11/03/20 [Rx Last Taken Unknown] nystatin 1 applic TOPICAL BID bottle 11/03/20 [Rx Last Taken Unknown] escitalopram oxalate 20 mg tablet 20 mg PO DAILY 12/09/20 [History Last Taken Unknown] ibuprofen 200 mg tablet 400 mg PO Q6H PRN tab 12/09/20 [History Last Taken Unknown] magnesium hydroxide 400 mg/5 mL oral suspension 30 ml PO DAILY PRN ml 12/09/20 [History Last Taken Unknown] simvastatin 40 mg tablet 40 mg PO QHS 06/22/21 [History Last Taken Unknown] ondansetron 4 mg disintegrating tablet 4 mg PO Q8H PRN 08/26/21 [History Last Taken Unknown] metoprolol tartrate 50 mg tablet 50 mg PO BID #180 tab 09/10/21 [Rx Last Taken Unknown] acetaminophen 500 mg tablet 1,000 mg PO TID PRN tab 12/24/21 [History Last Taken Unknown] calcium carbonate 600 mg-vitamin D3 12.5 mcg (500 unit) capsule 1 cap PO DAILY cap 12/24/21 [History Last Taken Unknown] lisinopril 2.5 mg tablet 2.5 mg PO DAILY tab 12/24/21 [History Last Taken Unknown] loperamide 2 mg tablet 4 mg PO Q6H PRN tab 12/24/21 [History Last Taken Unknown] omeprazole 20 mg tablet,delayed release 20 mg PO BID tab 12/24/21 [History Last Taken Unknown] Allergy/AdvReac Type Severity Reaction Status Date / Time buspirone [From BuSpar] Allergy Unknown Unknown Verified 01/09/22 20:55 cimetidine [From Tagamet] Allergy Unknown unknown Verified 01/09/22 20:55 Family History Other No pertinent family history Surgical History History of cholecystectomy History of hysterectomy History of left heart catheterization (LHC) (~07/27/12) Presence of permanent cardiac pacemaker Social History housing: assisted Smoking Status: Never smoker alcohol intake: never substance use type: does not use caffeine: Yes what type of physical activity do you participate in: none do you feel safe at home: Yes ROS ROS ED Review of Systems ROS Unobtainable: due to mental condition EXAM Physical Exam Narrative Exam Narrative: Physical exam General: Patient is pleasantly demented, I asked her name and she said I do not know. Head: Normocephalic, Atraumatic Eyes: Conjunctiva not pale ENT: Moist mucous membranes no signs of dehydration, no congestion. Neck: Supple, Nontender, No lymphadenopathy Cardiovascular: Regular rate, Regular rhythm. 3 out of 6 holosystolic murmur Respiratory: No distress, CTA bilaterally Abdomen: Soft, I am pressing throughout her entire abdomen I cannot appreciate any tenderness. She does not seem to withdraw or feel pain. She does have bowel sounds. Back: Nontender, Normal Inspection. Negative for: CVA tenderness Extremities: Nontender, No edema Skin: Normal color, No rash Neurological: Alert, oriented x0, normal Strength, Normal Sensation Const Vital Signs: 01/09/22 20:48 Temperature 97.9 F Temperature Source Temporal Pulse Rate 71 Respiratory Rate 16 Blood Pressure 165/63 H Blood Pressure Mean 97 Pulse Ox 94 Oxygen Delivery Method Room Air MDM MDM MDM Narrative Medical decision making narrative: Patient's work-up is unremarkable she appears well, from what I am gathering she is at her baseline. I believe she is safe for discharge Lab Data Labs: Laboratory Results - last 24 hr 01/09/22 01/09/22 01/09/22 21:06 21:06 21:08 WBC 8.1 RBC 3.47 L Hgb 11.7 L Hct 35.4 L MCV 102.0 H MCH 33.7 H MCHC 33.1 RDW Std Deviation 59.9 H RDW Coeff of Kelly 15.8 H Plt Count 80 L MPV TNP Immature Gran % (Auto) 0.500 Neut % (Auto) 77.7 H Lymph % (Auto) 11.3 L [place] % (Auto) 9.2 Eos % (Auto) 1.1 Baso % (Auto) 0.2 Absolute Neuts (auto) 6.3 Absolute Lymphs (auto) 0.92 Nucleated RBC % 0 Differential Comment SCANNED Sodium 142 Potassium 4.2 Chloride 108 H Carbon Dioxide 30.0 Anion Gap 4 L BUN 26 H Creatinine 0.87 Estim Creat Clear Calc 33.34 Est GFR (MDRD) Af Amer 79 Est GFR (MDRD) Non-Af 65 BUN/Creatinine Ratio 29.8 H Glucose 110 H Calcium 8.7 Total Bilirubin 0.50 Direct Bilirubin 0.11 AST 24 ALT 17 Alkaline Phosphatase 102 Total Protein 7.0 Albumin 3.6 Globulin 3.4 Albumin/Globulin Ratio 1.1 Urine Color Straw Urine Clarity Clear Urine pH 7.0 Ur Specific [place] 1.010 Urine Protein 30 H Urine Glucose (UA) Normal Urine Ketones Negative Urine Occult Blood 10 H Urine Nitrite Negative Urine Bilirubin Negative Urine Urobilinogen Normal Ur Leukocyte Esterase Negative Urine RBC 0 SEEN Urine WBC 0 SEEN Ur Squamous Epith Cells 0 SEEN Urine Bacteria RARE Urine Mucus 0 SEEN Radiography Diagnostic Testing: Clinical Impression(s) from Imaging Studies Abdomen/Pelvis CT 01/09/22 21:01 IMPRESSION: 1. Mild cardiomegaly. 2. Thickening of the interlobular septa in the lung bases that may be due to interstitial edema. 3. Coronary artery disease. 4. Cholecystectomy. 5. Moderately atrophic pancreas. 6. Constipation with mild rectal fecal impaction. 7. No specific acute abdominopelvic abnormality. Electronically Signed: Zhang Martell MD at 22:04 EDT , Discharge Plan Triage Chief Complaint: Abd Pain ED Provider: Bradley Jones Dx/Rx/DC Orders Clinical Impression: Weakness, No problem, feared complaint unfounded Instructions: ED Weakness (Uncertain Cause) Prescriptions: No Action escitalopram oxalate 20 mg tablet 20 mg PO DAILY RF: 0 ibuprofen 200 mg tablet 400 mg PO Q6H PRN (Reason: Pain) RF: 0 magnesium hydroxide [Milk of Magnesia] 400 mg/5 mL suspension 30 ml PO DAILY PRN (Reason: abdomin) RF: 0 loperamide 2 mg tablet 4 mg PO Q6H PRN (Reason: Diarrhea) RF: 0 simvastatin 40 mg tablet 40 mg PO QHS RF: 0 acetaminophen 500 mg tablet 1,000 mg PO TID PRN (Reason: Pain) RF: 0 calcium carbonate-vitamin D3 [Calcium 600 with Vitamin D3] 600 mg-12.5 mcg (500 unit) capsule 1 cap PO DAILY RF: 0 lisinopril 2.5 mg tablet 2.5 mg PO DAILY RF: 0 nystatin 1 APPLIC bottle 1 applic TOPICAL BID RF: 0 menthol-zinc oxide 1 APPLIC ointment 1 applic TOPICAL BID RF: 0 ferrous sulfate 325 mg (65 mg iron) tablet 325 mg PO DAILY Qty: 30 RF: 0 ondansetron 4 mg tablet,disintegrating 4 mg PO Q8H PRN (Reason: Nausea) RF: 0 metoprolol tartrate 50 mg tablet 50 mg PO BID Qty: 180 RF: 3 omeprazole 20 mg tablet,delayed release (DR/EC) 20 mg PO BID RF: 0 Primary Care Provider: Johnny Harkins Referrals: Johnny Harkins MD [Primary Care Provider] - 2 Days Disposition Disposition: Home, Self Care
[2022-01-09 21:13] LABS: Mucous, Urine 0 SEEN /hpf (<or=2+); Red Blood Cells-Urine 0 SEEN /hpf (0-5); Squamous Epithelial Cells - UA 0 SEEN /hpf (5-10); White Blood Cells 0 SEEN /hpf (0-5)
[2022-01-09 21:14] LABS: Color, Urine Straw (Yellow); Glucose, Dipstick Normal (Normal); Ketone-Dipstick Negative (Negative); Leukocyte Esterase-Dipstick Negative /ul (Negative); Nitrite-Dipstick Negative (Negative); Occult Blood-Urine 10 /ul (Negative); Protein-Dipstick 30 mg/dl (Negative); Urine Bilirubin Dipstick Negative (Negative); Urine Clarity Clear (Clear); Urine Urobilinogen Normal (Normal)
[2022-01-09 21:15] LABS: Absolute Lymphocyte Count 0.92 X10^3/uL (0.83-4.51); Absolute Neutrophil Count 6.3 X10^3/uL (2.0-7.7); Basophil# 0.02 X10^3/uL; Basophil% 0.2 % (0-1); Eosinophil# 0.09 X10^3/uL; Eosinophils% 1.1 % (0-5); Hematocrit 35.4 % (37-47); Hemoglobin 11.7 g/dL (12.0-15.0); Lymphocyte # 0.92 X10^3/ul (0.83-4.51); Lymphocyte % 11.3 % (19-41); Mean Corp Hgb Conc 33.1 g/dL (32-36); Mean Corpuscular Hgb 33.7 pg (27.0-32.0); Monocyte# 0.75 X10^3/uL; Monocyte% 9.2 % (0-10); NRBC Flagged by Analyzer 0 % (0-5); Neutrophil # 6.32 X10^3/uL (2.7-7.7); Neutrophil % 77.7 % (47-70); POSITIVE COUNT YES; Platelet Count 80 K/mm3 (150-450); RBC Distribution Width CV 15.8 % (11.6-14.6); RBC Distribution Width SD 59.9 fl (35.1-43.9); Red Blood Count 3.47 M/mm3 (4.2-5.4); White Blood Count 8.1 K/mm3 (4.4-11.0)
[2022-01-09 21:31] LABS: ALB/GLOB Ratio 1.1 RATIO (0.9-2.4); AST(SGOT) 24 U/L (15-37); Alanine Aminotransfer ALT/SGPT 17 U/L (13-56); Albumin, Serum 3.6 g/dL (3.2-5.0); Alkaline Phosphatase 102 U/L (45-117); Anion Gap 4 (5-15); BUN 26 mg/dL (7-18); BUN/Creat Ratio 29.8 RATIO (10-20); Bilirubin, Direct 0.11 mg/dL (0.00-0.30); Calcium,Total 8.7 mg/dL (8.5-10.1); Chloride 108 mmol/L (98-107); Creatinine, Serum 0.87 mg/dL (0.55-1.02); EST Glomerular Filtration Rate 65 mL/min (>60); Est Glom Filt Rate - Afr Amer 79 mL/min (>60); Estimated Creatinine Clearance 33.34 ml/min; Globulin 3.4 g/dL (2.2-4.2); Glucose 110 mg/dL (74-106); Potassium 4.2 mmol/L (3.5-5.1); Sodium Level 142 mmol/L (136-145)
[2022-01-09 21:35] LABS: Differential Indicated SCAN CRITERIA MET
[2022-01-09 21:48] LABS: Bacteria RARE /hpf (None Seen)
[2022-01-09 21:51] LABS: Differential Comment SCANNED
--- NOTE | 2022-01-09 22:17 | ED.RN ---
[facility] Nurse called for an update. This RN stated patient has had blood work and urine specimens done and look ok at this time. CT showed mild constipation. Dr. Jones has put patient up for discharge. Physicians being called at this time for transport back to [place]
--- NOTE | 2022-01-09 22:22 | NURSING ---
CALLED PHYSICIANS AT [id number] ETA 30 MIN
--- NOTE | 2022-01-09 22:34 | NURSING ---
PHYSICIANS ARRIVED AT [id number]
== END 2022-01-09 22:48 | disposition home or self-care (01) ==
PROVIDERS: Emergency Provider Emergency Medicine; PCP Family Medicine; Visit Provider Emergency Medicine
DX: R53.1 Weakness (principal); F03.90 Unspecified dementia, unspecified severity, without behavioral disturbance, psychotic disturbance, mood disturbance, and anxiety; Z71.1 Person with feared health complaint in whom no diagnosis is made; I25.10 Atherosclerotic heart disease of native coronary artery without angina pectoris; I10 Essential (primary) hypertension; I25.2 Old myocardial infarction; E78.5 Hyperlipidemia, unspecified; D64.9 Anemia, unspecified; Z79.899 Other long term (current) drug therapy; Z86.73 Personal history of transient ischemic attack (TIA), and cerebral infarction without residual deficits
CPT/HCPCS: 74176; 80053; 80076; 81001; 85025; 99283; P9612; A4216

== ENCOUNTER → 2022-02-12 05:00 | Outpatient (REF) | payer MEDICARE, OTHER, SELFPAY ==
[2022-02-12 09:03] LABS: Absolute Lymphocyte Count 0.78 X10^3/uL (0.83-4.51); Basophil# 0.03 X10^3/uL; Basophil% 0.7 % (0-1); Eosinophil# 0.07 X10^3/uL; Eosinophils% 1.6 % (0-5); Hematocrit 32.4 % (37-47); Hemoglobin 10.3 g/dL (12.0-15.0); Lymphocyte # 0.78 X10^3/ul (0.83-4.51); Lymphocyte % 17.9 % (19-41); Mean Corp Hgb Conc 31.8 g/dL (32-36); Mean Corpuscular Hgb 33.6 pg (27.0-32.0); Mean Corpuscular Volume 105.5 fL (81-99); Monocyte# 0.45 X10^3/uL; Monocyte% 10.3 % (0-10); NRBC Flagged by Analyzer 0 % (0-5); Neutrophil # 3.02 X10^3/uL (2.7-7.7); Neutrophil % 69.3 % (47-70); POSITIVE COUNT YES; POSITIVE MORPHOLOGY YES; RBC Distribution Width CV 17.2 % (11.6-14.6); RBC Distribution Width SD 66.4 fl (35.1-43.9); Red Blood Count 3.07 M/mm3 (4.2-5.4); White Blood Count 4.4 K/mm3 (4.4-11.0)
[2022-02-12 09:06] LABS: Differential Indicated SCAN CRITERIA MET
[2022-02-12 09:32] LABS: ALB/GLOB Ratio 1.1 RATIO (0.9-2.4); AST(SGOT) 17 U/L (15-37); Alanine Aminotransfer ALT/SGPT 27 U/L (13-56); Albumin, Serum 3.1 g/dL (3.2-5.0); Alkaline Phosphatase 88 U/L (45-117); Anion Gap 4 (5-15); BUN 17 mg/dL (7-18); BUN/Creat Ratio 22.3 RATIO (10-20); Calcium,Total 8.6 mg/dL (8.5-10.1); Chloride 108 mmol/L (98-107); Creatinine, Serum 0.76 mg/dL (0.55-1.02); EST Glomerular Filtration Rate 76 mL/min (>60); Est Glom Filt Rate - Afr Amer 92 mL/min (>60); Ferritin 202 ng/mL (8-252); Globulin 2.9 g/dL (2.2-4.2); Glucose 95 mg/dL (74-106); Iron 60 ug/dL (50-170); Iron Binding Capacity,Total 248 ug/dL (250-450); PERCENT IRON SATURATION 24.2 % (15.0-55.0); Phosphorus 3.8 mg/dL (2.5-4.9); Potassium 3.5 mmol/L (3.5-5.1); Sodium Level 143 mmol/L (136-145)
[2022-02-12 09:50] LABS: Platelet Estimate MOD DEC (ADEQ); Platelet Morphology LARGE
[2022-02-12 09:51] LABS: Anisocytosis 1+; Hypochromasia 1+
[2022-02-13 08:49] LABS: Vitamin B12 278 pg/mL (211-911)
[2022-02-13 08:51] LABS: PTHIN 74.4 pg/mL (18.4-80.1)
== END ==
LOC: OLS.DANBUR 05:00
PROVIDERS: PCP Family Medicine; Visit Provider Family Medicine
DX: I10 Essential (primary) hypertension (principal); D64.9 Anemia, unspecified; E78.5 Hyperlipidemia, unspecified; I25.10 Atherosclerotic heart disease of native coronary artery without angina pectoris; I51.7 Cardiomegaly
CPT/HCPCS: 36415; 80053; 82607; 82728; 82746; 83540; 83550; 83970; 84100; 85025

== ENCOUNTER → 2022-02-12 | Outpatient (REF) | payer MEDICARE, OTHER, SELFPAY ==
[2022-02-12 16:49] LABS: Color, Urine Yellow (Yellow); Glucose, Dipstick Normal (Normal); Ketone-Dipstick Negative (Negative); Leukocyte Esterase-Dipstick 25 /ul (Negative); Nitrite-Dipstick Positive (Negative); Occult Blood-Urine 10 /ul (Negative); Protein-Dipstick 30 mg/dl (Negative); Specific Gravity, Urine 1.025 (1.002-1.030); Urine Bilirubin Dipstick Negative (Negative); Urine Clarity Sl. Cloudy (Clear); Urine Urobilinogen Normal (Normal)
[2022-02-12 16:53] LABS: Protein, Urine (Random) 45.6 mg/dL (<11.9); Protein:Creat Ratio 200 mg/g CRE (0-200)
== END | disposition home or self-care (01) ==
LOC: OLS.DANBUR 15:30
PROVIDERS: PCP Family Medicine; Referring Provider Family Medicine; Visit Provider Family Medicine
DX: I10 Essential (primary) hypertension (principal); E78.5 Hyperlipidemia, unspecified; D64.9 Anemia, unspecified; I25.10 Atherosclerotic heart disease of native coronary artery without angina pectoris; I51.7 Cardiomegaly
CPT/HCPCS: 81002; 82570; 84156; 87077; 87086; 87088; 87186

== ENCOUNTER → 2022-04-27 | Outpatient (CLI) | payer MEDICARE, OTHER, SELFPAY ==
--- NOTE | 2022-04-27 10:38 | RAD_ITS ---
INDICATION: PAIN EXAMINATION/TECHNIQUE: X-RAY - RIGHT XR Hip Unilateral with Pelvis when performed; 2-3 Views 3 VIEWS COMPARISON: 10/15/2020. FINDINGS: SOFT TISSUES: No soft tissue swelling or gas. No radiopaque foreign body. Vascular calcifications seen. BONES/JOINTS: Mild narrowing of the right hip joint space is seen, mild degenerative changes visualized, unremarkable alignment with no evidence of dislocation. No evidence of cortical irregularity or lucency to suggest a fracture. Unremarkable left shoulder prosthesis. Degenerative changes visualized in the pelvic bones most prominent in the lumbosacral junction. RAD/HIP, UNI W/ Pelvis 2-3 Views IMPRESSION: Degenerative changes, no evidence of acute osseous abnormality is seen Electronically Signed: Elie Cosby MD at 14:19 EDT ,
--- NOTE | 2022-04-27 10:38 | RAD_ITS ---
HISTORY: PAIN. TECHNIQUE: XR Knee 3 Views. COMPARISON: 08/14/2019. FINDINGS: BONES : No acute fracture identified. Osteopenia and degenerative osteophytes present. JOINTS: No dislocation. Degenerative change of lateral compartment joint space narrowing and remodeling. Joint effusion. RAD/Knee 3 Views IMPRESSION: No acute fracture or dislocation identified.Degenerative changes of the right knee with joint effusion. Electronically Signed: Shabana Singh MD at 16:34 EDT ,
== END | disposition home or self-care (01) ==
PROVIDERS: PCP Family Medicine; Referring Provider Family Medicine; Visit Provider Family Medicine
DX: M17.11 Unilateral primary osteoarthritis, right knee (principal); M16.11 Unilateral primary osteoarthritis, right hip
CPT/HCPCS: 73502; 73562

== ENCOUNTER → 2022-06-10 | Outpatient (REF) | payer MEDICARE, OTHER, SELFPAY ==
[2022-06-10 09:41] LABS: Absolute Lymphocyte Count 0.62 X10^3/uL (0.83-4.51); Absolute Neutrophil Count 3.8 X10^3/uL (2.0-7.7); Basophil# 0.03 X10^3/uL; Basophil% 0.6 % (0-1); Hematocrit 32.1 % (37-47); Hemoglobin 9.8 g/dL (12.0-15.0); Lymphocyte # 0.62 X10^3/ul (0.83-4.51); Lymphocyte % 12.5 % (19-41); Mean Corp Hgb Conc 30.5 g/dL (32-36); Mean Corpuscular Hgb 34.1 pg (27.0-32.0); Mean Corpuscular Volume 111.8 fL (81-99); Mean Platelet Vol. 11.9 fl (6.2-12.0); Monocyte# 0.44 X10^3/uL; Monocyte% 8.9 % (0-10); NRBC Flagged by Analyzer 0 % (0-5); Neutrophil # 3.75 X10^3/uL (2.7-7.7); Neutrophil % 75.4 % (47-70); POSITIVE COUNT YES; POSITIVE MORPHOLOGY YES; RBC Distribution Width CV 18.6 % (11.6-14.6); RBC Distribution Width SD 76.9 fl (35.1-43.9); Red Blood Count 2.87 M/mm3 (4.2-5.4)
[2022-06-10 09:53] LABS: Protein, Urine (Random) 19.6 mg/dL (<11.9); Protein:Creat Ratio 337 mg/g CRE (0-200)
[2022-06-10 10:12] LABS: Differential Indicated SCAN CRITERIA MET
[2022-06-10 10:13] LABS: PTHIN 73.7 pg/mL (18.4-80.1); Platelet Estimate MOD DEC (ADEQ)
[2022-06-10 10:17] LABS: Hemoglobin A1c 4.9 % (3.8-5.6); Vitamin B12 275 pg/mL (211-911)
[2022-06-10 10:36] LABS: ALB/GLOB Ratio 0.9 RATIO (0.9-2.4); AST(SGOT) 24 U/L (15-37); Alanine Aminotransfer ALT/SGPT 25 U/L (13-56); Albumin, Serum 3.2 g/dL (3.2-5.0); Alkaline Phosphatase 98 U/L (45-117); Anion Gap 7 (5-15); BUN 21 mg/dL (7-18); BUN/Creat Ratio 24.3 RATIO (10-20); Calcium,Total 8.9 mg/dL (8.5-10.1); Chloride 106 mmol/L (98-107); Cholesterol 194 mg/dL (200); Creatinine, Serum 0.86 mg/dL (0.55-1.02); EST Glomerular Filtration Rate 66 mL/min (>60); Est Glom Filt Rate - Afr Amer 80 mL/min (>60); Ferritin 340 ng/mL (8-252); Globulin 3.4 g/dL (2.2-4.2); Glucose 87 mg/dL (74-106); High Density Lipoprotein 56 mg/dL; Iron 58 ug/dL (50-170); Iron Binding Capacity,Total 336 ug/dL (250-450); PERCENT IRON SATURATION 17.3 % (15.0-55.0); Potassium 4.1 mmol/L (3.5-5.1); Protein, Total 6.6 g/dL (6.4-8.2); Sodium Level 139 mmol/L (136-145); Triglycerides 47 mg/dL; Very Low Density Lipoprotein 9 mg/dL (5-40)
== END ==
LOC: OLS.DANBUR 05:00
PROVIDERS: PCP Family Medicine
DX: D64.9 Anemia, unspecified (principal); N18.9 Chronic kidney disease, unspecified; R73.02 Impaired glucose tolerance (oral)
CPT/HCPCS: 36415; 80053; 80061; 82570; 82607; 82728; 82746; 83036; 83540; 83550; 83970; 84100; 84156; 85025

== ENCOUNTER 2022-08-02 19:20 | Emergency (ER) | payer MEDICARE, OTHER, SELFPAY ==
[2022-08-02 19:21] VITALS: PULSE 66; RESP 18; TEMP 36.1; O2SAT 96; BMI 20.9
[2022-08-02 19:27] VITALS: O2SAT 98
--- NOTE | 2022-08-02 20:47 | CT_ITS ---
STUDY: CT BRAIN WITHOUT CONTRAST REASON FOR EXAM: Female, 87 years old. head injury RADIATION DOSAGE (If Supplied By Facility): CTDIvol = ( 29.71 ) mGy, DLP = ( 548.95 ) mGycm TECHNIQUE: Transaxial CT imaging of the brain was performed without administration of intravenous contrast material. Individualized dose optimization techniques were used for this CT. COMPARISON: 10/14/2020. FINDINGS: Normal soft tissue structures. Normal calvarium. There is mild cerebral atrophy with widening of the extra-axial spaces and ventricular dilatation. There are areas of decreased attenuation within the white matter tracts of the supratentorial brain, consistent with microvascular disease changes. There is no intracranial hemorrhage. There are no findings of an acute ischemic infarction. Normal visualized paranasal sinuses. CT/Brain/Head without Contrast IMPRESSION: No acute findings. Microvascular ischemic changes. Atrophy. Electronically Signed: Dari Willett MD at 21:36 EST Reading Location ID and State: [id number] / Tel , Service support ,
--- NOTE | 2022-08-02 21:14 | EX.ED.DYSGE1 ---
HPI History of Present Illness Chief Complaint: Fall Narrative Narrative: 87-year-old female from memory care unit. She is a poor informant. Nursing stated that they were helping her to the restroom and they accidentally dropped her and she hit her head on the commode. No LOC noted. Patient is acting at her baseline. She has a superficial laceration to the occiput. [facility] Medical History Acute myocardial infarction Anemia Atherosclerotic heart disease of [place] coronary artery without angina pectoris Atrioventricular block, complete Bilateral carotid bruits Cerebrovascular accident Essential hypertension Hyperlipidemia Iron deficiency anemia due to chronic blood loss LVH (left ventricular hypertrophy) Nonrheumatic aortic (valve) stenosis Nonrheumatic mitral valve stenosis with insufficiency Palpitations Pulmonary HTN Supraventricular tachycardia Thrombocytopenia Home Medications ferrous sulfate 325 mg (65 mg iron) tablet 325 mg PO DAILY Supplement #30 tabs 11/03/20 [Rx Last Taken Unknown] menthol 0.44 %-zinc oxide 20.6 % topical ointment 1 applic topical BID 11/03/20 [Rx Last Taken Unknown] nystatin 100,000 unit/gram topical powder 1 applic topical BID 11/03/20 [Rx Last Taken Unknown] escitalopram oxalate 20 mg tablet 20 mg PO DAILY 12/09/20 [History Last Taken Unknown] ibuprofen 200 mg tablet 400 mg PO Q6H PRN Pain 12/09/20 [History Last Taken Unknown] magnesium hydroxide 400 mg/5 mL oral suspension (Milk of Magnesia) 30 ml PO DAILY PRN abdomin 12/09/20 [History Last Taken Unknown] simvastatin 40 mg tablet 40 mg PO QHS 06/22/21 [History Last Taken Unknown] ondansetron 4 mg disintegrating tablet 4 mg PO Q8H PRN Nausea 08/26/21 [History Last Taken Unknown] metoprolol tartrate 50 mg tablet 50 mg PO BID BP #180 tabs 09/10/21 [Rx Last Taken Unknown] acetaminophen 500 mg tablet 1,000 mg PO TID PRN Pain 12/24/21 [History Last Taken Unknown] calcium carbonate 600 mg-vitamin D3 12.5 mcg (500 unit) capsule (Calcium 600 with Vitamin D3) 1 cap PO DAILY 12/24/21 [History Last Taken Unknown] lisinopril 2.5 mg tablet 2.5 mg PO DAILY 12/24/21 [History Last Taken Unknown] loperamide 2 mg tablet 4 mg PO Q6H PRN Diarrhea 12/24/21 [History Last Taken Unknown] omeprazole 20 mg tablet,delayed release 20 mg PO BID 12/24/21 [History Last Taken Unknown] Allergy/AdvReac Type Severity Reaction Status Date / Time buspirone [From BuSpar] Allergy Unknown Unknown Verified 01/09/22 20:55 cimetidine [From Tagamet] Allergy Unknown unknown Verified 01/09/22 20:55 Family History Other No pertinent family history Surgical History History of cholecystectomy History of hysterectomy History of left heart catheterization (LHC) (~07/27/12) Presence of permanent cardiac pacemaker Social History housing: long term Smoking Status: Never smoker alcohol intake: never substance use type: does not use caffeine: Yes what type of physical activity do you participate in: none do you feel safe at home: Yes ROS ROS ED Review of Systems ROS Unobtainable: due to mental status EXAM Physical Exam Const Vital Signs: 08/02/22 19:21 08/02/22 19:27 Temperature 96.9 F L Temperature Source Temporal Pulse Rate 66 Respiratory Rate 18 Respiratory Effort Normal Non-Labored Respiratory Depth Normal Respiratory Pattern Normal Pulse Ox 96 98 Oxygen Delivery Method Room Air Room Air Positive well nourished HEENT Reports moist mucous membranes Eyes PERRL and EOMs intact bilaterally Chest Wall inspection of chest normal Resp normal respiratory effort and clear to auscultation bilaterally Auscultation: Negative for rales, rhonchi or wheezes Cardio regular rate and regular rhythm GI normal to inspection, nondistended, normoactive bowel sounds Extremity normal to inspection General Extremety ED: Negative for edema or tenderness General Extremity: Negative for edema Neuro CN's II-XII intact bilaterally and no sensory deficits noted Sensorium / Orientation: alert Motor Exam: general weakness Psych mental status grossly normal Skin Skin Narrative: Superficial abrasion to the occipital region MDM MDM MDM Narrative Medical decision making narrative: Patient presenting with head injury. Apparently she fell through her caregivers hands and hit her head on the toilet. No LOC reported. She is not anticoagulated. She is acting at her baseline. CT of the brain here is negative. I do not believe she needs blood work or further imaging. She is discharged back to her nursing facility. Impression: 1. Closed head injury 2. Superficial laceration to skin Lab Data Attestation: I reviewed the patient's lab results. Radiography Diagnostic Testing: Clinical Impression(s) from Imaging Studies Brain CT 08/02/22 20:47 IMPRESSION: No acute findings. Microvascular ischemic changes. Atrophy. Electronically Signed: Dari Willett MD at 21:36 EST , Discharge Plan Triage Chief Complaint: Fall ED Provider: Jai Ayala Dx/Rx/DC Orders Prescriptions: No Action escitalopram oxalate 20 mg tablet 20 mg PO DAILY ibuprofen 200 mg tablet 400 mg PO Q6H PRN (Reason: Pain) magnesium hydroxide [Milk of Magnesia] 400 mg/5 mL suspension 30 ml PO DAILY PRN (Reason: abdomin) loperamide 2 mg tablet 4 mg PO Q6H PRN (Reason: Diarrhea) simvastatin 40 mg tablet 40 mg PO QHS acetaminophen 500 mg tablet 1,000 mg PO TID PRN (Reason: Pain) calcium carbonate-vitamin D3 [Calcium 600 with Vitamin D3] 600 mg-12.5 mcg (500 unit) capsule 1 cap PO DAILY lisinopril 2.5 mg tablet 2.5 mg PO DAILY nystatin 1 APPLIC bottle 1 applic TOPICAL BID 0RF Protocol: *Topical Application Instructions APPLICATION INSTRUCTIONS: Groin menthol-zinc oxide 1 APPLIC ointment 1 applic TOPICAL BID 0RF Protocol: *Topical Application Instructions APPLICATION INSTRUCTIONS: Bilateral Buttocks ferrous sulfate 325 mg (65 mg iron) tablet 325 mg PO DAILY Qty: 30 0RF ondansetron 4 mg tablet,disintegrating 4 mg PO Q8H PRN (Reason: Nausea) metoprolol tartrate 50 mg tablet 50 mg PO BID Qty: 180 3RF omeprazole 20 mg tablet,delayed release (DR/EC) 20 mg PO BID Primary Care Provider: Johnny Harkins Referrals: Johnny Harkins MD [Primary Care Provider] -
[2022-08-02 21:58] VITALS: O2SAT 99
== END 2022-08-02 23:36 | disposition home or self-care (01) ==
PROVIDERS: Emergency Provider Student in an Organized Health Care Education/Training Program; PCP Family Medicine; Visit Provider Student in an Organized Health Care Education/Training Program
DX: S09.90XA Unspecified injury of head, initial encounter (principal); I25.10 Atherosclerotic heart disease of native coronary artery without angina pectoris; Z95.0 Presence of cardiac pacemaker; X58.XXXA Exposure to other specified factors, initial encounter
CPT/HCPCS: 70450; 99284

== ENCOUNTER → 2022-09-16 | Outpatient (REF) | payer MEDICARE, OTHER, SELFPAY ==
[2022-09-16 05:47] LABS: Hematocrit 27.1 % (37-47); Hemoglobin 8.5 g/dL (12.0-15.0); Mean Corp Hgb Conc 31.4 g/dL (32-36); Mean Corpuscular Hgb 33.1 pg (27.0-32.0); Mean Corpuscular Volume 105.4 fL (81-99); POSITIVE COUNT YES; POSITIVE MORPHOLOGY YES; Platelet Count 66 K/mm3 (150-450); RBC Distribution Width CV 17.2 % (11.6-14.6); RBC Distribution Width SD 66.4 fl (35.1-43.9); Red Blood Count 2.57 M/mm3 (4.2-5.4); White Blood Count 5.6 K/mm3 (4.4-11.0)
[2022-09-16 05:49] LABS: Scan Indicated on CBC? Y/N YES- FLAGS NOTED
== END ==
LOC: OLS.DANBUR 05:00
PROVIDERS: PCP Family Medicine; Visit Provider Family Medicine
DX: D64.9 Anemia, unspecified (principal)
CPT/HCPCS: 36415; 85027

== ENCOUNTER → 2022-12-09 | Outpatient (REF) | payer MEDICARE, OTHER, SELFPAY ==
[2022-12-09 08:08] LABS: Hemoglobin 9.6 g/dL (12.0-15.0); Mean Corpuscular Hgb 33.2 pg (27.0-32.0); Mean Corpuscular Volume 107.3 fL (81-99); POSITIVE COUNT YES; POSITIVE MORPHOLOGY YES; Platelet Count 59 K/mm3 (150-450); RBC Distribution Width CV 19.4 % (11.6-14.6); RBC Distribution Width SD 75.2 fl (35.1-43.9); Red Blood Count 2.89 M/mm3 (4.2-5.4); White Blood Count 5.2 K/mm3 (4.4-11.0)
[2022-12-09 08:12] LABS: Scan Indicated on CBC? Y/N YES- FLAGS NOTED
[2022-12-09 08:14] LABS: Anion Gap 8 (5-15); BUN 21 mg/dL (7-18); BUN/Creat Ratio 18.3 RATIO (10-20); Calcium,Total 8.6 mg/dL (8.5-10.1); Chloride 111 mmol/L (98-107); Creatinine, Serum 1.15 mg/dL (0.55-1.02); EST Glomerular Filtration Rate 47 mL/min (>60); Est Glom Filt Rate - Afr Amer 57 mL/min (>60); Glucose 97 mg/dL (74-106); Potassium 3.9 mmol/L (3.5-5.1); Sodium Level 145 mmol/L (136-145)
== END ==
LOC: OLS.DANBUR 05:00
PROVIDERS: PCP Family Medicine; Visit Provider Family Medicine
DX: D64.9 Anemia, unspecified (principal); I10 Essential (primary) hypertension
CPT/HCPCS: 36415; 80048; 85027

== ENCOUNTER → 2022-12-14 | Outpatient (REF) | payer MEDICARE, OTHER, SELFPAY ==
[2022-12-14 09:33] LABS: Anion Gap 6 (5-15); BUN 26 mg/dL (7-18); BUN/Creat Ratio 22.4 RATIO (10-20); Calcium,Total 8.6 mg/dL (8.5-10.1); Chloride 109 mmol/L (98-107); Creatinine, Serum 1.16 mg/dL (0.55-1.02); EST Glomerular Filtration Rate 47 mL/min (>60); Est Glom Filt Rate - Afr Amer 57 mL/min (>60); Glucose 91 mg/dL (74-106); Potassium 4.3 mmol/L (3.5-5.1); Sodium Level 142 mmol/L (136-145)
== END ==
LOC: OLS.DANBUR 05:00
PROVIDERS: PCP Family Medicine; Visit Provider Family Medicine
DX: I10 Essential (primary) hypertension (principal); E78.5 Hyperlipidemia, unspecified
CPT/HCPCS: 36415; 80048